=== PATIENT | male | born 1940 | race Two or more races ===

== ENCOUNTER 2019-12-25 09:42 | Inpatient (IN) | payer OTHER, MEDICAID ==
[~2019-12-25] VITALS: Ht 162.6 cm; Wt 49.6 kg
[~2019-12-25 09:42] MED LIST: MULT-48 OR; NIF10C GT
[2019-12-25 10:17] LABS: Basophils # (auto) 0 10 ^3/uL (0-0.2); Basophils % (auto) 0.4 % (0.0-2.0); Eosinophils # (auto) 0.2 10 ^3/uL (0-0.8); Eosinophils % (auto) 2.6 % (0.0-7.0); Hematocrit 42.8 % (41.0-53.0); Hemoglobin 13.9 g/dL (13.5-17.5); Lymphocytes # (auto) 2.5 10 ^3/uL (0.4-5.4); Lymphocytes % (auto) 34.8 % (10.0-50.0); Mean Corpuscular Hemoglobin 32.5 pg (28.0-32.0); Mean Corpuscular Hgb Conc. 32.6 g/dL (32.0-36.0); Mean Corpuscular Volume 99.8 fL (80.0-100.0); Monocytes # (auto) 0.9 10 ^3/uL (0-1.3); Monocytes % (auto) 11.8 % (0.0-12.0); Neutrophils # (auto) 3.7 10 ^3/uL (1.6-8.6); Neutrophils % (auto) 50.4 % (37.0-80.0); Platelet Count (auto) 234 10^3/uL (140-450); Red Blood Cells 4.29 10^6/uL (4.5-5.90); Red Cell Distribution Width 13.9 % (11.8-14.3); White Blood Cell 7.3 10^3/uL (4.4-10.8)
[2019-12-25 10:36] LABS: INR 1.01 (0.9-1.15); Partial Thromboplastin Time 27.9 sec (23.64-32.05)
[2019-12-25 10:38] LABS: Albumin 3.1 g/dL (3.4-5.0); BUN/Creatinine Ratio 17.1; Calcium 8.7 mg/dL (8.5-10.1); Potassium 4.2 mmol/L (3.5-5.1)
[2019-12-25 10:43] LABS: Bilirubin, Total 0.6 mg/dL (0.2-1.0); Total Protein 8.2 g/dL (6.4-8.2)
[2019-12-25] MEDS ORDERED: ASPirin 81 mg TAB PO ONE (11:00)
[2019-12-25] MEDS ORDERED: HEPARIN SODIUM (PORCINE) 5000 UNITS/ML 1ML VIAL IV ONE ×2 (11:00→11:30)
[2019-12-25] MEDS ORDERED: ASPirin 325 MG TAB PO ONE (11:30)
[2019-12-25] MEDS ORDERED: LOSA-39 PO (14:12)
[2019-12-25] MEDS ORDERED: CHOL10009 PO (14:12)
[2019-12-25] MEDS ORDERED: MORPHINE SULF INJ 2 MG/ML SYRINGE 1ML IV PRN ×2 (14:15)
[2019-12-25] MEDS ORDERED: NITROGLYCERIN 0.4 MG SL TAB SL PRN (14:15)
[2019-12-25] MEDS ORDERED: hydrALAZINE HCL 20 MG/ML VL IV PRN (14:15)
[2019-12-25] MEDS ORDERED: ONDANSETRON HCL 4 MG/2 ML VIAL IV PRN (14:15)
[2019-12-25] MEDS ORDERED: ACETAMINOPHEN 500 MG TAB PO PRN (14:15)
[2019-12-25] MEDS ORDERED: HYDROcodone-ACET 5/325MG TAB PO PRN (14:15)
[2019-12-25] MEDS ORDERED: LIDOCAINE 2%HCL (LOCAL ANESTH.) INJ 20ML MDV ONE (14:17)
[2019-12-25] MEDS ORDERED: IODIXANOL 320MG/ML 100ML BTL IV ONE ×2 (14:17→15:27)
[2019-12-25] MEDS ORDERED: ANGIOMAX 250 MG VIAL IV ONE (15:00)
[2019-12-25] MEDS ORDERED: fentaNYL CITRATE 100 MCG/2 ML VL ONE (15:00)
[2019-12-25] MEDS ORDERED: MIDAZOLAM HCL 1MG/1ML-2 ML VIAL ONE (15:00)
[2019-12-25] MEDS ORDERED: SODIUM CHL 0.9% 50 ML ONE (15:01)
[2019-12-25 15:07] LABS: Cholesterol 171 mg/dL (< 200); HDL Cholesterol 44 mg/dL (40-59); LDL Cholesterol 127 mg/dL (< 100); Triglycerides 116 mg/dL (< 150)
[2019-12-25] MEDS ORDERED: HEPARIN SODIUM (PORCINE) 5000 UNITS/ML 1ML VIAL ONE (15:17)
[2019-12-25] MEDS ORDERED: VERAPAMIL 2.5MG/ML INJ 2ML VIAL IV ONE (15:17)
[2019-12-25] MEDS ORDERED: CLOPIDOGREL 300 MG TAB ONE (15:49)
[2019-12-25 20:00] VITALS: BP 144/72
[2019-12-25] MEDS: ATORVASTATIN 20 MG TAB PO SCH (21:05)
[2019-12-25] MEDS: FAMOTIDINE 20 MG TAB PO SCH (21:06)
[2019-12-25] MEDS ORDERED: LUTE6TAB PO (23:59)
[2019-12-26] VITALS: BP 139/56
[2019-12-26 04:00] VITALS: BP 123/52
[2019-12-26 05:45] LABS: Basophils # (auto) 0 10 ^3/uL (0-0.2); Basophils % (auto) 0.4 % (0.0-2.0); Eosinophils # (auto) 0.3 10 ^3/uL (0-0.8); Eosinophils % (auto) 3.7 % (0.0-7.0); Hematocrit 36.4 % (41.0-53.0); Hemoglobin 12.5 g/dL (13.5-17.5); Lymphocytes # (auto) 1.9 10 ^3/uL (0.4-5.4); Lymphocytes % (auto) 26.7 % (10.0-50.0); Mean Corpuscular Hemoglobin 33.6 pg (28.0-32.0); Mean Corpuscular Hgb Conc. 34.5 g/dL (32.0-36.0); Mean Corpuscular Volume 97.4 fL (80.0-100.0); Monocytes # (auto) 0.9 10 ^3/uL (0-1.3); Monocytes % (auto) 13.4 % (0.0-12.0); Neutrophils # (auto) 3.9 10 ^3/uL (1.6-8.6); Neutrophils % (auto) 55.8 % (37.0-80.0); Nucleated Red Blood Cells % 0.1 %; Platelet Count (auto) 202 10^3/uL (140-450); Red Blood Cells 3.74 10^6/uL (4.5-5.90); Red Cell Distribution Width 13.3 % (11.8-14.3)
[2019-12-26 05:52] LABS: INR 1.04 (0.9-1.15); Partial Thromboplastin Time 30.3 sec (23.64-32.05)
[2019-12-26 05:58] LABS: Cholesterol 154 mg/dL (< 200)
[2019-12-26 06:00] LABS: HDL Cholesterol 37 mg/dL (40-59); LDL Cholesterol 107 mg/dL (< 100); Triglycerides 100 mg/dL (< 150)
[2019-12-26 06:03] LABS: Potassium 3.7 mmol/L (3.5-5.1)
[2019-12-26 06:08] LABS: BUN/Creatinine Ratio 18.9
[2019-12-26 08:00] VITALS: BP 132/48
[2019-12-26] MEDS: ASPirin-EC 81 mg tab PO SCH (09:34)
[2019-12-26] MEDS ORDERED: LISINOPRIL 10 MG TAB PO SCH (10:00)
[2019-12-26] MEDS: CLOPIDOGREL BISULFATE 75 MG TAB PO SCH (10:00)
[2019-12-26] MEDS ORDERED: LOSARTAN POTASSIUM 50 MG TAB PO SCH ×2 (10:00)
[2019-12-26 11:45] VITALS: BP 126/50
[2019-12-26] MEDS ORDERED: FUROSEMIDE 20 MG/2 ML VIAL IV ONE (15:45)
[2019-12-26 16:00] VITALS: BP 142/53
[2019-12-26 20:00] VITALS: BP 140/55
[2019-12-26] MEDS: ATORVASTATIN 20 MG TAB PO SCH (22:18)
[2019-12-26] MEDS: FAMOTIDINE 20 MG TAB PO SCH (22:18)
[2019-12-27] VITALS (9 sets, daily range): BP systolic 103–144; BP diastolic 29–67
[2019-12-27 06:57] LABS: Basophils # (auto) 0 10 ^3/uL (0-0.2); Basophils % (auto) 0.2 % (0.0-2.0); Eosinophils # (auto) 0.3 10 ^3/uL (0-0.8); Eosinophils % (auto) 3.2 % (0.0-7.0); Hematocrit 38.9 % (41.0-53.0); Hemoglobin 13.6 g/dL (13.5-17.5); Lymphocytes # (auto) 2.6 10 ^3/uL (0.4-5.4); Lymphocytes % (auto) 31.3 % (10.0-50.0); Mean Corpuscular Hemoglobin 34.3 pg (28.0-32.0); Monocytes # (auto) 1.2 10 ^3/uL (0-1.3); Neutrophils # (auto) 4.2 10 ^3/uL (1.6-8.6); Neutrophils % (auto) 50.3 % (37.0-80.0); Nucleated Red Blood Cells % 0.1 %; Platelet Count (auto) 194 10^3/uL (140-450); Red Blood Cells 3.97 10^6/uL (4.5-5.90); Red Cell Distribution Width 13.4 % (11.8-14.3); White Blood Cell 8.3 10^3/uL (4.4-10.8)
[2019-12-27 07:16] LABS: Albumin 2.6 g/dL (3.4-5.0); Calcium 8.5 mg/dL (8.5-10.1); Magnesium 2.2 mg/dL (1.6-2.6); Potassium 3.5 mmol/L (3.5-5.1)
[2019-12-27 07:20] LABS: BUN/Creatinine Ratio 17.7; Bilirubin, Total 0.6 mg/dL (0.2-1.0); Total Protein 7.3 g/dL (6.4-8.2)
[2019-12-27 07:49] LABS: INR 1.01 (0.9-1.15); Partial Thromboplastin Time 29.1 sec (23.64-32.05)
[2019-12-27] MEDS: ASPirin-EC 81 mg tab PO SCH (09:20)
[2019-12-27] MEDS: CLOPIDOGREL BISULFATE 75 MG TAB PO SCH (09:21)
[2019-12-27] MEDS ORDERED: LIDOCAINE 2%HCL (LOCAL ANESTH.) INJ 20ML MDV ONE (14:33)
[2019-12-27] MEDS ORDERED: fentaNYL CITRATE 100 MCG/2 ML VL ONE (14:52)
[2019-12-27] MEDS ORDERED: ceFAZolin 1GM/50ML 50 ML IV ONE (14:52)
[2019-12-27] MEDS ORDERED: MIDAZOLAM HCL 1MG/1ML-2 ML VIAL ONE (14:52)
[2019-12-27] MEDS ORDERED: VANCOMYCIN HCL 1000 MG VL ONE (14:52)
[2019-12-27] MEDS ORDERED: VANCOMYCIN 1GM/250ML 250 ML IV ONE (14:53)
[2019-12-27] MEDS ORDERED: diphenhdrAMINE HCL 50 MG/1 ML VL ONE (15:16)
[2019-12-27] MEDS: FUROSEMIDE 20 MG/2 ML VIAL IV SCH (16:36)
[2019-12-27] MEDS: ATORVASTATIN 20 MG TAB PO SCH (21:02)
[2019-12-27] MEDS: FAMOTIDINE 20 MG TAB PO SCH (21:02)
[2019-12-28 05:31] VITALS: BP 137/68
[2019-12-28 09:00] VITALS: BP 126/72
[2019-12-28] MEDS: ASPirin-EC 81 mg tab PO SCH (10:07)
[2019-12-28] MEDS: FUROSEMIDE 20 MG/2 ML VIAL IV SCH (10:07)
[2019-12-28] MEDS: CLOPIDOGREL BISULFATE 75 MG TAB PO SCH (10:07)
[2019-12-28] MEDS ORDERED: ATOR20TA50 PO (10:23)
[2019-12-28] MEDS ORDERED: METO25TA5 PO (10:23)
[2019-12-28] MEDS ORDERED: ASP81EC PO (10:23)
[2019-12-28] MEDS ORDERED: CLOP75TA28 PO (10:23)
[2019-12-28 12:33] VITALS: BP 126/72
[2019-12-28 13:00] VITALS: BP 131/66
== END 2019-12-28 13:50 | disposition home or self-care (01) | DRG 242 ==
LOC: ER 09:42 → ICU CENTRL 09:43 → ER 11:52 → DOU IN ICU 19:52 → TELE-CENTR 12-27 21:20
PROVIDERS: ADMIT Nurse Practitioner Acute Care; ATTEND Internal Medicine
PROC: 027135Z Dilation of Coronary Artery, Two Arteries with Two Drug-eluting Intraluminal Devices, Percutaneous Approach (ICD-10-PCS; 2019-12-25)
PROC: 4A023N7 Measurement of Cardiac Sampling and Pressure, Left Heart, Percutaneous Approach (ICD-10-PCS; 2019-12-25)
PROC: B2111ZZ Fluoroscopy of Multiple Coronary Arteries using Low Osmolar Contrast (ICD-10-PCS; 2019-12-25)
PROC: B2151ZZ Fluoroscopy of Left Heart using Low Osmolar Contrast (ICD-10-PCS; 2019-12-25)
PROC: 0JH606Z Insertion of Pacemaker, Dual Chamber into Chest Subcutaneous Tissue and Fascia, Open Approach (ICD-10-PCS; principal; 2019-12-27)
PROC: 02H63JZ Insertion of Pacemaker Lead into Right Atrium, Percutaneous Approach (ICD-10-PCS; 2019-12-27)
PROC: 02HK3JZ Insertion of Pacemaker Lead into Right Ventricle, Percutaneous Approach (ICD-10-PCS; 2019-12-27)
DX: I21.4 Non-ST elevation (NSTEMI) myocardial infarction (principal); I50.31 Acute diastolic (congestive) heart failure; I44.2 Atrioventricular block, complete; R00.1 Bradycardia, unspecified; I25.10 Atherosclerotic heart disease of native coronary artery without angina pectoris; E78.5 Hyperlipidemia, unspecified; F17.210 Nicotine dependence, cigarettes, uncomplicated; I11.0 Hypertensive heart disease with heart failure; J44.9 Chronic obstructive pulmonary disease, unspecified
CPT/HCPCS: 33208; 36415; 71045; 80048; 80053; 80061; 83735; 83880; 84443; 84484; 85025; 85610; 85730; 86141; 86850; 86900; 86901; 87081; 92928; 93005; 93306; 93458; 96361; 96374; 96375; 99152; 99153; C1785; C1874; C1887; G0378; J0690; J2250; Q9967

== ENCOUNTER 2022-04-04 07:00 | Emergency (ER) | payer OTHER, MEDICAID ==
[~2022-04-04] VITALS: Ht 167.6 cm; Wt 57.2 kg
[~2022-04-04 07:00] MED LIST changes: +ASPI-394 PO; +ATOR20TA50 PO; +CHOL10009 PO; +CLOP75TA28 PO; +LOSA-39 PO; +METO25TA5 PO; -MULT-48 OR; -NIF10C GT
[2022-04-04 08:06] LABS: Basophils # (auto) 0 10 ^3/uL (0-0.2); Basophils % (auto) 0.3 % (0.0-2.0); Eosinophils # (auto) 0.1 10 ^3/uL (0-0.8); Eosinophils % (auto) 2.5 % (0.0-7.0); Hematocrit 33.9 % (41.0-53.0); Hemoglobin 11.2 g/dL (13.5-17.5); Lymphocytes # (auto) 2.2 10 ^3/uL (0.4-5.4); Lymphocytes % (auto) 37.5 % (10.0-50.0); Mean Corpuscular Hemoglobin 32.2 pg (28.0-32.0); Mean Corpuscular Hgb Conc. 33.1 g/dL (32.0-36.0); Mean Corpuscular Volume 97.3 fL (80.0-100.0); Monocytes # (auto) 0.7 10 ^3/uL (0-1.3); Monocytes % (auto) 12.2 % (0.0-12.0); Neutrophils # (auto) 2.8 10 ^3/uL (1.6-8.6); Neutrophils % (auto) 47.5 % (37.0-80.0); Nucleated Red Blood Cells % 0.1 %; Red Blood Cells 3.49 10^6/uL (4.5-5.90); Red Cell Distribution Width 14.3 % (11.8-14.3); White Blood Cell 5.9 10^3/uL (4.4-10.8)
[2022-04-04 08:19] LABS: Albumin 2.6 g/dL (3.4-5.0); BUN/Creatinine Ratio 19.1; Calcium 7.8 mg/dL (8.5-10.1); Magnesium 2.1 mg/dL (1.6-2.6); Potassium 3.6 mmol/L (3.5-5.1)
[2022-04-04 08:22] LABS: Bilirubin, Total 0.4 mg/dL (0.2-1.0); Total Protein 7.6 g/dL (6.4-8.2)
[2022-04-04] MEDS ORDERED: SODIUM CHLORIDE 0.9% 1,000 ML IV ONE (08:30)
[2022-04-04 09:08] LABS: INR 1.02 (0.9-1.15); Partial Thromboplastin Time 26.5 sec (23.6-33.0)
[2022-04-04 09:12] LABS: Urine Bacteria NONE SEEN /hpf (None Seen); Urine Blood Negative /uL (Negative); Urine Specific Gravity 1.012 (1.001-1.035); Urine WBC <1 /hpf (0 - 3)
[2022-04-04] MEDS ORDERED: cloNIDine HCL 0.1 MG TAB PO ONE (11:15)
[2022-04-04] MEDS ORDERED: IOHEXOL 350 MG/ML 100ML IJ ONE (11:32)
[2022-04-04 13:01] VITALS: BP 140/58
[2022-04-04] MEDS ORDERED: CEFD300C2 PO (13:33)
== END 2022-04-04 13:52 | disposition home or self-care (01) ==
LOC: ER 07:00
DX: R00.2 Palpitations (principal); R06.02 Shortness of breath; R59.0 Localized enlarged lymph nodes; I12.9 Hypertensive chronic kidney disease with stage 1 through stage 4 chronic kidney disease, or unspecified chronic kidney disease; N18.30 Chronic kidney disease, stage 3 unspecified; J44.9 Chronic obstructive pulmonary disease, unspecified; Z95.0 Presence of cardiac pacemaker; Z87.891 Personal history of nicotine dependence; Z79.82 Long term (current) use of aspirin; Z79.01 Long term (current) use of anticoagulants; Z79.899 Other long term (current) drug therapy
CPT/HCPCS: 36415; 71046; 71275; 80053; 81001; 82962; 83735; 83880; 84443; 84484; 85025; 85379; 85610; 85730; 93005; 96360; 96361; 99285; J7030; Q9967

== ENCOUNTER 2024-02-14 14:47 | Emergency (ER) | payer OTHER, MEDICAID ==
[~2024-02-14 14:47] MED LIST changes: +CEFD300C2 PO; -LOSA-39 PO; +LOSA-535 PO
[2024-02-14 18:47] VITALS: BP 130/44; PULSE 60; RESP 18; TEMP 98.5; O2SAT 97
[2024-02-14] MEDS ORDERED: NAPHSOL OP (19:09)
[2024-02-14] MEDS: DexAMETHasone SOD PHOS 10MG/1ML VIAL INJ IM ONE (19:09)
== END 2024-02-14 19:37 | disposition home or self-care (01) ==
LOC: ER 14:47
DX: H10.13 Acute atopic conjunctivitis, bilateral (principal); J44.9 Chronic obstructive pulmonary disease, unspecified; I10 Essential (primary) hypertension; Z87.891 Personal history of nicotine dependence; Z95.0 Presence of cardiac pacemaker; Z79.899 Other long term (current) drug therapy
CPT/HCPCS: 96372; 99283; J1100

== ENCOUNTER 2024-04-10 12:43 | Emergency (ER) | payer OTHER, MEDICAID ==
[~2024-04-10] VITALS: Ht 162.6 cm; Wt 56.7 kg
[~2024-04-10 12:43] MED LIST changes: +NAPHSOL OP
[2024-04-10 14:24] VITALS: BP 121/61; PULSE 82; RESP 18; TEMP 97.6; O2SAT 98
[2024-04-10] MEDS ORDERED: SODI1KIT2 (14:42)
[2024-04-10] MEDS ORDERED: SALI0.6562 (14:42)
== END 2024-04-10 14:44 | disposition home or self-care (01) ==
LOC: ER 12:43
DX: R04.0 Epistaxis (principal); R09.81 Nasal congestion; I10 Essential (primary) hypertension; J44.9 Chronic obstructive pulmonary disease, unspecified; Z98.890 Other specified postprocedural states; Z79.899 Other long term (current) drug therapy

== ENCOUNTER 2024-05-28 09:27 | Inpatient (IN) | payer OTHER, MEDICAID ==
[~2024-05-28] VITALS: Ht 162.6 cm; Wt 58.9 kg
[~2024-05-28 09:27] MED LIST changes: +SALI0.6562; +SODI1KIT2
[2024-05-28 10:08] LABS: Basophils # (auto) 0 10 ^3/uL (0-0.2); Basophils % (auto) 0.4 % (0.0-2.0); Eosinophils # (auto) 0.4 10 ^3/uL (0-0.8); Eosinophils % (auto) 4.4 % (0.0-7.0); Hematocrit 26.6 % (41.0-53.0); Hemoglobin 8.4 g/dL (13.5-17.5); Lymphocytes # (auto) 3.3 10 ^3/uL (0.4-5.4); Lymphocytes % (auto) 37.3 % (10.0-50.0); Mean Corpuscular Hemoglobin 25.2 pg (28.0-32.0); Mean Corpuscular Hgb Conc. 31.4 g/dL (32.0-36.0); Mean Corpuscular Volume 80.3 fL (80.0-100.0); Monocytes # (auto) 1.1 10 ^3/uL (0-1.3); Monocytes % (auto) 12.6 % (0.0-12.0); Neutrophils % (auto) 45.3 % (37.0-80.0); Red Blood Cells 3.31 10^6/uL (4.5-5.90); Red Cell Distribution Width 16.6 % (11.8-14.3); White Blood Cell 8.8 10^3/uL (4.4-10.8)
[2024-05-28 10:24] LABS: Chloride 108 mmol/L (98-107); Potassium 4.6 mmol/L (3.5-5.1); Sodium 137 mmol/L (136-145)
[2024-05-28 10:25] LABS: Anion Gap 6 (5-15); Carbon Dioxide 23 mmol/L (20-30)
[2024-05-28 10:26] LABS: Calcium 8.9 mg/dL (8.7-10.4)
[2024-05-28 10:31] LABS: BUN/Creatinine Ratio 17.4 (10.0-20.0); Blood Urea Nitrogen 27 mg/dL (9-23); Glucose 101 mg/dL (74-106)
[2024-05-28 10:49] VITALS: PULSE 64; RESP 16; O2SAT 98
[2024-05-28] MEDS ORDERED: ACETAMINOPHEN 325 MG TAB PO PRN (13:00)
[2024-05-28] MEDS: SODIUM CHLORIDE 0.9% 1,000 ML IV SCH (13:00)
[2024-05-28] MEDS ORDERED: [UNRECOGNIZED DRUG - OTHER] SCH (13:15)
[2024-05-28 13:24] LABS: Triglycerides 101 mg/dL (< 150)
[2024-05-28 13:25] LABS: LDL Cholesterol 99 mg/dL (< 100)
[2024-05-28 13:26] LABS: Cholesterol 148 mg/dL (< 200); HDL Cholesterol 32 mg/dL (40-59)
[2024-05-28 13:31] LABS: INR 1.06 (0.9-1.15); Prothrombin Time 11.2 sec (9.3-11.8)
[2024-05-28 13:39] LABS: Anisocytosis Slight; Hypochromia Slight; Platelet Estimate Adequate
[2024-05-28 13:40] LABS: Nucleated Red Blood Cells % 0.2 %; Tear Drop Cells FEW
[2024-05-28 14:31] LABS: % Iron Saturation 7.2 % (20-55)
[2024-05-28] MEDS ORDERED: CHOL20007 OR (16:11)
[2024-05-28] MEDS ORDERED: APIX2.5T PO (16:11)
[2024-05-28 16:50] VITALS: PULSE 65; RESP 18
[2024-05-28 17:14] VITALS: BP 149/45; PULSE 60; RESP 16; TEMP 98.7; O2SAT 98
[2024-05-28 20:00] VITALS: PULSE 60; RESP 17; O2SAT 95
[2024-05-28 21:00] VITALS: BP 136/46; PULSE 63; RESP 17; TEMP 98.2; O2SAT 96
[2024-05-28] MEDS: ATORVASTATIN 20 MG TAB PO SCH (21:25)
[2024-05-28] MEDS ORDERED: METOPROLOL TARTRATE 25 MG TAB PO SCH (22:00)
[2024-05-29] VITALS (7 sets, daily range): BP systolic 118–153; BP diastolic 50–67; PULSE 60–70; RESP 17–18; TEMP 98–98.8; O2SAT 95–98
[2024-05-29 05:42] LABS: Basophils # (auto) 0 10 ^3/uL (0-0.2); Basophils % (auto) 0.4 % (0.0-2.0); Eosinophils # (auto) 0.4 10 ^3/uL (0-0.8); Eosinophils % (auto) 4.6 % (0.0-7.0); Hematocrit 24.6 % (41.0-53.0); Hemoglobin 7.7 g/dL (13.5-17.5); Lymphocytes # (auto) 2.5 10 ^3/uL (0.4-5.4); Lymphocytes % (auto) 32.2 % (10.0-50.0); Mean Corpuscular Hemoglobin 25.2 pg (28.0-32.0); Mean Corpuscular Hgb Conc. 31.4 g/dL (32.0-36.0); Mean Corpuscular Volume 80.4 fL (80.0-100.0); Monocytes # (auto) 1.1 10 ^3/uL (0-1.3); Monocytes % (auto) 14.1 % (0.0-12.0); Neutrophils # (auto) 3.8 10 ^3/uL (1.6-8.6); Neutrophils % (auto) 48.7 % (37.0-80.0); Nucleated Red Blood Cells % 0.1 %; Red Blood Cells 3.06 10^6/uL (4.5-5.90); Red Cell Distribution Width 16.7 % (11.8-14.3); White Blood Cell 7.8 10^3/uL (4.4-10.8)
[2024-05-29 05:53] LABS: Alkaline Phosphatase 70 U/L (46-116); Anion Gap 7 (5-15); Aspartate Aminotransferase 14 U/L (13-40); BUN/Creatinine Ratio 18.2 (10.0-20.0); Bilirubin, Total 0.5 mg/dL (0.2-1.0); Blood Urea Nitrogen 27 mg/dL (9-23); Calcium 8.4 mg/dL (8.7-10.4); Carbon Dioxide 21 mmol/L (20-30); Chloride 112 mmol/L (98-107); Glucose 94 mg/dL (74-106); Sodium 140 mmol/L (136-145); Total Protein 6.4 g/dL (5.7-8.2)
[2024-05-29 06:10] LABS: Alanine Aminotransferase < 9 U/L (7-40)
[2024-05-29 06:50] LABS: Urine Bacteria None Seen /hpf (None Seen)
[2024-05-29 07:09] LABS: Urine Blood Negative /uL (Negative); Urine Clarity Clear (Clear); Urine Color Light-Yellow (Yellow); Urine Protein, UAD Negative (Negative); Urine Specific Gravity 1.016 (1.001-1.035); Urine Urobilinogen Normal (Negative); Urine WBC 1 /hpf (0 - 3); Urine pH 5.5 (5.0-9.0)
[2024-05-29 09:02] LABS: Protein, Urine 16.1 mg/dL (0.0-11.9)
[2024-05-29 09:05] LABS: Creatinine, Urine 91.48 mg/dL (30.0-125.0)
[2024-05-29] MEDS: METOPROLOL SUCCINATE XL 50 MG TAB PO SCH (10:00)
[2024-05-29] MEDS: OMNIPAQUE 12mg/ml 500ml ORAL SOLUTION PO ONE (10:07)
[2024-05-29] MEDS: PANTOPRAZOLE 40 MG/10 ML VIAL INJ IV SCH (11:35)
[2024-05-29] MEDS: LOSARTAN POTASSIUM 50 MG TAB PO SCH (11:39)
[2024-05-29] MEDS: CHOLECALCIFEROL (VITD3) 1,000UNIT=25mCg TAB PO SCH (11:41)
[2024-05-29 13:18] LABS: Folate (Folic Acid) 11.62 ng/mL (>5.38)
[2024-05-29] MEDS: FERROUS SULFATE 325mg EC TAB PO SCH (17:45)
[2024-05-30] VITALS (7 sets, daily range): BP systolic 116–142; BP diastolic 43–58; PULSE 51–79; RESP 16–19; TEMP 97.8–98.7; O2SAT 94–99
[2024-05-30 05:59] LABS: Basophils # (auto) 0 10 ^3/uL (0-0.2); Basophils % (auto) 0.6 % (0.0-2.0); Eosinophils # (auto) 0.4 10 ^3/uL (0-0.8); Hemoglobin 7.9 g/dL (13.5-17.5); Lymphocytes # (auto) 2.2 10 ^3/uL (0.4-5.4)
[2024-05-30 06:03] LABS: Eosinophils % (auto) 5.6 % (0.0-7.0); Hematocrit 24.8 % (41.0-53.0); Lymphocytes % (auto) 30.8 % (10.0-50.0); Mean Corpuscular Hemoglobin 25.4 pg (28.0-32.0); Mean Corpuscular Hgb Conc. 31.6 g/dL (32.0-36.0); Mean Corpuscular Volume 80.3 fL (80.0-100.0); Monocytes % (auto) 13.5 % (0.0-12.0); Neutrophils # (auto) 3.6 10 ^3/uL (1.6-8.6); Neutrophils % (auto) 49.5 % (37.0-80.0); Red Blood Cells 3.09 10^6/uL (4.5-5.90); Red Cell Distribution Width 17.2 % (11.8-14.3); White Blood Cell 7.3 10^3/uL (4.4-10.8)
[2024-05-30 06:49] LABS: Albumin 2.8 g/dL (3.2-4.8); Alkaline Phosphatase 66 U/L (46-116); Anion Gap 7 (5-15); BUN/Creatinine Ratio 16.6 (10.0-20.0); Blood Urea Nitrogen 25 mg/dL (9-23); Calcium 8.2 mg/dL (8.7-10.4); Carbon Dioxide 20 mmol/L (20-30); Chloride 110 mmol/L (98-107); Glucose 86 mg/dL (74-106); Potassium 3.9 mmol/L (3.5-5.1); Sodium 137 mmol/L (136-145)
[2024-05-30 06:50] LABS: Aspartate Aminotransferase 15 U/L (13-40); Bilirubin, Total 0.5 mg/dL (0.2-1.0); Total Protein 6.4 g/dL (5.7-8.2)
[2024-05-30 06:59] LABS: Alanine Aminotransferase < 9 U/L (7-40)
[2024-05-31] VITALS (9 sets, daily range): BP systolic 113–143; BP diastolic 44–63; PULSE 62–70; RESP 16–18; TEMP 97.6–98.6; O2SAT 95–99
[2024-05-31 06:14] LABS: Basophils # (auto) 0 10 ^3/uL (0-0.2); Basophils % (auto) 0.5 % (0.0-2.0); Eosinophils # (auto) 0.4 10 ^3/uL (0-0.8); Mean Corpuscular Hemoglobin 25.8 pg (28.0-32.0); Neutrophils # (auto) 4.1 10 ^3/uL (1.6-8.6); Nucleated Red Blood Cells % 0.1 %; White Blood Cell 8.3 10^3/uL (4.4-10.8)
[2024-05-31 06:16] LABS: Eosinophils % (auto) 5.2 % (0.0-7.0); Hematocrit 25.1 % (41.0-53.0); Hemoglobin 8.1 g/dL (13.5-17.5); Lymphocytes # (auto) 2.7 10 ^3/uL (0.4-5.4); Lymphocytes % (auto) 32.3 % (10.0-50.0); Mean Corpuscular Hgb Conc. 32.4 g/dL (32.0-36.0); Mean Corpuscular Volume 79.6 fL (80.0-100.0); Monocytes % (auto) 12.5 % (0.0-12.0); Neutrophils % (auto) 49.5 % (37.0-80.0); Red Blood Cells 3.15 10^6/uL (4.5-5.90); Red Cell Distribution Width 16.9 % (11.8-14.3)
[2024-05-31 06:26] LABS: Alanine Aminotransferase 13 U/L (7-40); Albumin 2.9 g/dL (3.2-4.8); Alkaline Phosphatase 74 U/L (46-116); Anion Gap 6 (5-15); Aspartate Aminotransferase 26 U/L (13-40); BUN/Creatinine Ratio 15.7 (10.0-20.0); Bilirubin, Total 0.3 mg/dL (0.2-1.0); Blood Urea Nitrogen 25 mg/dL (9-23); Calcium 8.6 mg/dL (8.7-10.4); Carbon Dioxide 21 mmol/L (20-30); Chloride 110 mmol/L (98-107); Glucose 89 mg/dL (74-106); Potassium 4.1 mmol/L (3.5-5.1); Sodium 137 mmol/L (136-145); Total Protein 6.7 g/dL (5.7-8.2)
[2024-06-01] VITALS (8 sets, daily range): BP systolic 123–150; BP diastolic 47–71; PULSE 58–81; RESP 16–17; TEMP 97.2–98.9; O2SAT 94–99
[2024-06-01 07:21] LABS: Basophils # (auto) 0.1 10 ^3/uL (0-0.2); Basophils % (auto) 0.6 % (0.0-2.0); Eosinophils # (auto) 0.5 10 ^3/uL (0-0.8); Eosinophils % (auto) 5.6 % (0.0-7.0); Hematocrit 26.5 % (41.0-53.0); Hemoglobin 8.6 g/dL (13.5-17.5); Lymphocytes # (auto) 2.6 10 ^3/uL (0.4-5.4); Lymphocytes % (auto) 29.6 % (10.0-50.0); Mean Corpuscular Hgb Conc. 32.3 g/dL (32.0-36.0); Mean Corpuscular Volume 80.6 fL (80.0-100.0); Monocytes % (auto) 11.4 % (0.0-12.0); Neutrophils # (auto) 4.7 10 ^3/uL (1.6-8.6); Neutrophils % (auto) 52.8 % (37.0-80.0); Nucleated Red Blood Cells % 0.1 %; Red Blood Cells 3.29 10^6/uL (4.5-5.90); Red Cell Distribution Width 16.8 % (11.8-14.3); White Blood Cell 8.9 10^3/uL (4.4-10.8)
[2024-06-01 07:25] LABS: Alanine Aminotransferase 18 U/L (7-40); Alkaline Phosphatase 84 U/L (46-116); Anion Gap 4 (5-15); Aspartate Aminotransferase 24 U/L (13-40); BUN/Creatinine Ratio 15.4 (10.0-20.0); Blood Urea Nitrogen 23 mg/dL (9-23); Calcium 8.7 mg/dL (8.7-10.4); Carbon Dioxide 23 mmol/L (20-30); Chloride 112 mmol/L (98-107); Glucose 88 mg/dL (74-106); Potassium 4.3 mmol/L (3.5-5.1); Sodium 139 mmol/L (136-145)
[2024-06-01 07:26] LABS: Bilirubin, Total 0.3 mg/dL (0.2-1.0); Total Protein 6.7 g/dL (5.7-8.2)
[2024-06-01] MEDS: GOLYTELY 4L KIT PO ONE (11:41)
[2024-06-02] VITALS (9 sets, daily range): BP systolic 130–175; BP diastolic 43–69; PULSE 58–79; RESP 16–18; TEMP 97.5–98.6; O2SAT 95–100
[2024-06-02 04:52] LABS: Basophils # (auto) 0.1 10 ^3/uL (0-0.2); Basophils % (auto) 0.7 % (0.0-2.0); Eosinophils # (auto) 0.5 10 ^3/uL (0-0.8); Hemoglobin 8.7 g/dL (13.5-17.5); Mean Corpuscular Hemoglobin 25.7 pg (28.0-32.0); Mean Corpuscular Hgb Conc. 31.8 g/dL (32.0-36.0); Monocytes # (auto) 0.9 10 ^3/uL (0-1.3)
[2024-06-02 04:55] LABS: Eosinophils % (auto) 5.5 % (0.0-7.0); Hematocrit 27.2 % (41.0-53.0); Lymphocytes # (auto) 3.1 10 ^3/uL (0.4-5.4); Lymphocytes % (auto) 34.6 % (10.0-50.0); Mean Corpuscular Volume 80.7 fL (80.0-100.0); Monocytes % (auto) 10.2 % (0.0-12.0); Neutrophils # (auto) 4.3 10 ^3/uL (1.6-8.6); Nucleated Red Blood Cells % 0.1 %; Red Blood Cells 3.37 10^6/uL (4.5-5.90); White Blood Cell 8.9 10^3/uL (4.4-10.8)
[2024-06-02 05:13] LABS: Alanine Aminotransferase 16 U/L (7-40); Albumin 3.1 g/dL (3.2-4.8); Alkaline Phosphatase 80 U/L (46-116); Anion Gap 6 (5-15); Aspartate Aminotransferase 22 U/L (13-40); BUN/Creatinine Ratio 15.2 (10.0-20.0); Blood Urea Nitrogen 22 mg/dL (9-23); Calcium 8.8 mg/dL (8.7-10.4); Carbon Dioxide 22 mmol/L (20-30); Chloride 111 mmol/L (98-107); Glucose 71 mg/dL (74-106); Potassium 4.3 mmol/L (3.5-5.1); Sodium 139 mmol/L (136-145)
[2024-06-02 05:14] LABS: Bilirubin, Total 0.5 mg/dL (0.2-1.0); Total Protein 6.8 g/dL (5.7-8.2)
[2024-06-02] MEDS: GOLYTELY 4L KIT PO ONE (06:00)
[2024-06-02] MEDS: MAGNESIUM CITRATE SOLUTION 300 ML BTL PO ONE (08:09)
[2024-06-02] MEDS ORDERED: hydrALAZINE HCL 20 MG/ML VL IV PRN (12:00)
[2024-06-02] MEDS: SODIUM CHLORIDE 0.9% 1,000 ML IV SCH (13:11)
[2024-06-02] MEDS ORDERED: MIDAZOLAM HCL 2MG/2ML 2ml VIAL (1mg/ml) ONE (15:41)
[2024-06-02] MEDS ORDERED: PROPOFOL 10 MG/ML 20 ML IV ONE (15:55)
[2024-06-02] MEDS: ONDANSETRON HCL 4 MG/2 ML VIAL IV ONE (16:15)
[2024-06-03 05:11] VITALS: BP 139/57; PULSE 68; RESP 18; TEMP 98; O2SAT 97
[2024-06-03 05:58] LABS: Eosinophils # (auto) 0.3 10 ^3/uL (0-0.8); Hemoglobin 7.9 g/dL (13.5-17.5); White Blood Cell 8.4 10^3/uL (4.4-10.8)
[2024-06-03 05:59] LABS: Basophils # (auto) 0.1 10 ^3/uL (0-0.2); Basophils % (auto) 0.7 % (0.0-2.0); Eosinophils % (auto) 3.7 % (0.0-7.0); Hematocrit 24.9 % (41.0-53.0); Lymphocytes # (auto) 1.7 10 ^3/uL (0.4-5.4); Lymphocytes % (auto) 19.7 % (10.0-50.0); Mean Corpuscular Hemoglobin 26.3 pg (28.0-32.0); Mean Corpuscular Hgb Conc. 31.7 g/dL (32.0-36.0); Mean Corpuscular Volume 82.9 fL (80.0-100.0); Monocytes # (auto) 0.7 10 ^3/uL (0-1.3); Monocytes % (auto) 8.6 % (0.0-12.0); Neutrophils # (auto) 5.7 10 ^3/uL (1.6-8.6); Neutrophils % (auto) 67.3 % (37.0-80.0); Red Cell Distribution Width 17.6 % (11.8-14.3)
[2024-06-03 06:28] LABS: Alanine Aminotransferase 11 U/L (7-40); Albumin 2.8 g/dL (3.2-4.8); Alkaline Phosphatase 72 U/L (46-116); Anion Gap 9 (5-15); Aspartate Aminotransferase 23 U/L (13-40); BUN/Creatinine Ratio 12.7 (10.0-20.0); Bilirubin, Total 0.5 mg/dL (0.2-1.0); Blood Urea Nitrogen 19 mg/dL (9-23); Calcium 8.2 mg/dL (8.7-10.4); Carbon Dioxide 17 mmol/L (20-30); Chloride 113 mmol/L (98-107); Glucose 60 mg/dL (74-106); Potassium 3.9 mmol/L (3.5-5.1); Sodium 139 mmol/L (136-145); Total Protein 6.3 g/dL (5.7-8.2)
[2024-06-03 08:00] VITALS: PULSE 74; O2SAT 96
[2024-06-03 09:00] VITALS: BP 136/54; PULSE 67; RESP 16; TEMP 97.6; O2SAT 98
[2024-06-03 13:00] VITALS: BP 159/47; PULSE 67; RESP 15; TEMP 97.5; O2SAT 98
[2024-06-03] MEDS ORDERED: FER325T PO (16:24)
[2024-06-03 16:56] VITALS: BP 134/72; PULSE 68; RESP 18; TEMP 97.4; O2SAT 96
[2024-06-03 17:00] VITALS: BP 180/69; PULSE 81; RESP 16; TEMP 97.6; O2SAT 96
== END 2024-06-03 17:25 | disposition home or self-care (01) | DRG 375 ==
LOC: ER 09:27 → OVERFLOW 13:03 → CENTRAL 16:50 → TELE-CENTR 05-29 11:57
PROVIDERS: ADMIT Internal Medicine; ATTEND Emergency Medicine
PROC: 0DBM8ZZ Excision of Descending Colon, Via Natural or Artificial Opening Endoscopic (ICD-10-PCS; 2024-06-02)
PROC: 0DBN8ZZ Excision of Sigmoid Colon, Via Natural or Artificial Opening Endoscopic (ICD-10-PCS; 2024-06-02)
PROC: 0DBP8ZX Excision of Rectum, Via Natural or Artificial Opening Endoscopic, Diagnostic (ICD-10-PCS; 2024-06-02)
PROC: 0DB98ZX Excision of Duodenum, Via Natural or Artificial Opening Endoscopic, Diagnostic (ICD-10-PCS; principal; 2024-06-02 15:37)
PROC: 0DB78ZX Excision of Stomach, Pylorus, Via Natural or Artificial Opening Endoscopic, Diagnostic (ICD-10-PCS; 2024-06-02 15:37)
DX: D49.0 Neoplasm of unspecified behavior of digestive system (principal); N17.9 Acute kidney failure, unspecified; D50.9 Iron deficiency anemia, unspecified; K44.9 Diaphragmatic hernia without obstruction or gangrene; K25.9 Gastric ulcer, unspecified as acute or chronic, without hemorrhage or perforation; I25.10 Atherosclerotic heart disease of native coronary artery without angina pectoris; I48.0 Paroxysmal atrial fibrillation; K63.5 Polyp of colon; K64.8 Other hemorrhoids; J44.9 Chronic obstructive pulmonary disease, unspecified; I12.9 Hypertensive chronic kidney disease with stage 1 through stage 4 chronic kidney disease, or unspecified chronic kidney disease; N18.31 Chronic kidney disease, stage 3a; Z95.0 Presence of cardiac pacemaker; Z79.01 Long term (current) use of anticoagulants; Z79.82 Long term (current) use of aspirin; Z79.899 Other long term (current) drug therapy; Z87.891 Personal history of nicotine dependence; Z82.3 Family history of stroke; Z82.49 Family history of ischemic heart disease and other diseases of the circulatory system; Z95.5 Presence of coronary angioplasty implant and graft
CPT/HCPCS: 36415; 71045; 74176; 76775; 80048; 80053; 80061; 81001; 82270; 82570; 82607; 82746; 83540; 83550; 83930; 84156; 84300; 84443; 84484; 85025; 85610; 86850; 86900; 86901; 93005; 93306; 96360; G0378; J2250; J2470; J2704

== ENCOUNTER 2024-06-09 20:44 | Emergency (ER) | payer OTHER, MEDICAID ==
[~2024-06-09] VITALS: Ht 162.6 cm; Wt 54.5 kg
[~2024-06-09 20:44] MED LIST changes: -ASPI-394 PO; -CEFD300C2 PO; +CHOL20007 OR; -CLOP75TA28 PO; +FER325T PO; -SODI1KIT2
[2024-06-09 22:36] LABS: Eosinophils # (auto) 0.1 10 ^3/uL (0-0.8); Hemoglobin 9.5 g/dL (13.5-17.5); Monocytes # (auto) 1.2 10 ^3/uL (0-1.3)
[2024-06-09 22:39] LABS: Basophils # (auto) 0.1 10 ^3/uL (0-0.2); Basophils % (auto) 0.6 % (0.0-2.0); Eosinophils % (auto) 1.4 % (0.0-7.0); Lymphocytes # (auto) 1.5 10 ^3/uL (0.4-5.4); Lymphocytes % (auto) 19.1 % (10.0-50.0); Mean Corpuscular Hemoglobin 26.4 pg (28.0-32.0); Mean Corpuscular Hgb Conc. 31.6 g/dL (32.0-36.0); Mean Corpuscular Volume 83.7 fL (80.0-100.0); Monocytes % (auto) 15.5 % (0.0-12.0); Neutrophils % (auto) 63.4 % (37.0-80.0); Nucleated Red Blood Cells % 0.1 %; Platelet Count (auto) 263 10^3/uL (140-450); Red Blood Cells 3.59 10^6/uL (4.5-5.90); White Blood Cell 7.9 10^3/uL (4.4-10.8)
[2024-06-09 22:57] LABS: Albumin 3.5 g/dL (3.2-4.8); Alkaline Phosphatase 80 U/L (46-116); Anion Gap 6 (5-15); Aspartate Aminotransferase 19 U/L (13-40); BUN/Creatinine Ratio 10.1 (10.0-20.0); Bilirubin, Total 0.8 mg/dL (0.2-1.0); Blood Urea Nitrogen 14 mg/dL (9-23); Calcium 8.6 mg/dL (8.7-10.4); Carbon Dioxide 22 mmol/L (20-30); Chloride 108 mmol/L (98-107); Glucose 107 mg/dL (74-106); Potassium 4.2 mmol/L (3.5-5.1); Sodium 136 mmol/L (136-145); Total Protein 7.9 g/dL (5.7-8.2)
[2024-06-09 23:17] LABS: Alanine Aminotransferase 10 U/L (7-40)
[2024-06-09 23:35] VITALS: BP 177/63; PULSE 77; RESP 18; TEMP 99.5; O2SAT 95
[2024-06-09 23:53] LABS: Rapid Influenza A Negative (Negative); Rapid Influenza B Negative (Negative)
[2024-06-09 23:55] LABS: COVID19 ANTIGEN SOFIA FIA POSITIVE (NEGATIVE)
[2024-06-10] MEDS ORDERED: NIRM1TAB8 PO (00:29)
== END 2024-06-10 01:01 | disposition home or self-care (01) ==
LOC: ER 20:44
DX: U07.1 COVID-19 (principal); I10 Essential (primary) hypertension; J44.9 Chronic obstructive pulmonary disease, unspecified; Z98.890 Other specified postprocedural states; Z87.891 Personal history of nicotine dependence
CPT/HCPCS: 36415; 71045; 80053; 85025; 87426; 87804

== ENCOUNTER 2025-03-08 09:55 | Inpatient (IN) | payer OTHER, MEDICAID ==
[~2025-03-08] VITALS: Ht 198.1 cm; Wt 57.7 kg
[~2025-03-08 09:55] MED LIST changes: +NIRM1TAB8 PO
[2025-03-08 10:24] VITALS: PULSE 84; RESP 16; O2SAT 96
--- NOTE | 2025-03-08 10:31 | ED.PDOC ---
History of Present Illness HPI Comments 84-year-old male presents with a chief complaints of nausea, vomiting, and diarrhea. Patient's daughter mentions that patient ate soup prior to onset of symptoms. Patient denies any abdomen pain at this time. Patient is not currently vomiting. Patient states that the symptoms are made worse after eat ing. Chief Complaint: Nausea/Vomiting Time Seen by MD: 10:08 Primary Care Provider: JEISON LATIF Reviewed Notes: Medications, Allergies Allergies: Coded Allergies: NO KNOWN ALLERGIES (Unverified , 12/13/13) Home Meds Active Scripts Nirmatrelvir/Ritonavir (PAXLOVID 20 x 150 MG & 10 x 100MG) 1 Tab Tab, 1 TAB PO BID for 5 Days, #10 TAB Prov:OLIVIA JACKSON PAC 06/10/24 Ferrous Sulfate (FERROUS SULFATE) 325 Mg Tb, 325 MG PO EOD for 30 Days, #30 TAB Prov:RAY GLASS MD 06/03/24 Saline (Saline Nasal [place]) 0.65 % Spr, 0.65 % NA UD for 30 Days, #1 SPRAY 0 Refills Prov:MARGY QUEVEDO FOOD SAFETY SPECIALIST 04/10/24 Naphazoline W/ Pheniramine (Naphcon-A 0.025-0.3 %) 1 Matilde Matilde, 1-2 DROP OP QIDPRN, #15 ML Prov:OLIVIA JACKSON 02/14/24 Metoprolol Tartrate (Metoprolol Tartrate) 25 Mg Tab, 1 TAB PO BID, #120 TAB 1 Re fill Prov:LUANA JACKSON MD 12/28/19 Atorvastatin Calcium (ATORVASTATIN CALCIUM) 20 Mg Tab, 40 MG PO HS for 90 Days, #90 TAB Prov:LUANA JACKSON MD 12/28/19 Reported Medications Cholecalciferol (VITAMIN D3) 2,000 Unit Tab, 2000 UNIT OR, TAB 05/28/24 Losartan Potassium (Losartan Potassium) 100 Mg Tab, 100 MG PO DAILY for 30 Days, MG 05/28/24 Cholecalciferol (Vitamin D3) 1,000 Unit Cap, 1000 UNIT PO DAILY, CAP 12/25/19 Losartan Potassium (Losartan Potassium) 100 Mg Tab, 100 MG PO DAILY, TAB 12/25/19 Information Source: Patient Mode of Arrival: Ambulatory Severity: Moderate Timing: Days Duration: Since onset Prehospital treatment: None Past Medical History PAST MEDICAL HISTORY: COPD, HTN Surgical History: Pacemaker Family History Family History: Reviewed,noncontributory to illness Social History Smoker: Quit Greater Than 1 Year, Cigarettes Alcohol: Denies ETOH Use Drugs: Denies Drug Use Lives In: Home Constitutional: denies: chills, diaphoresis, fatigue, fever, malaise, sweats, weakness, others EENTM: denies: blurred vision, double vision, ear bleeding, ear discharge, ear drainage, ear pain, ear ringing, eye pain, eye redness, hearing loss, mouth pain, mouth swelling, nasal discharge, nose bleeding, nose congestion, nose pain, photophobia, tearing, throat pain, throat swelling, voice changes, others Respiratory: denies: cough, hemoptysis, orthopnea, SOB at rest, shortness of breath, SOB with excertion, stridor, wheezing, others Cardiovascular: denies: chest pain, dizzy spells, diaphoresis, Dyspnea on exertion, edema, irregular heart beat, left arm pain, lightheadedness, palpitations, PND, syncope, others Gastrointestinal: reports: diarrhea, nausea, vomiting; denies: abdomen distend ed, abdominal pain, blood streaked bowels, constipated, dysphagia, difficulty swallowing, hematemesis, melena, poor appetite, poor fluid intake, rectal bleeding, rectal pain, others Genitourinary: denies: burning, dysuria, flank pain, frequency, hematuria, incontinence, penile discharge, penile sore, pain, testicle pain, testicle swelling, urgency, others Neurological: denies: dizziness, fainting, headache, left sided numbness, left sided weakness, numbness, paresthesia, pre-existing deficit, right sided numbness, right sided weakness, seizure, speech problems, tingling, tremors, weakness, others Musculoskeletal: denies: back pain, gout, joint pain, joint swelling, muscle pain, muscle stiffness, neck pain, others Integumetry: denies: bruises, change in color, change in hair/nails, dryness, laceration, lesions, lumps, rash, wounds, others Allergic/Immunocompromised: denies: Difficulty Healing, Frequent Infections, Hives, Itching, others Hematologic/Lymphatic: denies: anemia, blood clots, easy bleeding, easy bruising, swollen glands, others Endocrine: denies: excessive hunger, excessive sweating, excessive thirst, excessive urination, flushing, intolerance to cold, intolerance to heat, unexplained weight gain, unexplained weight loss, others Psychiatric: denies: anxiety, bipolar disorder, depression, hopeless, panic disorder, schizophrenia, sleepless, suicidal, others All Other Systems: Reviewed and Negative Physical Exam General Appearance: No Apparent Distress, Normal HEENT: Normal ENT Inspection, Pharynx Normal, TMs Normal Neck: Full Range of Motion, Non-Tender, Normal, Normal Inspection Respiratory: Chest Non-Tender, Lungs Clear, No Accessory Muscle Use, No Respiratory Distress, Normal Breath Sounds Cardiovascular: No Edema, No JVD, No Murmur, No Gallop, Normal Peripheral Pulses, Regular Rate/Rhythm Breast Exam: Deferred Gastrointestinal: No Organomegaly, Non Tender, No Pulsatile Mass, Normal Bowel Sounds, Soft Genitalia: Deferred Pelvic: Deferred Rectal: Deferred Extremities: No calf tenderness, Normal capillary refill, Normal inspection, Normal range of motion, Non-tender, No pedal edema Musculoskeletal : Apperance: Normal Neurologic: Alert, certified personal chef II-XII nml as Tested, No Motor Deficits, Normal Affect, Normal Mood, No Sensory Deficits Cerebellar Function: Normal Reflexes: Normal Skin: Dry, Normal Color, Warm Lymphatic: No Adenopathy Was a procedure done? Was a procedure done?: No Differential Dx Considerations may include: Gastroenteritis, gastritis, viral syndrome, nausea and vomiting. X-Ray, Labs, Meds, VS Vital Signs Date Time Temp Pulse Resp B/P (MAP) Pulse Ox O2 Delivery O2 Flow Rate FiO2 03/08/25 10:24 84 16 96 Room Air* 0 21 03/08/25 10:22 97.6 79 18 135/63 (87) 96 97.6 03/08/25 10:02 98.8 89 18 135/68 (90) 95 98.8 Lab Test 03/08/25 10:28 03/08/25 10:09 Range/Units White Blood Count 6.8 4.4-10.8 10^3/uL Red Blood Count 3.88 L 4.5-5.90 10^6/uL Hemoglobin 12.2 L 13.5-17.5 g/dL Hematocrit 36.7 L 41.0-53.0 % Mean Corpuscular Volume 94.6 80.0-100.0 fL Mean Corpuscular Hemoglobin 31.5 28.0-32.0 pg Mean Corpuscular Hemoglobin Concent 33.3 32.0-36.0 g/dL Red Cell Distribution Width 14.2 11.8-14.3 % Platelet Count 275 140-450 10^3/uL Mean Platelet Volume 7.5 6.9-10.8 fL Neutrophils (%) (Auto) 42.8 37.0-80.0 % Lymphocytes (%) (Auto) 38.0 10.0-50.0 % Monocytes (%) (Auto) 15.4 H 0.0-12.0 % Eosinophils (%) (Auto) 3.8 0.0-7.0 % Basophils (%) (Auto) 0.0 0.0-2.0 % Neutrophils # (Auto) 2.9 1.6-8.6 10 ^3/uL Lymphocytes # (Auto) 2.6 0.4-5.4 10 ^3/uL Monocytes # (Auto) 1.0 0-1.3 10 ^3/uL Eosinophils # (Auto) 0.3 0-0.8 10 ^3/uL Basophils # (Auto) 0 0-0.2 10 ^3/uL Nucleated Red Blood Cells 0.0 % Sodium Level 138 136-145 mmol/L Potassium Level 3.4 L 3.5-5.1 mmol/L Chloride Level 111 H 98-107 mmol/L Carbon Dioxide Level 21 20-31 mmol/L Anion Gap 6 5-15 Blood Urea Nitrogen 13 9-23 mg/dL Creatinine 1.42 H 0.700-1.30 mg/dL Glomerular Filtration Rate Calc 48 >90 mL/min BUN/Creatinine Ratio 9.2 L 10.0-20.0 Serum Glucose 89 74-106 mg/dL Calcium Level 8.4 L 8.7-10.4 mg/dL Total Bilirubin 0.6 0.2-1.0 mg/dL Aspartate Amino Transferase (AST) 13 13-40 U/L Alanine Aminotransferase (ALT) < 9 7-40 U/L Alkaline Phosphatase 93 46-116 U/L Total Protein 7.8 5.7-8.2 g/dL Albumin 3.6 3.2-4.8 g/dL Lipase 38 12-53 U/L Urine Color Light-yellow Yellow Urine Clarity Clear Clear Urine pH 5.5 5.0-9.0 Urine Specific [place] 1.015 1.001-1.035 Urine Protein 1+ H Negative Urine Ketones Negative Negative Urine Blood 1+ H Negative /uL Urine Nitrite Negative Negative Urine Bilirubin Negative Negative Urine Urobilinogen Normal Negative mg/dL Urine Leukocyte Esterase Negative Negative /uL Urine RBC 1 0 - 3 /hpf Urine Microscopic WBC 1 0-3 /HPF Urine Squamous Epithelial Cells None seen <5 /hpf Urine Bacteria None seen None Seen /hpf Urine Mucus Few None Seen Urine Glucose Normal Normal mg/dL Current Medications Medications (Trade) Dose Ordered Sig/Maurisio Route Start Time Stop Time Status Last Admin Sodium Chloride 1,000 ml @ 1,000 mls/hr Q1H ONCE IV 03/08/25 10:30 03/08/25 11:29 DC 03/08/25 10:35 Time of 1ST Reevaluation: 10:38 Reevaluation 1ST: Unchanged Patient Education/Counseling: Diagnosis, Treatment Family Education/Counseling: No Family Present Departure 1 Departure Time of Disposition: 14:15 (Patient presents with intractable nausea and vomiting and diarrhea. We will admit patient for further workup and expert consultation) Impression: Primary Impression: Intractable vomiting Additional Impression: Diarrhea Qualified Codes: R19.7 - Diarrhea, unspecified Disposition: 09 ADMITTED INPATIENT Admit to: Med Surg Condition: Serious Critical Care Note Critical Care Time?: No Stability Stability form required: No Heart Score Heart Score: Heart Score Response (Comments) Value History N/A 0 EKG N/A 0 Age N/A 0 Risk Factors N/A 0 Troponin N/A 0 Total 0 I personally scribed for LESLY ANTONY MD ([email or web address]) on 03/08/25 at 10:31. Electronically submitted by Padilla Pierre ([email or web address]). LESLY ANTONY MD March 08, 2025 10:31
[2025-03-08] MEDS: ONDANSETRON HCL 4 MG/2 ML VIAL IV ONE (10:32)
[2025-03-08] MEDS: SODIUM CHLORIDE 0.9% 1,000 ML IV ONE ×2 (10:35→14:46)
[2025-03-08 10:42] LABS: Basophils # (auto) 0 10 ^3/uL (0-0.2); Eosinophils # (auto) 0.3 10 ^3/uL (0-0.8); Eosinophils % (auto) 3.8 % (0.0-7.0); Hematocrit 36.7 % (41.0-53.0); Hemoglobin 12.2 g/dL (13.5-17.5); Lymphocytes # (auto) 2.6 10 ^3/uL (0.4-5.4); Mean Corpuscular Hemoglobin 31.5 pg (28.0-32.0); Mean Corpuscular Hgb Conc. 33.3 g/dL (32.0-36.0); Mean Corpuscular Volume 94.6 fL (80.0-100.0); Monocytes % (auto) 15.4 % (0.0-12.0); Neutrophils # (auto) 2.9 10 ^3/uL (1.6-8.6); Neutrophils % (auto) 42.8 % (37.0-80.0); Platelet Count (auto) 275 10^3/uL (140-450); Red Blood Cells 3.88 10^6/uL (4.5-5.90); Red Cell Distribution Width 14.2 % (11.8-14.3); White Blood Cell 6.8 10^3/uL (4.4-10.8)
[2025-03-08 11:00] LABS: Albumin 3.6 g/dL (3.2-4.8); Alkaline Phosphatase 93 U/L (46-116); Anion Gap 6 (5-15); BUN/Creatinine Ratio 9.2 (10.0-20.0); Blood Urea Nitrogen 13 mg/dL (9-23); Carbon Dioxide 21 mmol/L (20-31); Glucose 89 mg/dL (74-106); Lipase 38 U/L (12-53); Sodium 138 mmol/L (136-145); Total Protein 7.8 g/dL (5.7-8.2)
[2025-03-08 11:01] LABS: Bilirubin, Total 0.6 mg/dL (0.2-1.0)
[2025-03-08 11:03] LABS: Alanine Aminotransferase < 9 U/L (7-40); Aspartate Aminotransferase 13 U/L (13-40); Calcium 8.4 mg/dL (8.7-10.4); Chloride 111 mmol/L (98-107); Potassium 3.4 mmol/L (3.5-5.1)
[2025-03-08 12:09] LABS: Urine Bacteria None Seen /hpf (None Seen)
[2025-03-08 12:19] LABS: Urine Blood 1+ /uL (Negative); Urine Clarity Clear (Clear); Urine Color Light-Yellow (Yellow); Urine Mucus FEW (None Seen); Urine Protein, UAD 1+ (Negative); Urine Specific Gravity 1.015 (1.001-1.035); Urine Squamous Epithelial Cell None Seen /hpf (<5); Urine Urobilinogen Normal (Negative); Urine WBC 1 /HPF (0-3); Urine pH 5.5 (5.0-9.0)
[2025-03-08] MEDS: IOHEXOL 350 MG/ML 100ML IJ ONE (12:50)
--- NOTE | 2025-03-08 14:02 | DVH ---
CT CT AB PEL WITH IV CON ONLY INDICATION: abdominal pain EXAM DATE: 03/08/2025 12:47 PM COMPARISON: CT CT AB PEL WITH ORAL CON ONLY on DOS: 05/29/24 RADIATION DOSE: CTDIvol: 5.11 mGy, DLP: 251.76 mGy*cm PROCEDURE: Helical CT images were obtained of the abdomen and pelvis with IV contrast Sagittal and co valerie reconstructions are provided. ORAL CONTRAST: None. ADDITIONAL IMAGES / REFORMATS: None All CT s cans at this medical facility are performed using dose modulation techniques as appropriate to a perf ormed exam including the following: Automated exposure control was utilized; adjustment of the MA and /or KV according to patient size; and use of iterative reconstruction technique. FINDINGS: LUNG BASE: Normal. LIVER: Subcentimeter hepatic cystic lesions are too small to characterize. GALLBLADDER AND BILIARY TREE: No calcified gallstones. Normal caliber wall. No intra- or extrahepatic biliary ductal dilation. PANCREAS: Normal. SPLEEN: Normal. BOWEL: Normal. Normal appendix. ADRENALS: Normal. KIDNEYS AND URETER: Subcentimeter kidney cysts are seen. BLADDER: Normal. REPRODUCTIVE ORGANS: Normal. LYMPH NODES:No lymphadenopathy. PERITONEUM: No ascites or free air. No other fluid collection. VESSELS: Scattered atherosclerotic calcifications are noted. RETROPERITONEUM: Normal. ABDOMINAL WALL: Normal. BONES: Scattered osseous degenerative changes are noted. IMPRESSION: No acute intraabdominal abnormality.
[2025-03-08] MEDS: FAMOTIDINE (10MG/ML) 2ML VL IV ONE (14:46)
[2025-03-08 16:10] VITALS: PULSE 62; RESP 17; O2SAT 97
[2025-03-08] MEDS ORDERED: DOCUSATE SOD 100 MG CAP PO PRN (16:45)
[2025-03-08] MEDS ORDERED: ACETAMINOPHEN 325 MG TAB PO PRN (16:45)
[2025-03-08] MEDS ORDERED: ONDANSETRON HCL 4 MG/2 ML VIAL IV PRN (16:45)
--- NOTE | 2025-03-08 16:56 | DVHHP2 ---
Admitting Diagnosis: Nausea and vomiting History of Present Illness 84-year-old male presents with a chief complaints of nausea, vomiting, and diarrhea. Patient's daughter mentions that patient ate soup prior to onset of symptoms. Patient denies any abdomen pain at this time. Patient is not currently vomiting. Patient states that the symptoms are made worse after eating. PAST MEDICAL HISTORY: COPD, HTN Surgical History: Pacemaker Family History Family History: Reviewed,noncontributory to illness Social History Smoker: Quit Greater Than 1 Year, Cigarettes Alcohol: Denies ETOH Use Drugs: Denies Drug Use Lives In: Home Patient Family History: Cerebrovascular accident (CVA) G8 MOTHER G8 SISTER FH: cancer G8 SISTER Hypertension G8 MOTHER Allergies: Coded Allergies: NO KNOWN ALLERGIES (Unverified , 12/13/13) Home Meds Active Scripts Nirmatrelvir/Ritonavir (PAXLOVID 20 x 150 MG & 10 x 100MG) 1 Tab Tab, 1 TAB PO BID for 5 Days, #10 TAB Prov:OLIVIA JACKSON 06/10/24 Ferrous Sulfate (FERROUS SULFATE) 325 Mg Tb, 325 MG PO EOD for 30 Days, #30 TAB Prov:RAY GLASS MD 06/03/24 Saline (Saline Nasal [place]) 0.65 % Spr, 0.65 % NA UD for 30 Days, #1 SPRAY 0 Refills Prov:MARGY QUEVEDO NP 04/10/24 Naphazoline W/ Pheniramine (Naphcon-A 0.025-0.3 %) 1 Matilde Matilde, 1-2 DROP OP QIDPR N, #15 ML Prov:OLIVIA JACKSON 02/14/24 Metoprolol Tartrate (Metoprolol Tartrate) 25 Mg Tab, 1 TAB PO BID, #120 TAB 1 Refill Prov:LUANA JACKSON MD 12/28/19 Atorvastatin Calcium (ATORVASTATIN CALCIUM) 20 Mg Tab, 40 MG PO HS for 90 Days, #90 TAB Prov:LUANA JACKSON MD 12/28/19 Reported Medications Cholecalciferol (VITAMIN D3) 2,000 Unit Tab, 2000 UNIT OR, TAB 05/28/24 Losartan Potassium (Losartan Potassium) 100 Mg Tab, 100 MG PO DAILY for 30 Days, MG 05/28/24 Cholecalciferol (Vitamin D3) 1,000 Unit Cap, 1000 UNIT PO DAILY, CAP 12/25/19 Losartan Potassium (Losartan Potassium) 100 Mg Tab, 100 MG PO DAILY, TAB 12/25/19 Current Medications Current Medications Medications (Trade) Dose Ordered Sig/Maurisio Route PRN Reason Start Time Stop Time Status Last Admin Sodium Chloride (Saline Lock N[place]) 10 ml Q8HR IV 03/08/25 22:00 UNV Docusate Sodium (Colace Capsule) 100 mg BIDPRN PRN PO FOR CONSTIPATION 03/08/25 16:45 UNV Acetaminophen (Tylenol Tablet) 650 mg Q6HP PRN PO PAIN SCALE 1-3 OR TEMP>100.4 03/08/25 16:45 UNV Ondansetron HCl (Zofran) 4 mg Q4HP PRN IV NAUSEA / VOMITING 03/08/25 16:45 UNV Enoxaparin Sodium (Lovenox) 40 mg DAILY SC 03/09/25 10:00 UNV Pantoprazole Sodium (Protonix) 40 mg DAILY IV 03/08/25 16:45 UNV Atorvastatin Calcium (Lipitor) 40 mg HS PO 03/08/25 22:00 UNV Ferrous Sulfate 325 mg EOD PO 03/10/25 10:00 UNV Metoprolol Tartrate (Lopressor Tablet) 25 mg BID PO 03/08/25 22:00 UNV Patient Own Medication 100 mg DAILY PO 03/09/25 10:00 UNV Vital Signs Vital Signs Date Time Temp Pulse Resp B/P (MAP) Pulse Ox O2 Delivery O2 Flow Rate FiO2 03/08/25 14:51 97.4 70 18 160/60 (93) 97 97.4 03/08/25 10:24 Room Air* 0 21 Physical Exam Generally-84 years old male, frail, lying in bed. No apparent distress HEENT-atraumatic, normocephalic Heart-regular rate and rhythm Lungs clear to auscultate bilaterally Abdomen soft nontender nondistended Musculoskeletal-no edema cyanosis Neuro-AO x3, no focal deficits Results Labs Test 03/08/25 10:28 03/08/25 10:09 Range/Units White Blood Count 6.8 4.4-10.8 10^3/uL Red Blood Count 3.88 L 4.5-5.90 10^6/uL Hemoglobin 12.2 L 13.5-17.5 g/dL Hematocrit 36.7 L 41.0-53.0 % Mean Corpuscular Volume 94.6 80.0-100.0 fL Mean Corpuscular Hemoglobin 31.5 28.0-32.0 pg Mean Corpuscular Hemoglobin Concent 33.3 32.0-36.0 g/dL Red Cell Distribution Width 14.2 11.8-14.3 % Platelet Count 275 140-450 10^3/uL Mean Platelet Volume 7.5 6.9-10.8 fL Neutrophils (%) (Auto) 42.8 37.0-80.0 % Lymphocytes (%) (Auto) 38.0 10.0-50.0 % Monocytes (%) (Auto) 15.4 H 0.0-12.0 % Eosinophils (%) (Auto) 3.8 0.0-7.0 % Basophils (%) (Auto) 0.0 0.0-2.0 % Neutrophils # (Auto) 2.9 1.6-8.6 10 ^3/uL Lymphocytes # (Auto) 2.6 0.4-5.4 10 ^3/uL Monocytes # (Auto) 1.0 0-1.3 10 ^3/uL Eosinophils # (Auto) 0.3 0-0.8 10 ^3/uL Basophils # (Auto) 0 0-0.2 10 ^3/uL Nucleated Red Blood Cells 0.0 % Sodium Level 138 136-145 mmol/L Potassium Level 3.4 L 3.5-5.1 mmol/L Chloride Level 111 H 98-107 mmol/L Carbon Dioxide Level 21 20-31 mmol/L Anion Gap 6 5-15 Blood Urea Nitrogen 13 9-23 mg/dL Creatinine 1.42 H 0.700-1.30 mg/dL Glomerular Filtration Rate Calc 48 >90 mL/min BUN/Creatinine Ratio 9.2 L 10.0-20.0 Serum Glucose 89 74-106 mg/dL Calcium Level 8.4 L 8.7-10.4 mg/dL Total Bilirubin 0.6 0.2-1.0 mg/dL Aspartate Amino Transferase (AST) 13 13-40 U/L Alanine Aminotransferase (ALT) < 9 7-40 U/L Alkaline Phosphatase 93 46-116 U/L Total Protein 7.8 5.7-8.2 g/dL Albumin 3.6 3.2-4.8 g/dL Lipase 38 12-53 U/L Urine Color Light-yellow Yellow Urine Clarity Clear Clear Urine pH 5.5 5.0-9.0 Urine Specific [place] 1.015 1.001-1.035 Urine Protein 1+ H Negative Urine Ketones Negative Negative Urine Blood 1+ H Negative /uL Urine Nitrite Negative Negative Urine Bilirubin Negative Negative Urine Urobilinogen Normal Negative mg/dL Urine Leukocyte Esterase Negative Negative /uL Urine RBC 1 0 - 3 /hpf Urine Microscopic WBC 1 0-3 /HPF Urine Squamous Epithelial Cells None seen <5 /hpf Urine Bacteria None seen None Seen /hpf Urine Mucus Few None Seen Urine Glucose Normal Normal mg/dL Primary Diagnosis Acute gastroenteritis Plan For past three days, the patient would have emesis and diarrhea twice a day Patient dehydrated IV fluids for hydration Resume home meds Liquid diet advance as tolerated PPI for GI prophylaxis Full code Lovenox for DVT prophylaxis Plan discussed with: Patient Date of Service: March 08, 2025 Billing Provider: OMI SWIFT MD Common Visit Codes: [id number] INP/OBS CARE (MOD) OMI SWIFT MD March 08, 2025 16:56
[2025-03-08] MEDS: PANTOPRAZOLE 40 MG/10 ML VIAL INJ IV SCH (17:33)
[2025-03-08] MEDS: LACTATED RINGER'S 1,000 ML IV ONE (17:34)
[2025-03-08] MEDS: POTASSIUM EFFERVESENT TAB 25 MEQ PO ONE (17:34)
[2025-03-08 17:58] VITALS: BP 154/53; PULSE 76; RESP 18; TEMP 97.4; O2SAT 98
[2025-03-08 20:00] VITALS: RESP 18; O2SAT 97
[2025-03-08 21:00] VITALS: BP 158/70; PULSE 71; RESP 20; TEMP 98; O2SAT 97
[2025-03-08] MEDS: ATORVASTATIN 20 MG TAB PO SCH (21:10)
[2025-03-08] MEDS: METOPROLOL TARTRATE 25 MG TAB PO SCH (21:12)
[2025-03-08] MEDS: SODIUM CHLOR 0.9% PF (SALINE LOCK) 10ML VIAL/SYR IV SCH (21:12)
[2025-03-09 01:00] VITALS: BP 88/52; PULSE 66; RESP 18; TEMP 97.6; O2SAT 95
[2025-03-09 05:00] VITALS: BP 174/64; PULSE 83; RESP 19; TEMP 97.4; O2SAT 96
[2025-03-09 06:19] LABS: Basophils # (auto) 0 10 ^3/uL (0-0.2); Basophils % (auto) 0.1 % (0.0-2.0); Eosinophils # (auto) 0.3 10 ^3/uL (0-0.8); Eosinophils % (auto) 5.8 % (0.0-7.0); Hematocrit 32.8 % (41.0-53.0); Hemoglobin 11.1 g/dL (13.5-17.5); Lymphocytes # (auto) 1.7 10 ^3/uL (0.4-5.4); Lymphocytes % (auto) 29.7 % (10.0-50.0); Mean Corpuscular Hemoglobin 31.6 pg (28.0-32.0); Monocytes # (auto) 0.8 10 ^3/uL (0-1.3); Monocytes % (auto) 15.1 % (0.0-12.0); Neutrophils # (auto) 2.8 10 ^3/uL (1.6-8.6); Neutrophils % (auto) 49.3 % (37.0-80.0); Nucleated Red Blood Cells % 0.1 %; Platelet Count (auto) 248 10^3/uL (140-450); Red Blood Cells 3.53 10^6/uL (4.5-5.90); Red Cell Distribution Width 14.1 % (11.8-14.3); White Blood Cell 5.6 10^3/uL (4.4-10.8)
[2025-03-09 06:22] LABS: Alkaline Phosphatase 75 U/L (46-116); Anion Gap 8 (5-15); BUN/Creatinine Ratio 9.6 (10.0-20.0); Bilirubin, Total 0.4 mg/dL (0.2-1.0); Blood Urea Nitrogen 11 mg/dL (9-23); Carbon Dioxide 21 mmol/L (20-31); Glucose 80 mg/dL (74-106); Potassium 3.7 mmol/L (3.5-5.1); Sodium 139 mmol/L (136-145); Total Protein 6.5 g/dL (5.7-8.2)
[2025-03-09 06:24] LABS: Alanine Aminotransferase < 9 U/L (7-40); Albumin 2.9 g/dL (3.2-4.8); Aspartate Aminotransferase 11 U/L (13-40); Chloride 110 mmol/L (98-107)
[2025-03-09] MEDS: LOSARTAN POTASSIUM 50 MG TAB PO SCH (08:12)
[2025-03-09] MEDS: ENOXAPARIN SOD 40 MG/0.4 ML SYRINGE SC SCH (08:13)
[2025-03-09 09:00] VITALS: BP 166/71; PULSE 73; RESP 17; TEMP 97.4; O2SAT 94
[2025-03-09 13:00] VITALS: BP 114/57; PULSE 60; RESP 16; TEMP 97.8; O2SAT 95
--- NOTE | 2025-03-09 13:01 | DVHPN2 ---
Subjective Minimally tolerating p.o., abdominal pain improving. Nausea and vomiting improving. Diarrhea improving. Reviewed: H&P Changes from previous H/P or p: No Changes General: Per HPI Objective Vitals Vital Signs Date Time Temp Pulse Resp B/P (MAP) Pulse Ox O2 Delivery O2 Flow Rate FiO2 03/09/25 09:00 97.4 73 17 166/71 (102) 94 97.4 03/09/25 08:15 Room Air* 0 21 Intake/Output Intake and Output 03/09/25 07:00 Intake Total 2375 ml Balance 2375 ml Intake Oral 300 ml IV Total 2075 ml # Voids 4 Exam GEN: Healthy appearing, well-developed, NAD. HEENT: NC/AT; MMM. CV: RRR, no m/r/g. LUNGS: CTAB, no w/r/c. ABD: Epigastrium tender to palpation,, hypoactive bowel sounds. EXT: skin Warm, well perfused. no rashes. No clubbing, cyanosis, or edema. NEURO: Ambulating with no limitations. No focal deficits. Medications Current Medications Medications Dose Ordered Sig/Maurisio Route Start Time Stop Time Status Last Admin Dose Admin Sodium Chloride 10 ml Q8HR IV 03/08/25 22:00 03/08/25 21:12 10 ML Docusate Sodium 100 mg BIDPRN PRN PO 03/08/25 16:45 Acetaminophen 650 mg Q6HP PRN PO 03/08/25 16:45 Ondansetron HCl 4 mg Q4HP PRN IV 03/08/25 16:45 Enoxaparin Sodium 40 mg DAILY SC 03/09/25 10:00 03/09/25 08:13 40 MG Pantoprazole Sodium 40 mg DAILY IV 03/08/25 16:45 03/09/25 08:11 40 MG Atorvastatin Calcium 40 mg HS PO 03/08/25 22:00 Ferrous Sulfate 325 mg EOD PO 03/10/25 10:00 Metoprolol Tartrate 25 mg BID PO 03/08/25 22:00 03/09/25 08:12 25 MG Losartan Potassium 100 mg DAILY PO 03/09/25 10:00 03/09/25 08:12 100 MG Ceftriaxone Sodium 50 ml @ 100 mls/hr DAILY@09 IV 03/10/25 09:00 Metronidazole 100 ml @ 100 mls/hr Q8HR IV 03/09/25 14:00 Laboratory Results Laboratory Tests 03/09/25 05:28 Chemistry Test 03/09/25 05:28 Albumin 2.9 g/dL (3.2-4.8) L Calcium Level 8.0 mg/dL (8.7-10.4) L Total Protein 6.5 g/dL (5.7-8.2) LFT Test 03/09/25 05:28 Alanine Aminotransferase (ALT) < 9 U/L (7-40) Alkaline Phosphatase 75 U/L (46-116) Aspartate Amino Transferase (AST) 11 U/L (13-40) L Total Bilirubin 0.4 mg/dL (0.2-1.0) Urinalysis Test 03/08/25 10:09 Urine Color Light-yellow (Yellow) Urine Clarity Clear (Clear) Urine pH 5.5 (5.0-9.0) Urine Specific [place] 1.015 (1.001-1.035) Urine Protein 1+ (Negative) H Urine Ketones Negative (Negative) Urine Blood 1+ /uL (Negative) H Urine Nitrite Negative (Negative) Urine Bilirubin Negative (Negative) Urine Urobilinogen Normal mg/dL (Negative) Urine Leukocyte Esterase Negative /uL (Negative) Urine RBC 1 /hpf (0 - 3) Urine Microscopic WBC 1 /HPF (0-3) Urine Squamous Epithelial Cells None seen /hpf (<5) Urine Bacteria None seen /hpf (None Seen) Urine Mucus Few (None Seen) Urine Glucose Normal mg/dL (Normal) Labs and/or images reviewed: Labs reviewed by me, Image(s) reviewed by me Assessment/Plan Assessment/Plan 03/09- patient is improving slowly, abdomen mildly tender. No history of BPH, okay to give more fluids. Start IV antibiotics none were given. Continue antiemetics. Trial clear liquid diet. Need to stay 1 more midnight. Not ready for discharge Acute gastroenteritis, infectious etiology likely Intravascular volume depletion Tachypnea, resolved Anemia, chronic, normocytic Monocytosis Hypokalemia, resolved CARLOS due to VMN Hypoalbuminemia, dilutional likely Hypocalcemia Plan: - IV antibiotics IV fluids P.r.n. analgesia Prn antiemetics Clear liquid diet trial Diet clear liquid diet DVT prophylaxis-Protonix DVT prophylaxis-Lovenox Med surge Full code Plan discussed with: Patient, Daughter My Orders Orders - VICKI MELÉNDEZ MD Procedure Category Date Status Time Ceftriaxone 1gm/50ml PHA 03/10/25 In Process D5w (Rocephin) 09:00 Metronidazole PHA 03/09/25 In Process 500mg/100ml (Flagyl 14:00 Date of Service: March 09, 2025 Billing Provider: VICKI MELÉNDEZ MD Common Visit Codes: [id number] INP/OBS CARE(HIGH) VICKI MELÉNDEZ MD March 09, 2025 13:01
[2025-03-09] MEDS: cefTRIAXone 1GM/50ML D5W 50 ML IV ONE (13:30)
[2025-03-09] MEDS: metroNIDAZOLE 500MG/100ML 100 ML IV SCH (13:36)
[2025-03-09] MEDS: LACTATED RINGER'S 1,000 ML IV ONE (15:42)
[2025-03-09 17:00] VITALS: BP 146/56; PULSE 64; RESP 18; TEMP 98.3; O2SAT 95
[2025-03-09 21:00] VITALS: BP 115/61; PULSE 61; RESP 17; TEMP 97.8; O2SAT 97
[2025-03-10] VITALS (8 sets, daily range): BP systolic 145–161; BP diastolic 51–61; PULSE 57–83; RESP 16–20; TEMP 97.3–98.5; O2SAT 93–98
[2025-03-10 06:49] LABS: Basophils # (auto) 0 10 ^3/uL (0-0.2); Basophils % (auto) 0.2 % (0.0-2.0); Eosinophils # (auto) 0.4 10 ^3/uL (0-0.8); Eosinophils % (auto) 6.1 % (0.0-7.0); Hematocrit 33.8 % (41.0-53.0); Hemoglobin 11.5 g/dL (13.5-17.5); Lymphocytes # (auto) 2.2 10 ^3/uL (0.4-5.4); Lymphocytes % (auto) 34.7 % (10.0-50.0); Mean Corpuscular Hemoglobin 31.4 pg (28.0-32.0); Mean Corpuscular Hgb Conc. 34.1 g/dL (32.0-36.0); Mean Corpuscular Volume 91.9 fL (80.0-100.0); Monocytes # (auto) 0.7 10 ^3/uL (0-1.3); Monocytes % (auto) 10.8 % (0.0-12.0); Neutrophils % (auto) 48.2 % (37.0-80.0); Platelet Count (auto) 274 10^3/uL (140-450); Red Blood Cells 3.68 10^6/uL (4.5-5.90); Red Cell Distribution Width 14.1 % (11.8-14.3); White Blood Cell 6.2 10^3/uL (4.4-10.8)
[2025-03-10 07:02] LABS: Alkaline Phosphatase 75 U/L (46-116); Anion Gap 6 (5-15); BUN/Creatinine Ratio 6.7 (10.0-20.0); Calcium 8.8 mg/dL (8.7-10.4); Carbon Dioxide 24 mmol/L (20-31); Glucose 86 mg/dL (74-106); Potassium 3.6 mmol/L (3.5-5.1); Sodium 140 mmol/L (136-145); Total Protein 6.4 g/dL (5.7-8.2)
[2025-03-10 07:03] LABS: Bilirubin, Total 0.4 mg/dL (0.2-1.0)
[2025-03-10 07:10] LABS: Alanine Aminotransferase < 9 U/L (7-40); Albumin 2.9 g/dL (3.2-4.8); Aspartate Aminotransferase 12 U/L (13-40); Blood Urea Nitrogen 8 mg/dL (9-23); Chloride 110 mmol/L (98-107)
[2025-03-10] MEDS: cefTRIAXone 1GM/50ML D5W 50 ML IV SCH (09:55)
[2025-03-10] MEDS: FERROUS SULFATE 325mg EC TAB PO SCH (09:55)
--- NOTE | 2025-03-10 18:33 | DVHPN2 ---
Subjective Feels better. No vomit with a liquid diet Reviewed: Care Plan, H&P, Labs, Medications, Previous Orders, Radiology Changes from previous H/P or p: No Changes General: Per HPI Objective Vitals Vital Signs Date Time Temp Pulse Resp B/P (MAP) Pulse Ox O2 Delivery O2 Flow Rate FiO2 03/10/25 17:00 97.8 62 16 155/60 (91) 94 97.8 03/10/25 08:00 Room Air* 0 21 Intake/Output Intake and Output 03/10/25 07:00 Intake Total 1915 ml Balance 1915 ml Intake Oral 1340 ml IV Total 575 ml # Voids 8 # Bowel Movements 1 General Appearance: Alert, Oriented X3, Cooperative, No acute distress HEENT: Atraumatic Lungs: Clear to auscultation Cardiovascular: Regular rate Abdomen: Normal bowel sounds, Soft, No tenderness Medications Current Medications Medications Dose Ordered Sig/Maurisio Route Start Time Stop Time Status Last Admin Dose Admin Sodium Chloride 10 ml Q8HR IV 03/08/25 22:00 03/10/25 14:00 10 ML Docusate Sodium 100 mg BIDPRN PRN PO 03/08/25 16:45 Acetaminophen 650 mg Q6HP PRN PO 03/08/25 16:45 Ondansetron HCl 4 mg Q4HP PRN IV 03/08/25 16:45 Enoxaparin Sodium 40 mg DAILY SC 03/09/25 10:00 03/10/25 09:57 40 MG Pantoprazole Sodium 40 mg DAILY IV 03/08/25 16:45 03/10/25 09:57 40 MG Atorvastatin Calcium 40 mg HS PO 03/08/25 22:00 03/09/25 20:56 40 MG Ferrous Sulfate 325 mg EOD PO 03/10/25 10:00 03/10/25 09:55 325 MG Metoprolol Tartrate 25 mg BID PO 03/08/25 22:00 03/10/25 09:56 25 MG Losartan Potassium 100 mg DAILY PO 03/09/25 10:00 03/10/25 09:57 100 MG Ceftriaxone Sodium 50 ml @ 100 mls/hr DAILY@09 IV 03/10/25 09:00 03/10/25 09:55 100 MLS/HR Metronidazole 100 ml @ 100 mls/hr Q8HR IV 03/09/25 14:00 03/10/25 05:07 100 MLS/HR Laboratory Results Laboratory Tests 03/10/25 06:01 Chemistry Test 03/10/25 06:01 Albumin 2.9 g/dL (3.2-4.8) L Calcium Level 8.8 mg/dL (8.7-10.4) Total Protein 6.4 g/dL (5.7-8.2) LFT Test 03/10/25 06:01 Alanine Aminotransferase (ALT) < 9 U/L (7-40) Alkaline Phosphatase 75 U/L (46-116) Aspartate Amino Transferase (AST) 12 U/L (13-40) L Total Bilirubin 0.4 mg/dL (0.2-1.0) Urinalysis Test 03/08/25 10:09 Urine Color Light-yellow (Yellow) Urine Clarity Clear (Clear) Urine pH 5.5 (5.0-9.0) Urine Specific [place] 1.015 (1.001-1.035) Urine Protein 1+ (Negative) H Urine Ketones Negative (Negative) Urine Blood 1+ /uL (Negative) H Urine Nitrite Negative (Negative) Urine Bilirubin Negative (Negative) Urine Urobilinogen Normal mg/dL (Negative) Urine Leukocyte Esterase Negative /uL (Negative) Urine RBC 1 /hpf (0 - 3) Urine Microscopic WBC 1 /HPF (0-3) Urine Squamous Epithelial Cells None seen /hpf (<5) Urine Bacteria None seen /hpf (None Seen) Urine Mucus Few (None Seen) Urine Glucose Normal mg/dL (Normal) Assessment/Plan Assessment/Plan Nausea and vomit with p.o. intake of unclear etiology Microhematuria Gastroenteritis Acute kidney injury and dehydration Baylee chronic kidney disease stage IIIA Anemia Protein deficient malnutrition Plan: Abdominal ultrasound. Advance diet. GI consultation if diet and tolerated. Possible home tomorrow if p.o. intake okay and then continue workup as outpatient Plan discussed with: Patient, Daughter My Orders Orders - SULEMA GASPAR MD Procedure Category Date Status Time Regular Diet DIET 03/10/25 Transmitted Dinner * Gi [facility] [place] [facility] CONS 03/10/25 Transmitted 18:20 Abdomen Complete US 03/10/25 Verified Sonogram 18:29 Urinalysis LAB 03/10/25 Verified 18:29 Complete Blood Count LAB 03/11/25 Verified 06:00 Comprehensive LAB 03/11/25 Verified Metabolic Panel 06:00 Date of Service: March 10, 2025 Billing Provider: LUCITA BUNDY MD Common Visit Codes: [id number] INP/OBS CARE(HIGH) SULEMA GASPAR MD March 10, 2025 18:33
--- NOTE | 2025-03-10 20:19 | DVH ---
INDICATION: Hematuria and vomiting TECHNIQUE: Multiple real-time sonographic images of the abdomen were obtained. COMPARISON: None FINDINGS: The liver is homogenous in echogenicity. The liver measures 10.9 cm. No intrahepatic bilia ry ductal dilatation is noted. A 9 x 6 x 8 mm anechoic lesion in the right lobe of the liver consiste nt with a simple cyst. The gallbladder wall measures 0.22 cm and is unremarkable. Sludge gallbladder no gallstones The co mmon duct measures 0.52 cm and is unremarkable. No pericholecystic fluid is noted. Negative sonograp hic Medel's sign The right kidney measures 8 cm. No hydronephrosis. . On the right there is a 1 cm anechoic lesion co nsistent with a small cortical cyst. There are nonobstructing calculi in the right kidney. The left kidney measures 8.5 cm. No hydronephrosis. A 5 mm anechoic cortical mass on the left consis tent with a small cyst. The spleen measures 6.1 cm, within normal limits. The echogenicity is within normal limits. The pancreas is visualized due to obscuration from bowel gas. Aorta measures 2.3 cm. The visualized portions of the IVC and aorta are grossly unremarkable. IMPRESSION: 1. Small 9 mm anechoic lesion in the liver. 2. 10.9 cm liver. 3. No calcified gallstones possible sludge in the gallbladder. Negative sonographic medel's sign. 4. Right kidney measures 8 cm left kidney measures 8.5 cm 5. Nonobstructing calculi and cysts in both kidneys. HS:Y
[2025-03-11 05:00] VITALS: BP 156/61; PULSE 63; RESP 18; TEMP 97.8; O2SAT 95
[2025-03-11 07:09] LABS: Basophils # (auto) 0 10 ^3/uL (0-0.2); Basophils % (auto) 0.2 % (0.0-2.0); Eosinophils # (auto) 0.4 10 ^3/uL (0-0.8); Eosinophils % (auto) 6.2 % (0.0-7.0); Hematocrit 35.1 % (41.0-53.0); Hemoglobin 11.7 g/dL (13.5-17.5); Lymphocytes # (auto) 2.4 10 ^3/uL (0.4-5.4); Mean Corpuscular Hemoglobin 31.5 pg (28.0-32.0); Mean Corpuscular Volume 94.8 fL (80.0-100.0); Monocytes # (auto) 0.7 10 ^3/uL (0-1.3); Neutrophils # (auto) 3.2 10 ^3/uL (1.6-8.6); Neutrophils % (auto) 47.6 % (37.0-80.0); Nucleated Red Blood Cells % 0.2 %; White Blood Cell 6.8 10^3/uL (4.4-10.8)
[2025-03-11 07:10] LABS: Mean Corpuscular Hgb Conc. 33.3 g/dL (32.0-36.0); Platelet Count (auto) 288 10^3/uL (140-450); Red Cell Distribution Width 14.5 % (11.8-14.3)
[2025-03-11 07:23] LABS: Alkaline Phosphatase 78 U/L (46-116); Anion Gap 8 (5-15); Aspartate Aminotransferase 17 U/L (13-40); BUN/Creatinine Ratio 5.3 (10.0-20.0); Carbon Dioxide 23 mmol/L (20-31); Glucose 91 mg/dL (74-106); Potassium 3.7 mmol/L (3.5-5.1); Sodium 138 mmol/L (136-145); Total Protein 6.4 g/dL (5.7-8.2)
[2025-03-11 07:24] LABS: Alanine Aminotransferase < 9 U/L (7-40); Albumin 2.8 g/dL (3.2-4.8); Bilirubin, Total 0.3 mg/dL (0.2-1.0); Blood Urea Nitrogen 7 mg/dL (9-23); Chloride 107 mmol/L (98-107)
[2025-03-11 08:00] VITALS: PULSE 86; RESP 18; O2SAT 98
[2025-03-11 09:00] VITALS: BP 140/62; PULSE 63; RESP 18; TEMP 97.6; O2SAT 98
[2025-03-11 10:34] LABS: Urine Bacteria FEW /hpf (None Seen); Urine Blood Negative /uL (Negative); Urine Clarity Clear (Clear); Urine Color Light-Yellow (Yellow); Urine Protein, UAD TRACE (Negative); Urine Specific Gravity 1.008 (1.001-1.035); Urine Squamous Epithelial Cell None Seen /hpf (<5); Urine Urobilinogen Normal (Negative); Urine WBC < 1 /HPF (0-3); Urine pH 5.5 (5.0-9.0)
[2025-03-11 13:00] VITALS: BP 150/58; PULSE 61; RESP 18; TEMP 97.5; O2SAT 96
--- NOTE | 2025-03-11 14:31 | DVHDS2 ---
Discharge Summary Date of Admission March 08, 2025 at 16:43 Date of Discharge: March 11, 2025 Admitting Diagnosis Nausea and vomit and diarrhea Labs/Diagnostic Data: Laboratory Results Test 03/11/25 10:20 03/11/25 06:12 03/08/25 10:28 03/08/25 10:09 Urine Color Light-yellow (Yellow) Urine Clarity Clear (Clear) Urine pH 5.5 (5.0-9.0) Urine Specific [place] 1.008 (1.001-1.035) Urine Protein Trace (Negative) Urine Ketones Negative (Negative) Urine Blood Negative /uL (Negative) Urine Nitrite Negative (Negative) Urine Bilirubin Negative (Negative) Urine Urobilinogen Normal mg/dL (Negative) Urine Leukocyte Esterase Negative /uL (Negative) Urine RBC <1 /hpf (0 - 3) Urine Microscopic WBC < 1 /HPF (0-3) Urine Squamous Epithelial Cells None seen /hpf (<5) Urine Bacteria Few /hpf (None Seen) Urine Glucose Normal mg/dL (Normal) White Blood Count 6.8 10^3/uL (4.4-10.8) Red Blood Count 3.70 10^6/uL (4.5-5.90) Hemoglobin 11.7 g/dL (13.5-17.5) Hematocrit 35.1 % (41.0-53.0) Mean Corpuscular Volume 94.8 fL (80.0-100.0) Mean Corpuscular Hemoglobin 31.5 pg (28.0-32.0) Mean Corpuscular Hemoglobin Concent 33.3 g/dL (32.0-36.0) Red Cell Distribution Width 14.5 % (11.8-14.3) Platelet Count 288 10^3/uL (140-450) Mean Platelet Volume 7.7 fL (6.9-10.8) Neutrophils (%) (Auto) 47.6 % (37.0-80.0) Lymphocytes (%) (Auto) 35.0 % (10.0-50.0) Monocytes (%) (Auto) 11.0 % (0.0-12.0) Eosinophils (%) (Auto) 6.2 % (0.0-7.0) Basophils (%) (Auto) 0.2 % (0.0-2.0) Neutrophils # (Auto) 3.2 10 ^3/uL (1.6-8.6) Lymphocytes # (Auto) 2.4 10 ^3/uL (0.4-5.4) Monocytes # (Auto) 0.7 10 ^3/uL (0-1.3) Eosinophils # (Auto) 0.4 10 ^3/uL (0-0.8) Basophils # (Auto) 0 10 ^3/uL (0-0.2) Nucleated Red Blood Cells 0.2 % Sodium Level 138 mmol/L (136-145) Potassium Level 3.7 mmol/L (3.5-5.1) Chloride Level 107 mmol/L (98-107) Carbon Dioxide Level 23 mmol/L (20-31) Anion Gap 8 (5-15) Blood Urea Nitrogen 7 mg/dL (9-23) Creatinine 1.32 mg/dL (0.700-1.30) Glomerular Filtration Rate Calc 53 mL/min (>90) BUN/Creatinine Ratio 5.3 (10.0-20.0) Serum Glucose 91 mg/dL (74-106) Calcium Level 9.0 mg/dL (8.7-10.4) Total Bilirubin 0.3 mg/dL (0.2-1.0) Aspartate Amino Transferase (AST) 17 U/L (13-40) Alanine Aminotransferase (ALT) < 9 U/L (7-40) Alkaline Phosphatase 78 U/L (46-116) Total Protein 6.4 g/dL (5.7-8.2) Albumin 2.8 g/dL (3.2-4.8) Lipase 38 U/L (12-53) Urine Mucus Few (None Seen) Other Laboratory Tests 03/11/25 06:12 Brief Hx & Hospital Course: 84-year-old gentleman admitted to the hospital because of nausea and vomit and diarrhea. Patient was given IV fluids and antibiotic. His condition improved. He was still having some nausea until yesterday evening. His diet was advanced and he tolerated well and he is being discharged home today in stable condition to follow up with PCP in with GI as outpatient along with Nephrology. Abdominal CT showed no acute intra-abdominal abnormality. Showed some scattered atherosclerotic calcification. Some possible renal cysts. And some possible hepatic cyst. Ultrasound showed nephrolithiasis in both kidneys without obstruction. There were also cysts in both kidneys. And there was a hepatic cyst as well. Consults/Reason for consult GI consultation/no inpatient interventions and follow up as outpatient per the GI artist consultant Condition at Discharge: Good Final Diagnosis/Problems List Gastroenteritis Nephrolithiasis Bilateral renal cysts Hepatic cysts Anemia Chronic kidney disease stage 3 a Discharge Disposition: Home Discharge Instruct/Medications Diet: Regular Activity: No Restrictions, As Tolerated Follow Up/Referral: PCP within one week GI within two weeks Urology within two weeks Medications: No new medications. Resume previous home medication 35 Discharge Statement: "Patient was advised to return to the ER or call 911 if any headaches, dizziness, shortness of breath, chest pain, abdominal pain, bleeding, fevers, or worsening of medical condition. Patient was counseled about treatment plan, medications, possible side effects, patientverbalized understanding. All questions were answered to the best of my ability. This discharge took greater then 30 minutes in planning, reviewing documentation, counseling the patient, and discussing with other team members." ASSESSMENT ASSESSMENT Assessment Date of Service: March 11, 2025 Billing Provider: SULEMA GASPAR MD Common Visit Codes: 89775-GYC/OBS DISCH DAY >30min SULEMA GASPAR MD March 11, 2025 14:31
[2025-03-11 16:32] VITALS: BP 138/58; PULSE 60; RESP 18; TEMP 36.4; O2SAT 98
--- NOTE | 2025-03-11 23:25 | DVHINCON2 ---
Date of service: March 11, [address] Navarrete Reason for Consultation N/V History of Present Illness 84-year-old male presents with a chief complaints of nausea, vomiting, and diarrhea. Patient's daughter mentions that patient ate soup prior to onset of symptoms. Patient denies any abdomen pain at this time. Patient is not currently vomiting. Patient states that the symptoms are made worse after eating . Past Medical History PAST MEDICAL HISTORY: COPD, HTN Previous history of stomach cancer Past Surgical History Surgical History: Pacemaker Family History: Cerebrovascular accident (CVA) G8 MOTHER G8 SISTER FH: cancer G8 SISTER Hypertension G8 MOTHER Allergies: Coded Allergies: NO KNOWN ALLERGIES (Unverified , 12/13/13) Home Meds Active Scripts Nirmatrelvir/Ritonavir (PAXLOVID 20 x 150 MG & 10 x 100MG) 1 Tab Tab, 1 TAB PO BID for 5 Days, #10 TAB Prov:OLIVIA JACKSON PAC 06/10/24 Ferrous Sulfate (FERROUS SULFATE) 325 Mg Tb, 325 MG PO EOD for 30 Days, #30 TAB Prov:RAY GLASS MD 06/03/24 Saline (Saline Nasal [place]) 0.65 % Spr, 0.65 % NA UD for 30 Days, #1 SPRAY 0 Refills Prov:MARGY QUEVEDO NP 04/10/24 Naphazoline W/ Pheniramine (Naphcon-A 0.025-0.3 %) 1 Matilde Matilde, 1-2 DROP OP QIDPRN, #15 ML Prov:OLIVIA JACKSON PAC 02/14/24 Metoprolol Tartrate (Metoprolol Tartrate) 25 Mg Tab, 1 TAB PO BID, #120 TAB 1 Refill Prov:LUANA JACKSON MD 12/28/19 Atorvastatin Calcium (ATORVASTATIN CALCIUM) 20 Mg Tab, 40 MG PO HS for 90 Days, #90 TAB Prov:LUANA JACKSON MD 12/28/19 Reported Medications Cholecalciferol (VITAMIN D3) 2,000 Unit Tab, 2000 UNIT OR, TAB 05/28/24 Losartan Potassium (Losartan Potassium) 100 Mg Tab, 100 MG PO DAILY for 30 Days, MG 05/28/24 Cholecalciferol (Vitamin D3) 1,000 Unit Cap, 1000 UNIT PO DAILY, CAP 12/25/19 Losartan Potassium (Losartan Potassium) 100 Mg Tab, 100 MG PO DAILY, TAB 12/25/19 Review of Systems Operative Report DATE OF OPERATION: 06/02/24 PROCEDURE: Colonoscopy with snare polypectomy. PREOPERATIVE INDICATION: The patient is a 83 -year-old male undergoing colonoscopy for anemia and heme-positive stools POSTOPERATIVE DIAGNOSES: 1. Patient had a 1.5 cm polyp in the proximal descending colon in the hip splenic flexure that was removed by snare polypectomy and rectocele 2 mm polyp was removed via cold biopsy forceps 2. Patient had a 5 mm benign-appearing sigmoid polyp that was seen and removed by snare polypectomy but the specimen could not be obtained 3. 2+ slightly congested internal hemorrhoids Operative Report DATE OF OPERATION: 06/02/24 PROCEDURE: Upper Endoscopy with biopsy. PREOPERATIVE INDICATION: The patient is a 83 -year-old male undergoing endoscopy for anemia and heme-positive stools POSTOPERATIVE DIAGNOSES: 1. Patient had a pre-pyloric antral circumferential ulcerated masslike area from which biopsies were obtained Vital Signs Vital Signs Date Time Temp Pulse Resp B/P (MAP) Pulse Ox O2 Delivery O2 Flow Rate FiO2 03/11/25 16:32 36.4 60 18 98 03/11/25 13:00 150/58 (88) 03/11/25 08:00 Room Air* 0 21 Physical Exam General Appearance: Alert, Oriented X3, Cooperative, No acute distress HEENT: Atraumatic Lungs: Clear to auscultation Cardiovascular: Regular rate Abdomen: Normal bowel sounds, Soft, No tenderness Labs/Diagnostic Data Labs Test 03/11/25 10:20 03/11/25 06:12 03/08/25 10:28 03/08/25 10:09 Range/Units Urine Color Light-yellow Yellow Urine Clarity Clear Clear Urine pH 5.5 5.0-9.0 Urine Specific [place] 1.008 1.001-1.035 Urine Protein Trace H Negative Urine Ketones Negative Negative Urine Blood Negative Negative /uL Urine Nitrite Negative Negative Urine Bilirubin Negative Negative Urine Urobilinogen Normal Negative mg/dL Urine Leukocyte Esterase Negative Negative /uL Urine RBC <1 0 - 3 /hpf Urine Microscopic WBC < 1 0-3 /HPF Urine Squamous Epithelial Cells None seen <5 /hpf Urine Bacteria Few H None Seen /hpf Urine Glucose Normal Normal mg/dL White Blood Count 6.8 4.4-10.8 10^3/uL Red Blood Count 3.70 L 4.5-5.90 10^6/uL Hemoglobin 11.7 L 13.5-17.5 g/dL Hematocrit 35.1 L 41.0-53.0 % Mean Corpuscular Volume 94.8 80.0-100.0 fL Mean Corpuscular Hemoglobin 31.5 28.0-32.0 pg Mean Corpuscular Hemoglobin Concent 33.3 32.0-36.0 g/dL Red Cell Distribution Width 14.5 H 11.8-14.3 % Platelet Count 288 140-450 10^3/uL Mean Platelet Volume 7.7 6.9-10.8 fL Neutrophils (%) (Auto) 47.6 37.0-80.0 % Lymphocytes (%) (Auto) 35.0 10.0-50.0 % Monocytes (%) (Auto) 11.0 0.0-12.0 % Eosinophils (%) (Auto) 6.2 0.0-7.0 % Basophils (%) (Auto) 0.2 0.0-2.0 % Neutrophils # (Auto) 3.2 1.6-8.6 10 ^3/uL Lymphocytes # (Auto) 2.4 0.4-5.4 10 ^3/uL Monocytes # (Auto) 0.7 0-1.3 10 ^3/uL Eosinophils # (Auto) 0.4 0-0.8 10 ^3/uL Basophils # (Auto) 0 0-0.2 10 ^3/uL Nucleated Red Blood Cells 0.2 % Sodium Level 138 136-145 mmol/L Potassium Level 3.7 3.5-5.1 mmol/L Chloride Level 107 98-107 mmol/L Carbon Dioxide Level 23 20-31 mmol/L Anion Gap 8 5-15 Blood Urea Nitrogen 7 L 9-23 mg/dL Creatinine 1.32 H 0.700-1.30 mg/dL Glomerular Filtration Rate Calc 53 >90 mL/min BUN/Creatinine Ratio 5.3 L 10.0-20.0 Serum Glucose 91 74-106 mg/dL Calcium Level 9.0 8.7-10.4 mg/dL Total Bilirubin 0.3 0.2-1.0 mg/dL Aspartate Amino Transferase (AST) 17 13-40 U/L Alanine Aminotransferase (ALT) < 9 7-40 U/L Alkaline Phosphatase 78 46-116 U/L Total Protein 6.4 5.7-8.2 g/dL Albumin 2.8 L 3.2-4.8 g/dL Lipase 38 12-53 U/L Urine Mucus Few None Seen CT SCAN ABD PELVIS IMPRESSION: No acute intraabdominal abnormality. Problems(with codes): (1) Intractable vomiting (2) Diarrhea (3) Asymptomatic hypertension (4) Severe anemia (5) Nasal congestion (6) Gastric mass Plan/Recommendation Plan Patient is feeling better and there was no nausea vomiting His diet is being advanced Discharge planning is in progress Patient was advised to follow up in my office in 1-2 weeks I need to review his previous endoscopy report including the suspected ulcer possible mass and check pathology Patient at that time of supposed to follow up in my office but it is not clear if there was any consultation made with me or with a another fusion juncture grinder I will follow this patient with you, once again thank you for allowing me to participate in the care of this patient Plan discussed with: Patient, Daughter MECHE CHOWDARY MD March 11, 2025 23:25
== END 2025-03-11 17:25 | disposition home or self-care (01) | DRG 391 ==
LOC: ER 09:55 → OVERFLOW 16:43 → WEST WING 17:58
PROVIDERS: ADMIT Student in an Organized Health Care Education/Training Program; ATTEND Student in an Organized Health Care Education/Training Program
DX: A09 Infectious gastroenteritis and colitis, unspecified (principal); N17.0 Acute kidney failure with tubular necrosis; Z68.1 Body mass index [BMI] 19.9 or less, adult; E44.1 Mild protein-calorie malnutrition; J44.9 Chronic obstructive pulmonary disease, unspecified; D64.9 Anemia, unspecified; D72.821 Monocytosis (symptomatic); E87.6 Hypokalemia; E83.51 Hypocalcemia; E86.0 Dehydration; E88.09 Other disorders of plasma-protein metabolism, not elsewhere classified; I12.9 Hypertensive chronic kidney disease with stage 1 through stage 4 chronic kidney disease, or unspecified chronic kidney disease; N18.31 Chronic kidney disease, stage 3a; N28.1 Cyst of kidney, acquired; N20.0 Calculus of kidney; K76.89 Other specified diseases of liver; Z79.2 Long term (current) use of antibiotics; Z79.899 Other long term (current) drug therapy; Z87.891 Personal history of nicotine dependence; Z82.3 Family history of stroke; Z82.49 Family history of ischemic heart disease and other diseases of the circulatory system; Z85.028 Personal history of other malignant neoplasm of stomach
CPT/HCPCS: 36415; 74177; 76700; 80053; 81001; 83690; 85025; 96361; 96374; 96375; G0378; J2470; J3490

== ENCOUNTER 2025-09-23 10:28 | Inpatient (IN) | payer MEDICARE, MEDICAID ==
[~2025-09-23] VITALS: Ht 162.6 cm; Wt 52.8 kg
--- NOTE | 2025-09-23 10:55 | ED.PDOC ---
GI ASSESSMENT HPI Comments 84 y/o M, accompanied by family, with PMHx of HTN and COPD presents to the ED for CC of nausea/vomiting. Family reports, patient has been experiencing symptoms of intermittent nausea/vomiting [id number]. Per family, patient relays symptoms to have worsened as of last night (09/22/25) having approximately x6-7 emesis episodes. Patient denies abdominal pain, diarrhea, fatigue, weakness or fever. No other symptoms or modifying factors are present at this time. Chief Complaint: Nausea/Vomiting Time Seen by MD: 10:55 Primary Care Provider: JEISON LATIF Reviewed Notes: Nurses Notes, Medications, Allergies Allergies: Coded Allergies: NO KNOWN ALLERGIES (Unverified , 12/13/13) Home Meds Active Scripts Nirmatrelvir/Ritonavir (PAXLOVID 20 x 150 MG & 10 x 100MG) 1 Tab Tab, 1 TAB PO BID for 5 Days, #10 TAB Prov:OLIVIA JACKSON PAC 06/10/24 Ferrous Sulfate (FERROUS SULFATE) 325 Mg Tb, 325 MG PO EOD for 30 Days, #30 TAB Prov:RAY GLASS MD 06/03/24 Saline (Saline Nasal [place]) 0.65 % Spr, 0.65 % NA UD for 30 Days, #1 SPRAY 0 Refills Prov:MARGY QUEVEDO NP 04/10/24 Naphazoline W/ Pheniramine (Naphcon-A 0.025-0.3 %) 1 Matilde Matilde, 1-2 DROP OP QID PRN, #15 ML Prov:OLIVIA JACKSON 02/14/24 Metoprolol Tartrate (Metoprolol Tartrate) 25 Mg Tab, 1 TAB PO BID, #120 TAB 1 Refill Prov:LUANA JACKSON MD 12/28/19 Atorvastatin Calcium (ATORVASTATIN CALCIUM) 20 Mg Tab, 40 MG PO HS for 90 Days, #90 TAB Prov:LUANA JACKSON MD 12/28/19 Reported Medications Cholecalciferol (VITAMIN D3) 2,000 Unit Tab, 2000 UNIT OR, TAB 05/28/24 Losartan Potassium (Losartan Potassium) 100 Mg Tab, 100 MG PO DAILY for 30 Days, MG 05/28/24 Cholecalciferol (Vitamin D3) 1,000 Unit Cap, 1000 UNIT PO DAILY, CAP 12/25/19 Losartan Potassium (Losartan Potassium) 100 Mg Tab, 100 MG PO DAILY, TAB 12/25/19 Information Source: Patient Mode of Arrival: Ambulatory Timing: Weeks Duration: Intermittent Prehospital treatment: None Quality: None Vomitus: Watery Stool: Normal Severity: Moderate Recent: None Recent Hx of: None Pain Location: None Associated sign and symptoms: Nausea, Vomiting Past Medical History PAST MEDICAL HISTORY: COPD, HTN Surgical History: Pacemaker Family History Family History: Reviewed,noncontributory to illness Social History Smoker: Quit Greater Than 1 Year, Cigarettes Alcohol: Denies ETOH Use Drugs: Denies Drug Use Lives In: Home Constitutional: denies: chills, diaphoresis, fatigue, fever, malaise, sweats, weakness, others EENTM: denies: blurred vision, double vision, ear bleeding, ear discharge, ear drainage, ear pain, ear ringing, eye pain, eye redness, hearing loss, mouth pain, mouth swelling, nasal discharge, nose bleeding, nose congestion, nose pain, photophobia, tearing, throat pain, throat swelling, voice changes, others Respiratory: denies: cough, hemoptysis, orthopnea, SOB at rest, shortness of breath, SOB with excertion, stridor, wheezing, others Cardiovascular: denies: chest pain, dizzy spells, diaphoresis, Dyspnea on exertion, edema, irregular heart beat, left arm pain, lightheadedness, palpitati ons, PND, syncope, others Gastrointestinal: denies: abdomen distended, abdominal pain, blood streaked bowels, constipated, diarrhea, dysphagia, difficulty swallowing, hematemesis, melena, nausea, poor appetite, poor fluid intake, rectal bleeding, rectal pain, vomiting, others Genitourinary: denies: burning, dysuria, flank pain, frequency, hematuria, incontinence, penile discharge, penile sore, pain, testicle pain, testicle swelling, urgency, others Neurological: denies: dizziness, fainting, headache, left sided numbness, left sided weakness, numbness, paresthesia, pre-existing deficit, right sided numbness, right sided weakness, seizure, speech problems, tingling, tremors, weakness, others Musculoskeletal: denies: back pain, gout, joint pain, joint swelling, muscle pain, muscle stiffness, neck pain, others Integumetry: denies: bruises, change in color, change in hair/nails, dryness, laceration, lesions, lumps, rash, wounds, others Allergic/Immunocompromised: denies: Difficulty Healing, Frequent Infections, Hives, Itching, others Hematologic/Lymphatic: denies: anemia, blood clots, easy bleeding, easy bruising, swollen glands, others Endocrine: denies: excessive hunger, excessive sweating, excessive thirst, excessive urination, flushing, intolerance to cold, intolerance to heat, unexplained weight gain, unexplained weight loss, others Psychiatric: denies: anxiety, bipolar disorder, depression, hopeless, panic disorder, schizophrenia, sleepless, suicidal, others All Other Systems: Reviewed and Negative Physical Exam General Appearance: No Apparent Distress, Normal, Other (chronically ill appearing) HEENT: Normal ENT Inspection, Pharynx Normal Neck: Full Range of Motion, Non-Tender, Normal, Normal Inspection Respiratory: Chest Non-Tender, Lungs Clear, No Accessory Muscle Use, No Respiratory Distress, Normal Breath Sounds Cardiovascular: No Edema, No Murmur, No Gallop, Normal Peripheral Pulses, Regular Rate/Rhythm Breast Exam: Deferred Gastrointestinal: No Organomegaly, Non Tender, No Pulsatile Mass, Normal Bowel Sounds, Soft Genitalia: Deferred Pelvic: Deferred Rectal: Deferred Extremities: No calf tenderness, Normal capillary refill, Normal inspection, Normal range of motion, Non-tender, No pedal edema Musculoskeletal : Apperance: Normal Neurologic: Alert, staff nuclear medicine technologist II-XII nml as Tested, No Motor Deficits, Normal Affect, Normal Mood, No Sensory Deficits Cerebellar Function: Normal Reflexes: Normal Skin: Dry, Normal Color, Warm Lymphatic: No Adenopathy Was a procedure done? Was a procedure done?: No GI differential Dx Differential Diagnosis: Gastritis/PUD, Gastroenteritis, Electrolyte Imbalance, Food Poisoning, Bacterial, Viral X-Ray, Labs, Meds, VS Vital Signs Date Time Temp Pulse Resp B/P (MAP) Pulse Ox O2 Delivery O2 Flow Rate FiO2 09/23/25 10:29 97.2 80 15 134/57 98 97.2 Lab Test 09/23/25 11:37 09/23/25 11:18 Range/Units White Blood Count 9.3 4.4-10.8 10^3/uL Red Blood Count 3.17 L 4.5-5.90 10^6/uL Hemoglobin 8.4 L 13.5-17.5 g/dL Hematocrit 26.9 L 41.0-53.0 % Mean Corpuscular Volume 84.9 80.0-100.0 fL Mean Corpuscular Hemoglobin 26.7 L 28.0-32.0 pg Mean Corpuscular Hemoglobin Concent 31.4 L 32.0-36.0 g/dL Red Cell Distribution Width 16.4 H 11.8-14.3 % Platelet Count 448 140-450 10^3/uL Mean Platelet Volume 7.1 6.9-10.8 fL Neutrophils (%) (Auto) 55.3 37.0-80.0 % Lymphocytes (%) (Auto) 28.5 10.0-50.0 % Monocytes (%) (Auto) 11.9 0.0-12.0 % Eosinophils (%) (Auto) 3.6 0.0-7.0 % Basophils (%) (Auto) 0.7 0.0-2.0 % Neutrophils # (Auto) 5.1 1.6-8.6 10 ^3/uL Lymphocytes # (Auto) 2.7 0.4-5.4 10 ^3/uL Monocytes # (Auto) 1.1 0-1.3 10 ^3/uL Eosinophils # (Auto) 0.3 0-0.8 10 ^3/uL Basophils # (Auto) 0.1 0-0.2 10 ^3/uL Nucleated Red Blood Cells 0.0 % Sodium Level 140 136-145 mmol/L Potassium Level 4.2 3.5-5.1 mmol/L Chloride Level 108 H 98-107 mmol/L Carbon Dioxide Level 22 20-31 mmol/L Anion Gap 10 5-15 Blood Urea Nitrogen 14 9-23 mg/dL Creatinine 1.23 0.700-1.30 mg/dL Glomerular Filtration Rate Calc 57 >90 mL/min BUN/Creatinine Ratio 11.4 10.0-20.0 Serum Glucose 116 H 74-106 mg/dL Calcium Level 8.4 L 8.7-10.4 mg/dL Total Bilirubin 0.3 0.2-1.0 mg/dL Aspartate Amino Transferase (AST) 18 13-40 U/L Alanine Aminotransferase (ALT) 12 7-40 U/L Alkaline Phosphatase 121 H 46-116 U/L Troponin I High Sensitivity 618 *H </=54 ng/L Total Protein 8.1 5.7-8.2 g/dL Albumin 3.4 3.2-4.8 g/dL Lipase 40 12-53 U/L Urine Color Light-yellow Yellow Urine Clarity Clear Clear Urine pH 6.5 5.0-9.0 Urine Specific [place] 1.022 1.001-1.035 Urine Protein Negative Negative Urine Ketones Negative Negative Urine Blood Negative Negative /uL Urine Nitrite Negative Negative Urine Bilirubin Negative Negative Urine Urobilinogen Normal Negative mg/dL Urine Leukocyte Esterase Negative Negative /uL Urine RBC 2 0 - 3 /hpf Urine Microscopic WBC 1 0-3 /HPF Urine Squamous Epithelial Cells Few <5 /hpf Urine Bacteria None seen None Seen /hpf Urine Glucose Normal Normal mg/dL [place] [id number] Ph: [phone] DIAGNOSTIC IMAGING Diagnostic Imaging Report : [id number] Signed PATIENT: PAIGE ALAS ACCT: [id number] UNIT: [id number] : 1940 LOC: ER ROOM / BED: / AGE / SEX: 84 / M ADM STATUS: REG ER SERVICE [id number] ORDERING PHYSICIAN: LESLY ANTONY MD PROCEDURE(s): CXRP - CHEST PORTABLE REASON: epigastric pain ORDER NUMBER(s): [id number], ACCESSION NUMBER(s): [id number] CHEST RADIOGRAPH Indication: epigastric pain Technique: Single frontal view of the chest was obtained COMPARISON: XY CHEST PORTABLE on DOS: 06/09/24, XY CHEST PORTABLE on DOS: 05/29/24, CT ANGIO CHEST CONTRAST on DOS: 04/04/22, CHEST TWO VIEWS ROUTINE on DOS: 04/04/22, CXR2 on DOS: 04/04/22 FINDINGS: Lines and Tubes: Left chest wall pacemaker. Lungs: Lungs are hyperinflated possibly representing underlying COPD. No focal airspace consolidation. Pleura: No effusion. No pneumothorax. Cardiomediastinal contours: Unremarkable Bones: Unremarkable IMPRESSION: No acute cardiopulmonary disease. ATED BY: TALON FAUST MD DICTATED DATE/TIME: 09/23/25 1153 SIGNED BY: TALON FAUST MD SIGNED DATE/TIME: 09/23/25 1153 CC: Time of 1ST Reevaluation: 11:25 Reevaluation 1ST: Unchanged Patient Education/Counseling: Diagnosis, Treatment Family Education/Counseling: Diagnosis, Treatment SEPSIS Sepsis Screen Date sepsis recognized/suspect: Sep 23, 2025 Time Sepsis recognized/suspect: 1031 Recent Procedure: No On Antibiotic Therapy: No Respiratory Rate >20: No Heart Rate >90: No Temp<36 C (96.8 F) or >38.3 C: No SBP <90 or MAP <65 mmHG: No New Acute Mental Status Change: No Is the patient on CPAP, BIPAP,: No Physician Orders Chest Portable (09/23/25 11:18) Troponin-I Hs (09/23/25 12:18) Troponin-I Hs (09/23/25 14:18) Vital Signs Date Time Temp Pulse Resp B/P (MAP) Pulse Ox O2 Delivery O2 Flow Rate FiO2 09/23/25 10:29 97.2 80 15 134/57 98 97.2 Laboratory Tests Test 09/23/25 11:37 White Blood Count 9.3 10^3/uL (4.4-10.8) Departure 1 Departure Time of Disposition: 12:23 (Patient presented with the abdominal pain and nausea and vomiting however patient found to have an elevated troponin. Patient reports he does have some intermittent chest pressure. We will admit patient for further workup and expert consultation) Impression: Primary Impression: NSTEMI (non-ST elevated myocardial infarction) Additional Impressions: Elevated troponin Epigastric pain Nausea and vomiting Disposition: ADMITTED INPATIENT Admit to: Tele Condition: Guarded Critical Care Note Critical Care Time?: Yes Critical care comment: NSTEMI Authorized and Performed by: Lesly Antony MD Total critical care time: Approximately 39 minutes Due to a high probability of clinically significant, life threatening deterioration, the patient required my highest level of preparedness to intervene emergently and I personally spent this critical care time directly and personally managing the patient. This critical care time included obtaining a history; examining the patient; pulse oximetry; ordering and review of studies; arranging urgent treatment with development of a management plan; evaluation of patient's response to treatment; frequent reassessment; and, discussions with other providers. This critical care time was performed to assess and manage the high probability of imminent, life-threatening deterioration that could result in multi-organ failure. It was exclusive of separately billable procedures and treating other patients and teaching time. Please see my other sections and the rest of the note for further information on patient assessment and treatment. Stability Stability form required: No Heart Score Heart Score: Heart Score Response (Comments) Value History N/A 0 EKG N/A 0 Age N/A 0 Risk Factors N/A 0 Troponin N/A 0 Total 0 I personally scribed for LESLY ANTONY MD ([email or web address]) on 09/23/25 at 10:55. Electronically submitted by Darlene Winter ([employer]). I personally scribed for LESLY ANTONY MD ([email or web address]) on 09/23/25 at 11:44. Electronically submitted by Darlene Winter ([employer]). I personally scribed for LESLY ANTONY MD ([email or web address]) on 09/23/25 at 12:07. Electronically submitted by Darlene Winter ([employer]). LESLY ANTONY MD Sep 23, 2025 10:55
--- NOTE | 2025-09-23 11:55 | DVH ---
CHEST RADIOGRAPH Indication: epigastric pain Technique: Single frontal view of the chest was obtained COMPARISON: XY CHEST PORTABLE on DOS: 06/09/24, XY CHEST PORTABLE on DOS: 05/29/24, CT ANGIO CHEST CONTRAST on DOS: 04/04/22, CHEST TWO VIEWS ROUTINE on DOS: 04/04/22, CXR2 on DOS: 04/04/22 FINDINGS: Lines and Tubes: Left chest wall pacemaker. Lungs: Lungs are hyperinflated possibly representing underlying COPD. No focal airspace consolidation. Pleura: No effusion. No pneumothorax. Cardiomediastinal contours: Unremarkable Bones: Unremarkable IMPRESSION: No acute cardiopulmonary disease.
[2025-09-23 11:56] LABS: Hemoglobin 8.4 g/dL (13.5-17.5); Nucleated Red Blood Cells % 0.0 %
[2025-09-23 11:58] LABS: Hematocrit 26.9 % (41.0-53.0); Mean Corpuscular Hemoglobin 26.7 pg (28.0-32.0); Mean Corpuscular Volume 84.9 fL (80.0-100.0)
[2025-09-23 12:00] LABS: Urine Protein, UAD Negative (Negative)
[2025-09-23 12:13] LABS: Alanine Aminotransferase 12 U/L (7-40); Albumin 3.4 g/dL (3.2-4.8); Anion Gap 10 (5-15); BUN/Creatinine Ratio 11.4 (10.0-20.0); Blood Urea Nitrogen 14 mg/dL (9-23); Carbon Dioxide 22 mmol/L (20-31); Lipase 40 U/L (12-53); Potassium 4.2 mmol/L (3.5-5.1); Sodium 140 mmol/L (136-145); Total Protein 8.1 g/dL (5.7-8.2)
[2025-09-23 12:14] LABS: Alkaline Phosphatase 121 U/L (46-116); Bilirubin, Total 0.3 mg/dL (0.2-1.0); Calcium 8.4 mg/dL (8.7-10.4); Chloride 108 mmol/L (98-107); Glucose 116 mg/dL (74-106)
[2025-09-23] MEDS ORDERED: ONDANSETRON HCL 4 MG/2 ML VIAL IV PRN (13:15)
[2025-09-23] MEDS ORDERED: MORPHINE SULFATE INJ 2 MG/ml SYRG IV PRN (13:15)
[2025-09-23] MEDS ORDERED: ACETAMINOPHEN 325 MG TAB PO PRN (13:15)
[2025-09-23 13:25] VITALS: PULSE 64; RESP 12; O2SAT 98
[2025-09-23] MEDS: SODIUM CHLORIDE 0.9% 1,000 ML IV SCH (13:25)
--- NOTE | 2025-09-23 13:33 | DVHHP2 ---
History of Present Illness History of Present Illness This is a Latvian-speaking patient and the daughter serves as vendor management specialist. He came because he has been having persistent nausea with repeated vomiting today, associated with decreased appetite and mild epigastric discomfort. He denies chest pain, shortness of breath, palpitations, syncope, diarrhea, or blood in the stool. No hematemesis or melena. He reports feeling weak but remained oriented and interactive during evaluation. Vitals were stable on arrival. Labs showed anemia with Hgb 8.4, mild elevation in alkaline phosphatase, normal electrolytes, and glucose 116. His CT abdomen showed no obstruction, no acute pathology, and findings compatible with gastritis or constipation. Chest X-ray showed hyperinflated lungs consistent with COPD but no acute disease. Troponins were elevated but downtrending ([phone] - [phone]) without any chest discomfort. EKG showed no ischemic changes. He continues to feel nauseated at bedside but is hemodynamically stable. Past Medical History: COPD, hypertension. Past Surgical History: Pacemaker. Family History: Non-contributory. Social History: Quit smoking over one year ago, denies alcohol and drug use, lives at home. ROS: Negative for fever, chills, weight loss, headache, visual changes, cough, dyspnea, palpitations, edema, dysuria, bleeding, rash, or focal deficits. Positive only for nausea and vomiting. Review of Systems Allergies: Coded Allergies: NO KNOWN ALLERGIES (Unverified , 12/13/13) Medications Current Medications Medications Dose Ordered Sig/Maurisio Route Start Time Stop Time Status Last Admin Dose Admin Sodium Chloride 1,000 ml @ 60 mls/hr [id number] IV 09/23/25 13:15 Acetaminophen 650 mg Q6HP PRN PO 09/23/25 13:15 Morphine Sulfate 2 mg Q4HPRN PRN IV 09/23/25 13:15 Enoxaparin Sodium 40 mg DAILY SC 09/24/25 10:00 Ondansetron HCl 4 mg Q8HPRN PRN IV 09/23/25 13:15 Losartan Potassium 50 mg DAILY PO 09/24/25 10:00 Exam Vital Signs Vital Signs Date Time Temp Pulse Resp B/P (MAP) Pulse Ox O2 Delivery O2 Flow Rate FiO2 09/23/25 10:29 97.2 80 15 134/57 98 97.2 Exam Patient alert, tired appearing but in no acute distress. HEENT normal. Heart regular rate and rhythm, no murmurs. Lungs clear, no wheezes. Abdomen soft with mild epigastric tenderness, bowel sounds present, no rebound or guarding. Extremities warm with no edema. Neuro exam nonfocal and oriented. Labs/Xrays Labs Test 09/23/25 13:01 09/23/25 11:37 09/23/25 11:18 Range/Units White Blood Count 9.3 4.4-10.8 10^3/uL Red Blood Count 3.17 L 4.5-5.90 10^6/uL Hemoglobin 8.4 L 13.5-17.5 g/dL Hematocrit 26.9 L 41.0-53.0 % Mean Corpuscular Volume 84.9 80.0-100.0 fL Mean Corpuscular Hemoglobin 26.7 L 28.0-32.0 pg Mean Corpuscular Hemoglobin Concent 31.4 L 32.0-36.0 g/dL Red Cell Distribution Width 16.4 H 11.8-14.3 % Platelet Count 448 140-450 10^3/uL Mean Platelet Volume 7.1 6.9-10.8 fL Neutrophils (%) (Auto) 55.3 37.0-80.0 % Lymphocytes (%) (Auto) 28.5 10.0-50.0 % Monocytes (%) (Auto) 11.9 0.0-12.0 % Eosinophils (%) (Auto) 3.6 0.0-7.0 % Basophils (%) (Auto) 0.7 0.0-2.0 % Neutrophils # (Auto) 5.1 1.6-8.6 10 ^3/uL Lymphocytes # (Auto) 2.7 0.4-5.4 10 ^3/uL Monocytes # (Auto) 1.1 0-1.3 10 ^3/uL Eosinophils # (Auto) 0.3 0-0.8 10 ^3/uL Basophils # (Auto) 0.1 0-0.2 10 ^3/uL Nucleated Red Blood Cells 0.0 % Sodium Level 140 136-145 mmol/L Potassium Level 4.2 3.5-5.1 mmol/L Chloride Level 108 H 98-107 mmol/L Carbon Dioxide Level 22 20-31 mmol/L Anion Gap 10 5-15 Blood Urea Nitrogen 14 9-23 mg/dL Creatinine 1.23 0.700-1.30 mg/dL Glomerular Filtration Rate Calc 57 >90 mL/min BUN/Creatinine Ratio 11.4 10.0-20.0 Serum Glucose 116 H 74-106 mg/dL Calcium Level 8.4 L 8.7-10.4 mg/dL Total Bilirubin 0.3 0.2-1.0 mg/dL Aspartate Amino Transferase (AST) 18 13-40 U/L Alanine Aminotransferase (ALT) 12 7-40 U/L Alkaline Phosphatase 121 H 46-116 U/L Total Protein 8.1 5.7-8.2 g/dL Albumin 3.4 3.2-4.8 g/dL Lipase 40 12-53 U/L Urine Color Light-yellow Yellow Urine Clarity Clear Clear Urine pH 6.5 5.0-9.0 Urine Specific [place] 1.022 1.001-1.035 Urine Protein Negative Negative Urine Ketones Negative Negative Urine Blood Negative Negative /uL Urine Nitrite Negative Negative Urine Bilirubin Negative Negative Urine Urobilinogen Normal Negative mg/dL Urine Leukocyte Esterase Negative Negative /uL Urine RBC 2 0 - 3 /hpf Urine Microscopic WBC 1 0-3 /HPF Urine Squamous Epithelial Cells Few <5 /hpf Urine Bacteria None seen None Seen /hpf Urine Glucose Normal Normal mg/dL SEPSIS Sepsis Screen Date sepsis recognized/suspect: Sep 23, 2025 Time Sepsis recognized/suspect: 1031 Recent Procedure: No On Antibiotic Therapy: No Respiratory Rate >20: No Heart Rate >90: No Temp<36 C (96.8 F) or >38.3 C: No SBP <90 or MAP <65 mmHG: No New Acute Mental Status Change: No Is the patient on CPAP, BIPAP,: No Physician Orders Chest Portable (09/23/25 11:18) Troponin-I Hs (09/23/25 12:18) Troponin-I Hs (09/23/25 14:18) Electrocardigram (09/23/25 12:23) Electrocardigram (09/23/25 13:23) Electrocardigram (09/23/25 15:23) Admit (09/23/25 13:02) Code Status (09/23/25 13:02) Vital Signs .PER UNIT PROTOCOL (09/23/25 13:02) Review Orders With Adm. (09/23/25 13:02) Sodium Chloride 0.9% (09/23/25 13:15) Acetaminophen Tablet (Tylenol Tablet) (09/23/25 13:15) Notify Md Of Changes From Base (09/23/25 13:02) Advance Directive (09/23/25 13:02) Echo 2d Mode Cardiac Dop (09/23/25 13:02) Patient Condition (09/23/25 13:02) Allergies (09/23/25 13:02) Ambulate Every 4hours Q4H (09/23/25 13:02) Hemoglobin A1c (09/23/25 13:02) Morphine Sulfate Injection (09/23/25 13:15) Enoxaparin Sodium (Lovenox) (09/24/25 10:00) Oxygen By Nasal Cannula (09/23/25 13:02) Stat Ekg For Chest Pain (09/23/25 13:02) Notify Md Of Changes From Base (09/23/25 13:) Java Solutions Architect For 24 Hours (09/23/25 13:02) Emergency Dysrhythmia Protocol (09/23/25 13:) Rhythm Strips Once Every Shift (09/23/25 13:02) Ondansetron Hcl (Zofran) (09/23/25 13:15) Thyroid Stimulating Hormone (09/23/25 13:15) Losartan Tablet (Cozaar Tablet) (09/24/25 10:00) Ct Ab Pel Wo Con-No Oral Or Iv (09/23/25 13:15) Vital Signs Date Time Temp Pulse Resp B/P (MAP) Pulse Ox O2 Delivery O2 Flow Rate FiO2 09/23/25 10:29 97.2 80 15 134/57 98 97.2 Laboratory Tests Test 09/23/25 11:37 White Blood Count 9.3 10^3/uL (4.4-10.8) Assessment/Plan Assessment/Plan #Gastritis Symptoms with epigastric discomfort, vomiting, and CT findings are consistent with gastritis. Continue protonix BID. Supportive care with antiemetics; zofran as needed. Maintain maintenance IV fluids today and monitor clinical response. Advance diet as tolerated. #Intractable vomiting Likely secondary to underlying gastritis. Continue antiemetics and IV hydration. Repeat CMP in the morning to monitor electrolytes. Assess improvement with treatment. #NSTEMI type 2 Troponin elevation with a clear downtrend ([phone] - [phone]), no chest pain, and non-ischemic ECG suggests demand ischemia likely due to dehydration and metabolic stress from vomiting. Continue treating underlying triggers. Echo pending for structural evaluation. No indication for anticoagulation or dual antiplatelet therapy. #Hypertension Blood pressure stable. Start losartan tomorrow once oral intake improves. #Anemia Microcytic anemia with Hgb 8.4. Iron panel, SOB, vitamin B12, and TSH ordered. No evidence of bleeding. Monitor hemoglobin. #COPD Stable, no wheezing, no oxygen requirement. Case discussed with Dr Salinas Full code Plan discussed with: Patient, Other (rn) My Orders Orders - MIQUEL QUINTANA Procedure Category Date Status Time Admit ADMIT 09/23/25 Transmitted 13:02 Code Status CODE 09/23/25 Transmitted 13:02 Vital Signs [facility] 09/23/25 In Process 13:02 Review Orders With [facility] 09/23/25 In Process Adm. 13:02 Sodium Chloride 0.9% PHA 09/23/25 In Process 13:15 Acetaminophen Tablet PHA 09/23/25 In Process (Tylenol Tablet) 13:15 Notify Of Changes [facility] 09/23/25 In Process From Base 13:02 Advance Directive [facility] 09/23/25 In Process 13:02 Echo 2d Mode Cardiac US 09/23/25 Logged DOP 13:02 Patient Condition ORDERS 09/23/25 Transmitted 13:02 Allergies [facility] 09/23/25 In Process 13:02 Ambulate Every 4hours [facility] 09/23/25 In Process 13:02 Hemoglobin A1c LAB 09/23/25 In Process 13:02 Morphine Sulfate PHA 09/23/25 In Process Injection 13:15 Enoxaparin Sodium PHA 09/24/25 In Process (Lovenox) 10:00 Oxygen By Nasal RT 09/23/25 Transmitted Cannula 13:02 Stat Ekg For Chest [facility] 09/23/25 In Process Pain 13:02 Notify Of Changes [facility] 09/23/25 In Process From Base 13:02 Java Solutions Architect For [facility] 09/23/25 In Process 24 Hours 13:02 Emergency Dysrhythmia [facility] 09/23/25 In Process Protocol 13:02 Rhythm Strips Once [facility] 09/23/25 In Process Every Shift 13:02 Ondansetron Hcl PHA 09/23/25 In Process (Zofran) 13:15 Thyroid Stimulating LAB 09/23/25 In Process Hormone 13:15 Losartan Tablet PHA 09/24/25 In Process (Cozaar Tablet) 10:00 Ct Ab Pel Wo Con-No CT 09/23/25 Logged Oral Or Iv 13:15 Date of Service: Sep 23, 2025 Billing Provider: LA SALINAS MD Common Visit Codes: 73168-[id number] INP/OBS CARE (HIGH) Secondary Visit Codes: [id number] CARE PLAN 30 MINUTES MIQUEL QUINTANA RESIDENT Sep 23, 2025 13:32
--- NOTE | 2025-09-23 14:10 | DVH ---
EXAM: CT CT AB PEL WO CON-NO ORAL OR IV INDICATION: VOMIT FOR 2 WEEKS, R/O ANY GASTRIC OBSTRUCTION TECHNIQUE: Volumetric multidetector CT images of the abdomen and pelvis were obtained without contrast. All CT scans at this facility use dose modulation, iterative reconstruction, and/or weight based dosing when appropriate to reduce radiation dose to as low as reasonably achievable. COMPARISON: CT CT AB PEL WITH IV CON ONLY on DOS: 03/08/25 FINDINGS: [LOWER CHEST]: The partially visualized lung bases are clear without a pleural effusion. Mild cardiomegaly. The cardiac size is normal without pericardial effusion. [LIVER]: Suspected small hypoattenuating lesion which is likely benign in the right inferior hepatic lobe measuring 7 mm. Normal hepatic size. [GALLBLADDER AND BILIARY TREE]: No cholelithiasis. [SPLEEN]: Unremarkable. [PANCREAS]: Unremarkable. [ADRENAL GLANDS]: Unremarkable [KIDNEYS]: No hydronephrosis. No nephroureterolithiasis. No suspicious focal lesion. [BLADDER]: Mild anterior bladder wall thickening. [REPRODUCTIVE ORGANS]: Aprw-hh-[id number] prostatomegaly. [BOWEL/MESENTERY]: Inconspicuous air-fluid level in the stomach without significant distention however correlate with clinical exam to exclude gastritis. Mild stool burden. No CT evidence of bowel obstruction. Normal appendix. [ASCITES]: Absent [LYMPHADENOPATHY]: No pathologically enlarged lymph nodes by CT size criteria [VASCULATURE]: Vascular calcifications. No aneurysmal dilatation. [ABDOMINAL WALL]: Unremarkable. [MUSCULOSKELETAL]: No acute fracture or aggressive focal osseous lesion. Multifocal degenerative change of the visualized spine. IMPRESSION: 1. Inconspicuous air-fluid level in the stomach without significant distention however correlate with clinical exam to exclude gastritis. 2. No CT evidence of bowel obstruction. 3. Mild stool burden. Correlate for constipation. 4. Hbak-og-nilhemhh prostatomegaly.
[2025-09-23 19:30] VITALS: PULSE 68; RESP 18; O2SAT 95
[2025-09-23] MEDS: PANTOPRAZOLE 40 MG/10 ML VIAL INJ IV SCH (22:08)
[2025-09-23 22:19] LABS: Total Iron Binding Capacity 288.0 ug/dL (250-425)
[2025-09-23 22:20] LABS: Iron 20.0 ug/dL (65-175)
[2025-09-24] VITALS (10 sets, daily range): BP systolic 127–143; BP diastolic 60–85; PULSE 60–74; RESP 16–18; TEMP 97.5–98.3; O2SAT 97–99
[2025-09-24 04:15] LABS: Lipase 29.0 U/L (12-53)
[2025-09-24 04:17] LABS: Magnesium 1.9 mg/dL (1.6-2.6)
[2025-09-24 04:22] LABS: INR 1.04 (0.9-1.15); Partial Thromboplastin Time 31.4 SEC (24.5-34.5); Prothrombin Time 11.0 sec (9.3-11.8)
[2025-09-24 04:32] LABS: Triglycerides 72.0 mg/dL (< 150)
[2025-09-24 04:34] LABS: Cholesterol 99.0 mg/dL (< 200); HDL Cholesterol 26.0 mg/dL (40-59)
[2025-09-24] MEDS ORDERED: PANT40T PO (05:23)
[2025-09-24] MEDS ORDERED: AMLO1TAB22 PO (05:23)
[2025-09-24 07:36] LABS: Hematocrit 21.6 % (41.0-53.0); Mean Corpuscular Hemoglobin 26.8 pg (28.0-32.0); Mean Corpuscular Volume 83.7 fL (80.0-100.0); Nucleated Red Blood Cells % 0.0 %
[2025-09-24 07:37] LABS: Alkaline Phosphatase 97 U/L (46-116); Anion Gap 10 (5-15); BUN/Creatinine Ratio 10.3 (10.0-20.0); Blood Urea Nitrogen 12 mg/dL (9-23); Carbon Dioxide 21 mmol/L (20-31); Glucose 88 mg/dL (74-106); Magnesium 1.9 mg/dL (1.6-2.6); Potassium 4.5 mmol/L (3.5-5.1); Sodium 141 mmol/L (136-145); Total Protein 6.1 g/dL (5.7-8.2)
[2025-09-24 07:38] LABS: Bilirubin, Total 0.4 mg/dL (0.2-1.0)
[2025-09-24 07:50] LABS: Alanine Aminotransferase < 9 U/L (7-40); Albumin 2.5 g/dL (3.2-4.8); Calcium 7.8 mg/dL (8.7-10.4); Chloride 110 mmol/L (98-107)
[2025-09-24 07:50] LABS: Amphetamine Screen, Urine Neg (NEGATIVE); Barbiturate Scree,Urine Neg (NEGATIVE); Benzodiazephine Screen, Urine Neg (NEGATIVE); Cannabinoid Screen, Urine Neg (NEGATIVE); Cocaine Screen, Urine Neg (NEGATIVE); Opiate Scree,Urine Neg (NEGATIVE); Phencyclidine Screen, Urine Neg (NEGATIVE)
[2025-09-24 07:52] LABS: Hemoglobin 6.9 g/dL (13.5-17.5)
--- NOTE | 2025-09-24 08:50 | DVHSR ---
APPROVED REPORT EXAM: Two-dimensional and M-mode echocardiogram with Doppler and color Doppler. Blood Pressure: 134/57 mmHg INDICATION NSTEMI RISK FACTORS Height: 5' 4", Weight: 114 DIMENSIONS LVDd 4.7 (3.8-5.7cm) LA (2D) 4.4 (1.9-4.0cm) Aortic Root 4.0 (2.0-3.7cm) LVDs 3.0 (2.5-4.0cm) LA (MM) (1.9-4.0cm) Aortic Cusp Exc 1.8 (1.5-2.0cm) EF (%) 65.0 (55-70%) Rt. Atrium 4.0 (1.9-4.0cm) Asc. Aorta cm IVSd 1.4 (0.7-1.1cm) RV (D) (1.8-2.4cm) PWd 1.3 (0.7-1.1cm) Mitral Valve Mitral Mitral Stenosis E wave 0.60m/s MV Mean GR. mmHg A wave 0.80m/s MV Peak GR. mmHg E/A ratio 0.8 2D MVA cm2 Aortic Valve Aortic Valve Aortic Stenosis V1 0.80m/s AO Mean GR. 5mmHg V2 1.50m/s AO Peak GR. 10mmHg LVOT Diameter 2.1 (1.8-2.4cm) Doppler RHONDA 1.85cm2 AI P 1/2 Time 410.40ms Tricuspid Valve TR Velocity 2.60m/s RVSP 35mmHg Conclusion lvef 60% SEVERE LVH moderate aortic regurg pacing lead in RV
[2025-09-24 08:53] LABS: Hematocrit 28.6 % (41.0-53.0); Hemoglobin 8.9 g/dL (13.5-17.5)
--- NOTE | 2025-09-24 09:18 | ECG ---
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
[2025-09-24] MEDS ORDERED: LOSARTAN POTASSIUM 50 MG TAB PO SCH (10:00)
[2025-09-24] MEDS ORDERED: ENOXAPARIN SOD 40 MG/0.4 ML SYRINGE SC SCH (10:00)
[2025-09-24] MEDS: MAGNESIUM SULFATE 1GM/100ML 100 ML IV ONE (10:11)
--- NOTE | 2025-09-24 11:02 | DVHPNRES ---
Progress Note Date Seen: Sep 24, 2025 Resident Creating Document: PATTY ROSENBAUM RESIDENT Medical Necessity Reason Pt with a Central, PICC or Fol: No Subjective Review of Systems This is a Thai-speaking patient and the daughter serves as record filing clerk. He came because he has been having persistent nausea with repeated vomiting today, associated with decreased appetite and mild epigastric discomfort. As per daughter nausea and vomiting started 2 weeks before usually 1 or 2 times a day nonbloody, but night before admission patient was vomiting 5 to 6 times a day, nonbloody. He denies chest pain, shortness of breath, palpitations, syncope, diarrhea, or blood in the stool. No hematemesis or melena. He reports feeling weak but remained oriented and interactive during evaluation. Vitals were stable on arrival. Labs showed anemia with Hgb 8.4, mild elevation in alkaline phosphatase, normal electrolytes, and glucose 116. His CT abdomen showed no obstruction, no acute pathology, and findings compatible with gastritis or constipation. Chest X-ray showed hyperinflated lungs consistent with COPD but no acute disease. Troponins were elevated but downtrending (618 - 537 - 492) without any chest discomfort. EKG showed no ischemic changes. He continues to feel nauseated at bedside but is hemodynamically stable. Past Medical History: COPD, hypertension. Past Surgical History: Pacemaker. Family History: Non-contributory. Social History: Quit smoking over one year ago, denies alcohol and drug use, lives at home. ROS Cardiovascular- deny acute chest pain or shortness of breath or cough or palpitation Respiratory denies cough or short of breath or wheezing Gastrointestinal- nausea or vomiting, abdominal discomfort Musculoskeletal-denies acute joint swelling or tenderness or redness Neurological- denies acute dysarthria, dysphagia, change in vision Psychiatry- denies depression or SI or HI Skin- denies acute rash or purpura Patient was seen today at bedside. Labs and chart reviewed Ordered stool occult blood test Lactic acid 1.6 Troponin I trending down 618> 537> 492> 442> 427> 385> 387 Consult GI recommended for possible EGD after cardiac clearance Ordered cardiology consult for cardiac clearance, as per Cardiology patient is at moderate risk for GI intervention Spoke to daughter [phone], discussed patient's current medical condition, plan of care, answered questions Objective vital signs Vital Sign Date Time Temp Pulse Resp B/P (MAP) Pulse Ox O2 Delivery O2 Flow Rate FiO2 09/24/25 09:00 98.3 63 16 142/73 (96) 98 98.3 09/24/25 07:40 Room Air* 0 21 medications Current Medications Medications Dose Ordered Sig/Maurisio Route Start Time Stop Time Status Last Admin Dose Admin Sodium Chloride 1,000 ml @ 60 mls/hr [id number] IV 09/23/25 13:15 09/24/25 06:36 60 MLS/HR Acetaminophen 650 mg Q6HP PRN PO 09/23/25 13:15 Morphine Sulfate 2 mg Q4HPRN PRN IV 09/23/25 13:15 Ondansetron HCl 4 mg Q8HPRN PRN IV 09/23/25 13:15 Losartan Potassium 50 mg DAILY PO 09/24/25 10:00 Hold Pantoprazole Sodium 40 mg BID IV 09/23/25 18:45 09/24/25 10:11 40 MG Ferrous Sulfate 325 mg DAILY PO 09/25/25 10:00 UNV Sucralfate 1 gm QIDACHS PO 09/24/25 10:30 UNV Ergocalciferol 50,000 unit Q7D PO 09/24/25 10:45 UNV Examination General examination- HEENT- PEERLA, no acute nasal discharge Cardiovascular- S1-S2 audible, rate and rhythm regular, no murmur Respiratory- CTAB, no wheeze or rhonchi Gastrointestinal-nontender, bowel sound+. Nondistended Musculoskeletal-no acute joint swelling or tenderness or redness Lower extremity- Neurological- cranial nerves intact, no acute dysarthria or dysphagia Psychiatry- denies depression or SI or HI Skin- no acute rash or purpura laboratory and microbiology Laboratory Tests 09/24/25 08:30 09/24/25 02:36 Test 09/24/25 02:36 Range/Units Serum Glucose 88 74-106 mg/dL Problem List/Assessment/Plan Problem List/Assessment/Plan Assessment and plan # intractable abdominal pain likely due to acute gastroenteritis # suspected gastritis # gastric adenocarcinoma #Gastric antral mass diagnosed in 06/02/2024 with pathology showing adenocarcinoma-status post chemotherapy # possible GI bleeding -consult Gastroenterology, recommended cardiac clearance for possible endoscopy -continue pantoprazole and sucralfate -NPO -continue IV fluid as prescribed #NSTEMI type 2 likely demand lead ischemia # atrial fibrillation, on pacemaker -continue current conservative management -consult Cardiology, recommended moderate risk for GI intervention # moderate anemia likely from GI bleeding -ordered stool for occult blood test -status post GI consult -continue pantoprazole and sucralfate Goals of care, Code status full code; discussed with >15 minutes PUD prophylaxis: Pantoprazole DVT prophylaxis: SCD Plan discussed with Katty Cage , nursing staff, Total time spent on patient evaluation, chart review, assessment and plan, discussion discussion >35 minutes Plan discussed with: Patient, Daughter, Other (RN) My Orders My Orders Orders - PATTY ROSENBAUM Procedure Category Date Status Time Type And Screen BBK 09/24/25 In Process 08:16 Vital Signs GIOVANI 09/24/25 In Process 08:16 Sequential GIOVAIN 09/24/25 In Process Compression Device 08:20 Electrocardigram EKG 09/24/25 Logged 08:22 Troponin-I Hs LAB 09/24/25 Logged 10:00 Troponin-I Hs LAB 09/24/25 Logged 11:58 Clear Liq Diet DIET 09/24/25 Transmitted Breakfast Ferrous Sulfate Tablet PHA 09/25/25 Logged 10:00 Sucralfate Tab PHA 09/24/25 Logged (Carafate Tab) 10:30 Ergocalciferol PHA 09/24/25 Logged (Vitamin D 50,000 10:45 Visit Coding STANDARD RES Billing Provider: MELO VERDIN MD Date of Service if different f: Sep 24, 2025 Common Visit Codes: [id number] INP/OBS CARE(HIGH) PATTY ROSENBAUM RESIDENT Sep 24, 2025 11:02
[2025-09-24] MEDS: ERGOCALCIFEROL 50,000 UNIT(1.25MG) CAP PO SCH (11:21)
[2025-09-24] MEDS: SUCRALFATE 1 GM TAB PO SCH (11:21)
[2025-09-24] MEDS ORDERED: IRON SUCROSE COMPLEX 110 ML IV SCH (12:00)
--- NOTE | 2025-09-24 13:28 | DVHINCON2 ---
GI Consult Consult Note GI consult note Date of Consultation: 09/24/2025 Chief Complaint: Rule out GI bleeding Referring Physician: Dr. Carbone H&P: 84-year-old [place] speaking male, daughter at bedside translating, admitted with persistent nausea and vomiting. No nausea or vomiting at this time. Also was complaining of epigastric pain. Patient denies any abdominal pain at this time. No hematemesis. No melena or red blood in stool. Per daughter no weight loss. Last bowel movement two days ago. Patient is status post EGD and colonoscopy 06/02/2024, where patient was diagnosed with pre-pyloric antral circumferential ulcerated mass and pathology showed adenocarcinoma, intestinal type, moderately differentiated. RENETTA two by immunohistochemistry Patient and family at that time was given results by Dr. Sarmiento and was recommended for further treatment but patient decided for alternative treatment and was feeling better. No chemo or radiation done Patient also has a pacemaker and cardiology consult pending Past Medical History: COPD, hypertension Past Surgical History: Pacemaker Social History: Quit smoking over one year ago, denies alcohol and drug use, lives at home. Family History: Noncontributory Review of Systems: Constitutional: no fever, chill, weight loss HEENT: no eye pain, no hearing loss, no oral lesion, no scleral icterus Heart: no chest pain, no chest pressure Lung: no cough, no dyspnea with exertion Abdomen: see HPI Physical exam: General: NAD, AAOX3 Chest: lung stephens clear to auscultation Heart: RRR, no murmur Abdomen: non-distended, no tenderness to palpation, +BS Labs: Labs Test 09/24/25 12:02 09/24/25 10:00 09/24/25 08:30 09/24/25 02:36 Range/Units Troponin I High Sensitivity 385 *H </=54 ng/L Lactic Acid Level 1.6 0.4-2.0 mmol/L Hemoglobin 8.9 #L 13.5-17.5 g/dL Hematocrit 28.6 #L 41.0-53.0 % White Blood Count 7.1 4.4-10.8 10^3/uL Red Blood Count 2.58 L 4.5-5.90 10^6/uL Mean Corpuscular Volume 83.7 80.0-100.0 fL Mean Corpuscular Hemoglobin 26.8 L 28.0-32.0 pg Mean Corpuscular Hemoglobin Concent 32.0 32.0-36.0 g/dL Red Cell Distribution Width 16.5 H 11.8-14.3 % Platelet Count 359 140-450 10^3/uL Mean Platelet Volume 7.6 6.9-10.8 fL Neutrophils (%) (Auto) 48.9 37.0-80.0 % Lymphocytes (%) (Auto) 30.9 10.0-50.0 % Monocytes (%) (Auto) 13.9 H 0.0-12.0 % Eosinophils (%) (Auto) 5.8 0.0-7.0 % Basophils (%) (Auto) 0.5 0.0-2.0 % Neutrophils # (Auto) 3.5 1.6-8.6 10 ^3/uL Lymphocytes # (Auto) 2.2 0.4-5.4 10 ^3/uL Monocytes # (Auto) 1.0 0-1.3 10 ^3/uL Eosinophils # (Auto) 0.4 0-0.8 10 ^3/uL Basophils # (Auto) 0 0-0.2 10 ^3/uL Nucleated Red Blood Cells 0.0 % Prothrombin Time 11.0 9.3-11.8 sec Prothrombin Time INR 1.04 0.9-1.15 Activated Partial Thromboplast Time 31.4 24.5-34.5 SEC Sodium Level 141 136-145 mmol/L Potassium Level 4.5 3.5-5.1 mmol/L Chloride Level 110 H 98-107 mmol/L Carbon Dioxide Level 21 20-31 mmol/L Anion Gap 10 5-15 Blood Urea Nitrogen 12 9-23 mg/dL Creatinine 1.17 0.700-1.30 mg/dL Glomerular Filtration Rate Calc 61 >90 mL/min BUN/Creatinine Ratio 10.3 10.0-20.0 Serum Glucose 88 74-106 mg/dL Calcium Level 7.8 L 8.7-10.4 mg/dL Phosphorus Level 3.1 2.4-5.1 mg/dL Magnesium Level 1.9 1.6-2.6 mg/dL Total Bilirubin 0.4 0.2-1.0 mg/dL Aspartate Amino Transferase (AST) 12 L 13-40 U/L Alanine Aminotransferase (ALT) < 9 7-40 U/L Alkaline Phosphatase 97 46-116 U/L Total Protein 6.1 5.7-8.2 g/dL Albumin 2.5 L 3.2-4.8 g/dL Triglycerides Level 72 < 150 mg/dL Cholesterol Level 99 < 200 mg/dL LDL Cholesterol 64 < 100 mg/dL HDL Cholesterol 26 L 40-59 mg/dL Lipase 29 12-53 U/L Vitamin B12 Level 327 211-911 pg/mL Vitamin D 25-Hydroxy 72.6 30.0-100 ng/mL Thyroid Stimulating Hormone (TSH) 1.46 0.55-4.78 uIU/mL Test 09/23/25 11:37 09/23/25 11:23 09/23/25 11:18 Range/Units Hemoglobin A1c 5.4 <5.7 % A1C Iron Level 20 L 65-175 ug/dL Total Iron Binding Capacity 288 250-425 ug/dL Percent Iron Saturation 6.9 L 20-55 % Ferritin 14.6 L 22-322 ng/mL Urine Opiates Screen Neg NEGATIVE Urine Fentanyl Screen Neg NEGATIVE Urine Barbiturates Screen Neg NEGATIVE Urine Phencyclidine Screen Neg NEGATIVE Urine Amphetamines Screen Neg NEGATIVE Urine Benzodiazepines Screen Neg NEGATIVE Urine Cocaine Screen Neg NEGATIVE Urine Cannabinoids Screen Neg NEGATIVE Urine Color Light-yellow Yellow Urine Clarity Clear Clear Urine pH 6.5 5.0-9.0 Urine Specific [place] 1.022 1.001-1.035 Urine Protein Negative Negative Urine Ketones Negative Negative Urine Blood Negative Negative /uL Urine Nitrite Negative Negative Urine Bilirubin Negative Negative Urine Urobilinogen Normal Negative mg/dL Urine Leukocyte Esterase Negative Negative /uL Urine RBC 2 0 - 3 /hpf Urine Microscopic WBC 1 0-3 /HPF Urine Squamous Epithelial Cells Few <5 /hpf Urine Bacteria None seen None Seen /hpf Urine Glucose Normal Normal mg/dL Imaging: CT abdomen pelvis IMPRESSION: 1. Inconspicuous air-fluid level in the stomach without significant distention however correlate with clinical exam to exclude gastritis. 2. No CT evidence of bowel obstruction. 3. Mild stool burden. Correlate for constipation. 4. Bnlz-yz-tzevpjwf prostatomegaly. Assessment: Abdominal pain Anemia Possible GI bleed Abdominal CT results Gastric antral mass diagnosed in 06/02/2024 with pathology showing adenocarcinoma NSTEMI Pacemaker Plan: Discussed with Dr. Sarmiento - Pt will be scheduled for an EGD with biopsy if cleared by Cardiology, tomorrow 09/25/2025. Pt was informed of the risks (bleeding, infection, perforation, reaction to sedation medications and cardiopulmonary arrest) and benefit and is agreeable to undergo the procedures. Zofran and Protonix NPO after midnight Discussed plan with patient and RN and Dr. Carbone resident Thank you for this consult Date of Service: Sep 24, 2025 Billing Provider: ANA ROSA ARMENDARIZ Common Visit Codes: CONSULT ONLY Consultation Codes: [id number] CONSULT <60MIN ANA ROSA ARMENDARIZ Sep 24, 2025 13:28
--- NOTE | 2025-09-24 14:57 | DVHINCON2 ---
Date Seen: Sep 24, 2025 Referring Physician MD Raf Reason for Consultation NSTEMI History of Present Illness This is an 84-year-old man who presented to the emergency room with a chief complaint of nausea and vomiting for two weeks. Daughter/caregivers at bedside reporting ongoing episodes of nausea and vomiting for two weeks with more frequency during the past two days. Denies chest pain, palpitations, diaphores is, SOB, dizziness, or syncopal events. The patient underwent a 12 lead electrocardiogram revealing an atrial paced rhythm with underlying sinus rhythm and no evidence of acute ST-T wave segment changes. Serial troponins peaked in the 600s ng/L now trending down with primary care team requesting cardiology consultation. The patient follows up in the outpatient setting with Dr. Gutierrez. Currently off antiplatelet therapy or DOAC therapy as advised in the past by GI specialist given severe anemia. Significant medical history includes coronary artery disease status post PTCA and stenting of the LAD and circumflex including two AYANNA in 12/25/2019 (off antiplatelet therapy), complete atrioventricular block status post permanent dual-chamber pacemaker implantation in 2019 (Biotronik), paroxysmal atrial fibrillation (off NOAC therapy/antiarrhythmic), gastric adenocarcinoma with current alternative therapy, hypertension, COPD, and history of tobacco use (quit smoking a year ago). Past Medical History Past medical history reviewed. No other significant than mentioned above. Past Surgical History Coronary artery disease status post PCI x2 AYANNA, 2019 Permanent pacemaker implantation, 2019 Nasal fracture repair Family History: Cerebrovascular accident (CVA) G8 MOTHER G8 SISTER FH: cancer G8 SISTER Hypertension G8 MOTHER Family History Family history reviewed. Social History Denies the use of illicit drugs, alcohol, or tobacco use. Quit smoking over a year ago. Allergies: Coded Allergies: NO KNOWN ALLERGIES (Unverified , 12/13/13) Home Meds Active Scripts Nirmatrelvir/Ritonavir (PAXLOVID 20 x 150 MG & 10 x 100MG) 1 Tab Tab, 1 TAB PO BID for 5 Days, #10 TAB Prov:OLIVIA JACKSON PAC 06/10/24 Ferrous Sulfate (FERROUS SULFATE) 325 Mg Tb, 325 MG PO EOD for 30 Days, #30 TAB Prov:RAY GLASS MD 06/03/24 Saline (Saline Nasal [place]) 0.65 % Spr, 0.65 % NA UD for 30 Days, #1 SPRAY 0 Refills Prov:MARGY QUEVEDO [facility] [employer] [employer] 04/10/24 Naphazoline W/ Pheniramine (Naphcon-A 0.025-0.3 %) 1 Matilde Matilde, 1-2 DROP OP QIDPRN, #15 ML Prov:MANUELOLIVIA PAC 02/14/24 Metoprolol Tartrate (Metoprolol Tartrate) 25 Mg Tab, 1 TAB PO BID, #120 TAB 1 Refill Prov:LUANA JACKSON MD 12/28/19 Atorvastatin Calcium (ATORVASTATIN CALCIUM) 20 Mg Tab, 40 MG PO HS for 90 Days, #90 TAB Prov:LUANA JACKSON MD 12/28/19 Reported Medications Amlodipine Besylate (Amlodipine Besylate) 5 Mg Tab, 1 TAB PO DAILY 09/24/25 Pantoprazole Sodium Sesquihydr (Pantoprazole Sodium) 40 Mg Tab, 1 TAB PO DAILY 09/24/25 Cholecalciferol (VITAMIN D3) 2,000 Unit Tab, 2000 UNIT OR, TAB 05/28/24 Losartan Potassium (Losartan Potassium) 100 Mg Tab, 100 MG PO DAILY for 30 Days, MG 05/28/24 Cholecalciferol (Vitamin D3) 1,000 Unit Cap, 1000 UNIT PO DAILY, CAP 12/25/19 Losartan Potassium (Losartan Potassium) 100 Mg Tab, 100 MG PO DAILY, TAB 12/25/19 Home Meds Home medications reviewed. Current Medications Current Medications Medications (Trade) Dose Ordered Sig/Maurisio Route PRN Reason Start Time Stop Time Status Last Admin Enoxaparin Sodium (Lovenox) 40 mg DAILY SC 09/24/25 10:00 09/24/25 08:21 DC Losartan Potassium (Cozaar Tablet) 50 mg DAILY PO 09/24/25 10:00 Hold Pantoprazole Sodium (Protonix) 40 mg BID IV 09/23/25 18:45 09/24/25 10:11 Iron Sucrose 110 ml @ 110 mls/hr DAILY@1200 IV 09/24/25 12:00 09/24/25 10:30 DC Ferrous Sulfate 325 mg DAILY PO 09/25/25 10:00 Sucralfate (Carafate Tab) 1 gm QIDACHS PO 09/24/25 10:30 09/24/25 11:21 Ergocalciferol (Vitamin D 50,000 Unit) 50,000 unit Q7D PO 09/24/25 10:45 09/24/25 11:21 Review of Systems Constitutional: No symptom reported Ears, Nose, & Throat: No symptom reported Eyes: No symptom reported Neurological: No symptoms reported Pulmonary/Respiratory: No symptom reported Cardiovascular: No symptom reported Gastrointestinal: Nausea vomiting Genitourinary: No symptom reported Musculoskeletal: No symptom reported Skin: No symptom reported Psychiatric: No symptom reported Endocrine: No symptom reported Hemotologic/Lymphatic: No symptom reported Vital Signs Vital Signs Date Time Temp Pulse Resp B/P (MAP) Pulse Ox O2 Delivery O2 Flow Rate FiO2 09/24/25 12:57 98.3 63 16 129/68 (88) 98 98.3 09/24/25 07:40 Room Air* 0 21 Physical Exam General Appearance: Cooperative. Well developed. Well nourished. In no acute distress Head Exam: Normal inspection Neck Exam: Normal inspection. Non-tender. Normal alignment Pulmonary/Respiratory: Chest non-tender. Clear bilateral breath sounds Cardiovascular/Chest: Regular rate and rhythm. S1, S2. Paced rhythm with underlying sinus rhythm. No murmurs. No JVD. Peripheral Pulses: 2+ Radial (R). 2+ Radial (L). 2+ Pedal (R). 2+ Pedal (L) Abdominal Exam: Normal bowel sounds. Soft. Nontender. Ankle Exam: Negative ankle edema Lower extremities: Negative lower extremity edema Neuro/Mental Status: A&O x3. Coherent Thoughts/Psych: Normal thought pattern. Appropriate mood and affect. Good judgement and insight Appearance: In no acute distress Skin Exam: Normal inspection. Pale color. Warm. Dry Labs/Diagnostic Data Labs Test 09/24/25 12:02 09/24/25 10:00 09/24/25 08:30 09/24/25 02:36 Range/Units Troponin I High Sensitivity 385 *H </=54 ng/L Lactic Acid Level 1.6 0.4-2.0 mmol/L Hemoglobin 8.9 #L 13.5-17.5 g/dL Hematocrit 28.6 #L 41.0-53.0 % White Blood Count 7.1 4.4-10.8 10^3/uL Red Blood Count 2.58 L 4.5-5.90 10^6/uL Mean Corpuscular Volume 83.7 80.0-100.0 fL Mean Corpuscular Hemoglobin 26.8 L 28.0-32.0 pg Mean Corpuscular Hemoglobin Concent 32.0 32.0-36.0 g/dL Red Cell Distribution Width 16.5 H 11.8-14.3 % Platelet Count 359 140-450 10^3/uL Mean Platelet Volume 7.6 6.9-10.8 fL Neutrophils (%) (Auto) 48.9 37.0-80.0 % Lymphocytes (%) (Auto) 30.9 10.0-50.0 % Monocytes (%) (Auto) 13.9 H 0.0-12.0 % Eosinophils (%) (Auto) 5.8 0.0-7.0 % Basophils (%) (Auto) 0.5 0.0-2.0 % Neutrophils # (Auto) 3.5 1.6-8.6 10 ^3/uL Lymphocytes # (Auto) 2.2 0.4-5.4 10 ^3/uL Monocytes # (Auto) 1.0 0-1.3 10 ^3/uL Eosinophils # (Auto) 0.4 0-0.8 10 ^3/uL Basophils # (Auto) 0 0-0.2 10 ^3/uL Nucleated Red Blood Cells 0.0 % Prothrombin Time 11.0 9.3-11.8 sec Prothrombin Time INR 1.04 0.9-1.15 Activated Partial Thromboplast Time 31.4 24.5-34.5 SEC Sodium Level 141 136-145 mmol/L Potassium Level 4.5 3.5-5.1 mmol/L Chloride Level 110 H 98-107 mmol/L Carbon Dioxide Level 21 20-31 mmol/L Anion Gap 10 5-15 Blood Urea Nitrogen 12 9-23 mg/dL Creatinine 1.17 0.700-1.30 mg/dL Glomerular Filtration Rate Calc 61 >90 mL/min BUN/Creatinine Ratio 10.3 10.0-20.0 Serum Glucose 88 74-106 mg/dL Calcium Level 7.8 L 8.7-10.4 mg/dL Phosphorus Level 3.1 2.4-5.1 mg/dL Magnesium Level 1.9 1.6-2.6 mg/dL Total Bilirubin 0.4 0.2-1.0 mg/dL Aspartate Amino Transferase (AST) 12 L 13-40 U/L Alanine Aminotransferase (ALT) < 9 7-40 U/L Alkaline Phosphatase 97 46-116 U/L Total Protein 6.1 5.7-8.2 g/dL Albumin 2.5 L 3.2-4.8 g/dL Triglycerides Level 72 < 150 mg/dL Cholesterol Level 99 < 200 mg/dL LDL Cholesterol 64 < 100 mg/dL HDL Cholesterol 26 L 40-59 mg/dL Lipase 29 12-53 U/L Vitamin B12 Level 327 211-911 pg/mL Vitamin D 25-Hydroxy 72.6 30.0-100 ng/mL Thyroid Stimulating Hormone (TSH) 1.46 0.55-4.78 uIU/mL Test 09/23/25 11:37 09/23/25 11:23 09/23/25 11:18 Range/Units Hemoglobin A1c 5.4 <5.7 % A1C Iron Level 20 L 65-175 ug/dL Total Iron Binding Capacity 288 250-425 ug/dL Percent Iron Saturation 6.9 L 20-55 % Ferritin 14.6 L 22-322 ng/mL Urine Opiates Screen Neg NEGATIVE Urine Fentanyl Screen Neg NEGATIVE Urine Barbiturates Screen Neg NEGATIVE Urine Phencyclidine Screen Neg NEGATIVE Urine Amphetamines Screen Neg NEGATIVE Urine Benzodiazepines Screen Neg NEGATIVE Urine Cocaine Screen Neg NEGATIVE Urine Cannabinoids Screen Neg NEGATIVE Urine Color Light-yellow Yellow Urine Clarity Clear Clear Urine pH 6.5 5.0-9.0 Urine Specific [place] 1.022 1.001-1.035 Urine Protein Negative Negative Urine Ketones Negative Negative Urine Blood Negative Negative /uL Urine Nitrite Negative Negative Urine Bilirubin Negative Negative Urine Urobilinogen Normal Negative mg/dL Urine Leukocyte Esterase Negative Negative /uL Urine RBC 2 0 - 3 /hpf Urine Microscopic WBC 1 0-3 /HPF Urine Squamous Epithelial Cells Few <5 /hpf Urine Bacteria None seen None Seen /hpf Urine Glucose Normal Normal mg/dL Assessment Severe anemia rule out GI bleed Gastric adenocarcinoma with current alternative therapy NSTEMI, likely type 2 secondary to above Coronary artery disease status post PCI x2 AYANNA in 2019 (off antiplatelet therapy at home) Paroxysmal atrial fibrillation, now paced with underlying sinus rhythm (off DOAC/antiarrhythmic agents at home) Pre-procedural cardiovascular examination Hypertension Dyslipidemia HX of tobacco use Plan/Recommendation (Dr. Gutierrez): Likely NSTEMI type 2 secondary to severe anemia. The patient is cardiac stable, denies any symptoms, underwent a twelve-lead electrocardiogram without acute ST- T wave segment changes, and a transthoracic echocardiogram revealing LVEF of 60% with severe LVH & moderate aortic regurgitation. The patient has been off antiplatelet therapy placing him at a high-risk for in-stent thrombosis and/or re-stenosis. Also off DOAC therapy placing him at a high-risk for an acute CVA ([id number] Score 5 points). Initiate beta-tana and low-dose Flecainide. Consider initiation of ASA and low-dose Eliquis therapy once cleared by GI. He is at a moderate-risk for moderate-risk GI intervention. Follow up with Dr. Gutierrez as scheduled on 11/02/2025 at 11:30 a.m., [address]. There is no further cardiac work-up indicated at this time. Kindly call if in need of further recommendations. Thank you for allowing us to participate in this patient's care. This medical document was created using an electronic medical record system with voice recognition software and computerized dictation system. Although this document has been carefully reviewed, there might still be some phonetic and typographical errors. Occasional wrong-word or ``sound-alike substitutions may have occurred due to the inherent limitations of voice recognition software. These areas are purely typographical due to imperfections of the software programs and do not reflect any compromise in the patient's medical care. Please read the chart carefully and recognize, using context, where these substitutions have occurred. Plan discussed with: Patient, Daughter, Other [place]HA Physical activity limitations: NA Date of Service: Sep 24, 2025 Billing Provider: GREY RAUSCH Cardiology Common Codes: 84012-TAFAQOM INP/OBS CARE (High) GREY RAUSCH Sep 24, 2025 14:57
[2025-09-24 15:16] LABS: Hemoglobin 8.0 g/dL (13.5-17.5)
[2025-09-24 15:18] LABS: Hematocrit 25.4 % (41.0-53.0)
[2025-09-24] MEDS: FLECAINIDE ACETATE 50 MG TAB PO SCH (22:00)
[2025-09-25] VITALS (8 sets, daily range): BP systolic 125–141; BP diastolic 54–68; PULSE 61–83; RESP 15–18; TEMP 97.6–98.8; O2SAT 95–99
[2025-09-25 05:43] LABS: Hematocrit 24.5 % (41.0-53.0); Hemoglobin 7.8 g/dL (13.5-17.5); Mean Corpuscular Hemoglobin 26.4 pg (28.0-32.0); Mean Corpuscular Volume 83.3 fL (80.0-100.0); Nucleated Red Blood Cells % 0.1 %
[2025-09-25 05:55] LABS: Anion Gap 9 (5-15); Carbon Dioxide 22 mmol/L (20-31); Potassium 3.9 mmol/L (3.5-5.1); Sodium 139 mmol/L (136-145)
[2025-09-25 06:01] LABS: BUN/Creatinine Ratio 8.9 (10.0-20.0); Blood Urea Nitrogen 10 mg/dL (9-23); Calcium 8.1 mg/dL (8.7-10.4); Chloride 108 mmol/L (98-107); Glucose 84 mg/dL (74-106)
[2025-09-25 06:02] LABS: Magnesium 2.0 mg/dL (1.6-2.6)
[2025-09-25] MEDS ORDERED: SODIUM CHLORIDE LOCK 0 ML ONE (08:59)
[2025-09-25] MEDS ORDERED: LIDOCAINE VISCOUS 2% 15ML UD ONE (08:59)
[2025-09-25] MEDS ORDERED: diphenhydrAMINE HCL 50 MG/1 ML VL ONE (09:00)
[2025-09-25] MEDS ORDERED: MIDAZOLAM HCL 5 MG/ML-1ML VIAL ONE (09:00)
[2025-09-25] MEDS ORDERED: fentaNYL CITRATE 100 MCG/2 ML VL ONE (09:01)
[2025-09-25] MEDS: FERROUS SULFATE 325mg EC TAB PO SCH (09:01)
[2025-09-25] MEDS ORDERED: NALOXONE HCL 0.4 MG/ML VIAL ONE (09:02)
[2025-09-25] MEDS ORDERED: FLUMAZENIL 0.1 MG/ML INJ 10ML MDV IV ONE (09:02)
[2025-09-25] MEDS: METOPROLOL SUCCINATE XL 50 MG TAB PO SCH (09:09)
--- NOTE | 2025-09-25 13:26 | DVHPN2 ---
Subjective No new complaints Changes from previous H/P or p: No Changes Objective Vitals Vital Signs Date Time Temp Pulse Resp B/P (MAP) Pulse Ox O2 Delivery O2 Flow Rate FiO2 09/25/25 09:09 67 138/68 09/25/25 09:05 98.1 16 98 98.1 09/25/25 08:10 Room Air* 0 21 Intake/Output Intake and Output 09/25/25 07:00 Intake Total 1120 ml Balance 1120 ml Intake Oral 1020 ml IV Total 100 ml Tube Feeding 0 ml # Voids 8 # Bowel Movements 2 Exam General: NAD, AAOX3 Chest: lung stephens clear to auscultation Heart: RRR, no murmur Abdomen: non-distended, no tenderness to palpation, +BS Medications Current Medications Medications Dose Ordered Sig/Maurisio Route Start Time Stop Time Status Last Admin Dose Admin Sodium Chloride 1,000 ml @ 60 mls/hr [id number] IV 09/23/25 13:15 09/24/25 06:36 60 MLS/HR Acetaminophen 650 mg Q6HP PRN PO 09/23/25 13:15 Morphine Sulfate 2 mg Q4HPRN PRN IV 09/23/25 13:15 Ondansetron HCl 4 mg Q8HPRN PRN IV 09/23/25 13:15 Losartan Potassium 50 mg DAILY PO 09/24/25 10:00 Hold Pantoprazole Sodium 40 mg BID IV 09/23/25 18:45 09/25/25 09:01 40 MG Ferrous Sulfate 325 mg DAILY PO 09/25/25 10:00 09/25/25 09:01 325 MG Sucralfate 1 gm QIDACHS PO 09/24/25 10:30 09/24/25 22:11 1 GM Ergocalciferol 50,000 unit Q7D PO 09/24/25 10:45 09/24/25 11:21 50,000 UNIT Metoprolol Succinate 25 mg DAILY PO 09/25/25 10:00 Flecainide Acetate 50 mg Q12HR PO 09/24/25 22:00 Laboratory Results Laboratory Tests 09/25/25 05:05 Chemistry Test 09/25/25 05:05 Calcium Level 8.1 mg/dL (8.7-10.4) L Magnesium Level 2.0 mg/dL (1.6-2.6) Urinalysis Test 09/23/25 11:18 Urine Color Light-yellow (Yellow) Urine Clarity Clear (Clear) Urine pH 6.5 (5.0-9.0) Urine Specific [place] 1.022 (1.001-1.035) Urine Protein Negative (Negative) Urine Ketones Negative (Negative) Urine Blood Negative /uL (Negative) Urine Nitrite Negative (Negative) Urine Bilirubin Negative (Negative) Urine Urobilinogen Normal mg/dL (Negative) Urine Leukocyte Esterase Negative /uL (Negative) Urine RBC 2 /hpf (0 - 3) Urine Microscopic WBC 1 /HPF (0-3) Urine Squamous Epithelial Cells Few /hpf (<5) Urine Bacteria None seen /hpf (None Seen) Urine Glucose Normal mg/dL (Normal) Assessment/Plan Assessment/Plan Abdominal pain Anemia Possible GI bleed Abdominal CT results Gastric antral mass diagnosed in 06/02/2024 with pathology showing adenocarcinoma NSTEMI Pacemaker Plan: Discussed with Dr. Sarmiento Patient procedure we will have to be rescheduled for tomorrow due to non availability of MAC sedation with anesthesiologist We will restart clear liquids for today and NPO after midnight Scheduled for EGD tomorrow 09/26/2025 Plan discussed with: Patient, Daughter, Other (RN) My Orders Orders - ANA ROSA ARMENDARIZ Procedure Category Date Status Time Clear Liq Diet DIET 09/25/25 Transmitted Lunch Obtain Consent For GIOVANI 09/25/25 In Process Anesthesia 13:09 Obtain Consent For: ORDERS 09/25/25 Verified 13:09 Date of Service: Sep 25, 2025 Billing Provider: ANA ROSA ARMENDARIZ Common Visit Codes: [id number] INP/OBS CARE(HIGH) ANA ROSA ARMENDARIZ Sep 25, 2025 13:26
--- NOTE | 2025-09-25 15:17 | DVHPNRES ---
Progress Note Date Seen: Sep 25, 2025 Resident Creating Document: PATTY ROSENBAUM RESIDENT Medical Necessity Reason Pt with a Central, PICC or Fol: No Subjective Review of Systems This is a Kinyarwanda-speaking patient and the daughter serves as weapons officer naval activity. He came because he has been having persistent nausea with repeated vomiting today, associated with decreased appetite and mild epigastric discomfort. As per daughter nausea and vomiting started 2 weeks before usually 1 or 2 times a day nonbloody, but night before admission patient was vomiting 5 to 6 times a day, nonbloody. He denies chest pain, shortness of breath, palpitations, syncope, diarrhea, or blood in the stool. No hematemesis or melena. He reports feeling weak but remained oriented and interactive during evaluation. Vitals were stable on arrival. Labs showed anemia with Hgb 8.4, mild elevation in alkaline phosphatase, normal electrolytes, and glucose 116. His CT abdomen showed no obstruction, no acute pathology, and findings compatible with gastritis or constipation. Chest X-ray showed hyperinflated lungs consistent with COPD but no acute disease. Troponins were elevated but downtrending ([phone]) without any chest discomfort. EKG showed no ischemic changes. He continues to feel nauseated at bedside but is hemodynamically stable. Past Medical History: COPD, hypertension. Past Surgical History: Pacemaker. Family History: Non-contributory. Social History: Quit smoking over one year ago, denies alcohol and drug use, lives at home. ROS Cardiovascular- deny acute chest pain or shortness of breath or cough or palpitation Respiratory denies cough or short of breath or wheezing Gastrointestinal- nausea or vomiting, abdominal discomfort Musculoskeletal-denies acute joint swelling or tenderness or redness Neurological- denies acute dysarthria, dysphagia, change in vision Psychiatry- denies depression or SI or HI Skin- denies acute rash or purpura Patient was seen today at bedside. Labs and chart reviewed Patient was seen by plant engineering supervisor, Patient procedure we will have to be rescheduled for tomorrow due to non availability of MAC sedation with anesthesiologist We will restart clear liquids for today and NPO after midnight Scheduled for EGD tomorrow 09/26/2025 Spoke to daughter [phone], discussed patient's current medical condition, plan of care, answered questions Objective vital signs Vital Sign Date Time Temp Pulse Resp B/P (MAP) Pulse Ox O2 Delivery O2 Flow Rate FiO2 09/25/25 09:09 67 138/68 09/25/25 09:05 98.1 16 98 98.1 09/25/25 08:10 Room Air* 0 21 Total Intake and Output 09/24/25 09/24/25 09/25/25 15:00 23:00 07:00 Intake Total 100 ml 1020 ml 0 ml Balance 100 ml 1020 ml 0 ml medications Current Medications Medications Dose Ordered Sig/Maurisio Route Start Time Stop Time Status Last Admin Dose Admin Sodium Chloride 1,000 ml @ 60 mls/hr [id number] IV 09/23/25 13:15 09/24/25 06:36 60 MLS/HR Acetaminophen 650 mg Q6HP PRN PO 09/23/25 13:15 Morphine Sulfate 2 mg Q4HPRN PRN IV 09/23/25 13:15 Ondansetron HCl 4 mg Q8HPRN PRN IV 09/23/25 13:15 Losartan Potassium 50 mg DAILY PO 09/24/25 10:00 Hold Pantoprazole Sodium 40 mg BID IV 09/23/25 18:45 09/25/25 09:01 40 MG Ferrous Sulfate 325 mg DAILY PO 09/25/25 10:00 09/25/25 09:01 325 MG Sucralfate 1 gm QIDACHS PO 09/24/25 10:30 09/24/25 22:11 1 GM Ergocalciferol 50,000 unit Q7D PO 09/24/25 10:45 09/24/25 11:21 50,000 UNIT Metoprolol Succinate 25 mg DAILY PO 09/25/25 10:00 Flecainide Acetate 50 mg Q12HR PO 09/24/25 22:00 Examination General examination- awake, alert HEENT- PEERLA, no acute nasal discharge Cardiovascular- S1-S2 audible, rate and rhythm regular, no murmur Respiratory- CTAB, no wheeze or rhonchi Gastrointestinal-abdomen mildly distended, bowel sounds present Musculoskeletal-no acute joint swelling or tenderness or redness Lower extremity- leg edema Neurological- cranial nerves intact, no acute dysarthria or dysphagia Psychiatry- denies depression or SI or HI Skin- no acute rash or purpura laboratory and microbiology Laboratory Tests 09/25/25 05:05 Test 09/25/25 05:05 Range/Units Serum Glucose 84 74-106 mg/dL Problem List/Assessment/Plan Problem List/Assessment/Plan Assessment and plan # intractable abdominal pain likely due to acute gastroenteritis # suspected gastritis # gastric adenocarcinoma #Gastric antral mass diagnosed in 06/02/2024 with pathology showing adenocarcinoma-status post chemotherapy # possible GI bleeding -consult Gastroenterology, recommended cardiac clearance for possible endoscopy -continue pantoprazole and sucralfate -NPO after midnight -possible endoscopic tomorrow -continue IV fluid as prescribed -Ordered SOB #NSTEMI type 2 likely demand-supply ischemia # atrial fibrillation, on pacemaker -continue current conservative management -consult Cardiology, recommended moderate risk for GI intervention # moderate anemia likely from GI bleeding -pending stool for occult blood test -status post GI consult -continue pantoprazole and sucralfate Goals of care, Code status full code; PUD prophylaxis: Pantoprazole DVT prophylaxis: SCD Plan discussed with Katty Cage , nursing staff, Total time spent on patient evaluation, chart review, assessment and plan, discussion discussion >35 minutes Plan discussed with: Patient, Daughter, Other (RN) Visit Coding STANDARD RES Billing Provider: MELO VERDIN MD Date of Service if different f: Sep 25, 2025 Common Visit Codes: [id number] INP/OBS CARE(HIGH) PATTY ROSENBAUM RESIDENT Sep 25, 2025 15:17 EDGARDO BARRIOS RESIDENT Sep 25, 2025 22:40
[2025-09-26] VITALS (9 sets, daily range): BP systolic 134–151; BP diastolic 62–77; PULSE 60–96; RESP 12–20; TEMP 97.7–98.3; O2SAT 95–99
[2025-09-26 05:33] LABS: Hematocrit 22.5 % (41.0-53.0); Hemoglobin 7.1 g/dL (13.5-17.5); Mean Corpuscular Hemoglobin 26.7 pg (28.0-32.0); Mean Corpuscular Volume 85.1 fL (80.0-100.0); Nucleated Red Blood Cells % 0.0 %
[2025-09-26 05:38] LABS: Potassium 4.2 mmol/L (3.5-5.1); Sodium 139 mmol/L (136-145)
[2025-09-26 05:39] LABS: Anion Gap 8 (5-15); Carbon Dioxide 21 mmol/L (20-31)
[2025-09-26 05:44] LABS: BUN/Creatinine Ratio 6.3 (10.0-20.0); Blood Urea Nitrogen 8 mg/dL (9-23); Calcium 7.9 mg/dL (8.7-10.4); Chloride 110 mmol/L (98-107); Glucose 81 mg/dL (74-106)
[2025-09-26 08:36] LABS: Hematocrit 24.9 % (41.0-53.0); Hemoglobin 7.7 g/dL (13.5-17.5)
[2025-09-26] MEDS ORDERED: SUCCINYLCHOLINE CHLORIDE 20 MG/ML 10ML VIAL IV ONE (12:21)
[2025-09-26] MEDS ORDERED: MIDAZOLAM HCL 2MG/2ML 2ml VIAL (1mg/ml) ONE (12:24)
[2025-09-26] MEDS ORDERED: KETAMINE 50mg/ML 1ml syringe ONE (12:24)
[2025-09-26] MEDS ORDERED: fentaNYL CITRATE 100 MCG/2 ML VL ONE (12:24)
[2025-09-26] MEDS ORDERED: PROPOFOL 10 MG/ML 20 ML IV ONE (12:24)
[2025-09-26] MEDS ORDERED: SODIUM CHLORIDE LOCK 10 ML ONE (12:24)
[2025-09-26] MEDS ORDERED: LIDOCAINE 1% INJ PF 5ML AMP ONE (12:24)
[2025-09-26] MEDS: LIDOCAINE VISCOUS 2% 15ML UD ONE (12:55)
--- NOTE | 2025-09-26 13:23 | DVHOP2 ---
Operative Report DATE OF OPERATION: 09/26/25 PROCEDURE: Upper Endoscopy with biopsy PREOPERATIVE INDICATION: The patient is a 84 -year-old male undergoing endoscopy for re-evaluation of gastric adenocarcinoma and recent history of nausea and vomiting POSTOPERATIVE DIAGNOSES: 1. Patient had persistent abnormal ulcerated masslike area involving the antrum and distal body of the stomach causing some partial narrowing into the pyloric duodenal channel 2. 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 Otherwise normal examination up to the 2nd part of the duodenum and I was able to advance the endoscope up to the 2nd part of the duodenum PROCEDURE PERFORMED BY: Meche Sarmiento GI NURSE: Pricila SCOPE: Olympus videoendoscope. ASA CLASS: 3. PREOPERATIVE MEDICATIONS: Dr. Gauri Espinoza PROCEDURE IN DETAIL: After obtaining an informed consent, the patient was placed on left lateral decubitus position. The patient was then sedated with the above medications. A bite block was placed between his teeth. The endoscope was then passed through the oropharynx, into the esophagus, and through the stomach and pylorus up to the second part of the duodenum. The endoscope was then withdrawn. The duodenal bulb postbulbar area and 2nd part of the duodenal were normal with good bile drainage. Patient had a persistent abnormal ulcerated masslike area involving the antrum and distal body of the stomach. 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 Duodenal and gastric biopsies were obtained. The endoscope was then withdrawn into distal esophagus. Esophagus and oropharynx were unremarkable The patient tolerated the procedure well without difficulty. COMPLICATIONS : None SPECIMENS: Duodenal biopsies Gastric antral mass biopsies DISPOSITION: Transfer back to the floor Stable PLAN: 1. Await for biopsy result 2. Will place pt on Protonix 40 mg bid IV 3. Get a Gastrografin upper GI x-ray to rule out any extravasation of contrast from the gastric antrum through the fistulous opening 4. If there was no extravasation of contrast we can start the patient on a clear liquid diet and advance to full liquid diet and start Carafate 1 g 4 times a day 5. DC aspirin NSAIDs smoking alcohol, continue supportive care, patient is not a candidate for chemo or surgical intervention as per daughter MECHE SARMIENTO MD Sep 26, 2025 13:23
[2025-09-26] MEDS ORDERED: CLINIMIX PER PHARMACY 0 ML IV SCH (14:45)
[2025-09-26] MEDS ORDERED: DEXTROSE (50%) 50ML SYRG IV SCH (15:00)
--- NOTE | 2025-09-26 15:39 | DVHPNRES ---
Progress Note Date Seen: Sep 26, 2025 Resident Creating Document: PATTY ROSENBAUM RESIDENT Medical Necessity Reason Pt with a Central, PICC or Fol: No Subjective Review of Systems This is a [place]-speaking patient and the daughter serves as airplane technician. He came because he has been having persistent nausea with repeated vomiting today, associated with decreased appetite and mild epigastric discomfort. As per daughter nausea and vomiting started 2 weeks before usually 1 or 2 times a day nonbloody, but night before admission patient was vomiting 5 to 6 times a day, nonbloody. He denies chest pain, shortness of breath, palpitations, syncope, diarrhea, or blood in the stool. No hematemesis or melena. He reports feeling weak but remained oriented and interactive during evaluation. Vitals were stable on arrival. Labs showed anemia with Hgb 8.4, mild elevation in alkaline phosphatase, normal electrolytes, and glucose 116. His CT abdomen showed no obstruction, no acute pathology, and findings compatible with gastritis or constipation. Chest X-ray showed hyperinflated lungs consistent with COPD but no acute disease. Troponins were elevated but downtrending ([phone]) without any chest discomfort. EKG showed no ischemic changes. He continues to feel nauseated at bedside but is hemodynamically stable. Past Medical History: COPD, hypertension. Past Surgical History: Pacemaker. Family History: Non-contributory. Social History: Quit smoking over one year ago, denies alcohol and drug use, lives at home. ROS Cardiovascular- deny acute chest pain or shortness of breath or cough or palpitation Respiratory denies cough or short of breath or wheezing Gastrointestinal- nausea or vomiting, abdominal discomfort Musculoskeletal-denies acute joint swelling or tenderness or redness Neurological- denies acute dysarthria, dysphagia, change in vision Psychiatry- denies depression or SI or HI Skin- denies acute rash or purpura Patient was seen today at bedside. Labs and chart reviewed Patient had endoscopy today which revealed Patient had persistent abnormal ulcerated masslike area involving the antrum and distal body of the stomach causing some partial narrowing into the pyloric duodenal channel. There appeared to be a small fistulous opening in the antrum Gastroenterology recommended for Gastrografin upper GI x-ray to rule out any extravasation of contrast from the gastric antrum through the fistulous opening. If there was no extravasation of contrast we can start the patient on a clear liquid diet and advance to full liquid diet and start Carafate 1 g 4 times a day Spoke to daughter [phone], discussed patient's current medical condition, plan of care, answered questions Objective vital signs Vital Sign Date Time Temp Pulse Resp B/P (MAP) Pulse Ox O2 Delivery O2 Flow Rate FiO2 09/26/25 14:45 98.3 96 20 135/62 (86) 96 98.3 09/26/25 13:10 Mask 6.0 100 Total Intake and Output 09/25/25 09/25/25 09/26/25 15:00 23:00 07:00 Intake Total 650 ml 200 ml Balance 650 ml 200 ml medications Current Medications Medications Dose Ordered Sig/Maurisio Route Start Time Stop Time Status Last Admin Dose Admin Sodium Chloride 1,000 ml @ 60 mls/hr [id number] IV 09/23/25 13:15 09/26/25 10:48 60 MLS/HR Acetaminophen 650 mg Q6HP PRN PO 09/23/25 13:15 Morphine Sulfate 2 mg Q4HPRN PRN IV 09/23/25 13:15 Ondansetron HCl 4 mg Q8HPRN PRN IV 09/23/25 13:15 Losartan Potassium 50 mg DAILY PO 09/24/25 10:00 Hold Pantoprazole Sodium 40 mg BID IV 09/23/25 18:45 09/26/25 10:48 40 MG Ferrous Sulfate 325 mg DAILY PO 09/25/25 10:00 09/26/25 10:48 325 MG Sucralfate 1 gm QIDACHS PO 09/24/25 10:30 09/25/25 21:48 1 GM Ergocalciferol 50,000 unit Q7D PO 09/24/25 10:45 09/24/25 11:21 50,000 UNIT Metoprolol Succinate 25 mg DAILY PO 09/25/25 10:00 Flecainide Acetate 50 mg Q12HR PO 09/24/25 22:00 Amino Acids 0 ml @ 0 mls/hr PER PHARMACY IV 09/26/25 14:45 Amino Acids/ Electrolytes/ Dextrose 1,000 ml @ 41 mls/hr DAILY@2200 IV 09/26/25 22:00 Diagnostic Test (Pha) 1 strip Q6HR 09/27/25 00:00 Insulin Human Regular FOLLOW SLIDING SCALE Q6HR SC 09/27/25 00:00 Dextrose 50 ml UD IV 09/26/25 15:00 Examination General examination- awake, alert HEENT- PEERLA, no acute nasal discharge Cardiovascular- S1-S2 audible, rate and rhythm regular, no murmur Respiratory- CTAB, no wheeze or rhonchi Gastrointestinal-abdomen mildly distended, bowel sounds present Musculoskeletal-no acute joint swelling or tenderness or redness Lower extremity- leg edema Neurological- cranial nerves intact, no acute dysarthria or dysphagia Psychiatry- denies depression or SI or HI Skin- no acute rash or purpura laboratory and microbiology Laboratory Tests 09/26/25 08:13 09/26/25 04:49 Test 09/26/25 04:49 Range/Units Serum Glucose 81 74-106 mg/dL Problem List/Assessment/Plan Problem List/Assessment/Plan Assessment and plan # intractable abdominal pain likely due to acute gastroenteritis # suspected gastritis # gastric adenocarcinoma #Gastric antral mass diagnosed in 06/02/2024 with pathology showing adenocarcinoma-status post chemotherapy # possible GI bleeding -continue pantoprazole and sucralfate -status post EGD - EGD on 08/27/2025- persistent abnormal ulcerated masslike area involving the antrum and distal body of the stomach causing some partial narrowing into the pyloric duodenal channel. There appeared to be a small fistulous opening in the antrum -Gastroenterology recommended for Gastrografin upper GI x-ray to rule out any extravasation of contrast from the gastric antrum through the fistulous opening. 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 -gastroenterology ordered upper GI series #NSTEMI type 2 likely demand lead ischemia # atrial fibrillation, on pacemaker -continue current conservative management -consult Cardiology, recommended moderate risk for GI intervention # moderate anemia likely from GI bleeding -pending stool for occult blood test -status post GI consult -continue pantoprazole and sucralfate -on Iron Supplement # BPH -ordered Flomax Goals of care, Code status full code; PUD prophylaxis: Pantoprazole DVT prophylaxis: SCD Plan discussed with Katty Cage , nursing staff, Total time spent on patient evaluation, chart review, assessment and plan, discussion discussion >35 minutes Plan discussed with: Patient, Other (RN, daughter) My Orders My Orders Orders - PATTY ROSENBAUM Procedure Category Date Status Time Transfer Orders XFER 09/26/25 Transmitted 07:54 Clinimix Per Pharmacy PHA 09/26/25 In Process 14:45 Comprehensive LAB 09/27/25 Verified Metabolic Panel 04:00 Magnesium LAB 09/27/25 Verified 04:00 Phosphorus LAB 09/27/25 Verified 04:00 Clinimix Per Pharmacy [facility] 09/26/25 In Process 22:00 Amino Acid Infusion PHA 09/26/25 In Process In D10w (Clinimix 4. 22:00 Dextrose 50% Syringe PHA 09/26/25 In Process 15:00 Glucose Blood PHA 09/27/25 In Process (Accu-Chek Comfort 00:00 Insulin R (Human) PHA 09/27/25 In Process (Insulin R) 00:00 Visit Coding STANDARD RES Billing Provider: MELO VERDIN MD Date of Service if different f: Sep 26, 2025 Common Visit Codes: 90469-[id number] INP/OBS CARE(HIGH) PATTY ROSENBAUM Sep 26, 2025 15:39
[2025-09-26] MEDS: TAMSULOSIN HYDROCHLORIDE 0.4 MG CAP PO SCH (19:13)
[2025-09-26] MEDS: AMINO ACID INFUSION IN D10W 1,000 ML IV SCH (22:21)
[2025-09-26] MEDS: InsuLIN REG 1unit/0.01ml Soln (100units/ml) SC SCH (23:39)
[2025-09-26] MEDS: ACCU-CHEK COMFORT CURVE STRIP VI SCH (23:40)
[2025-09-27] VITALS (10 sets, daily range): BP systolic 133–170; BP diastolic 51–69; PULSE 62–67; RESP 15–18; TEMP 97.6–99; O2SAT 96–98
[2025-09-27 05:01] LABS: Nucleated Red Blood Cells % 0.0 %
[2025-09-27 05:04] LABS: Hematocrit 21.6 % (41.0-53.0); Mean Corpuscular Hemoglobin 26.2 pg (28.0-32.0); Mean Corpuscular Volume 82.3 fL (80.0-100.0)
[2025-09-27 05:08] LABS: Hemoglobin 6.9 g/dL (13.5-17.5)
[2025-09-27 05:11] LABS: Alkaline Phosphatase 82 U/L (46-116); Anion Gap 9 (5-15); BUN/Creatinine Ratio 10.1 (10.0-20.0); Blood Urea Nitrogen 12 mg/dL (9-23); Carbon Dioxide 20 mmol/L (20-31); Glucose 100 mg/dL (74-106); Magnesium 1.7 mg/dL (1.6-2.6); Potassium 3.8 mmol/L (3.5-5.1); Sodium 138 mmol/L (136-145); Total Protein 6.2 g/dL (5.7-8.2)
[2025-09-27 05:16] LABS: Alanine Aminotransferase < 9 U/L (7-40); Albumin 2.5 g/dL (3.2-4.8); Bilirubin, Total 0.3 mg/dL (0.2-1.0); Calcium 7.6 mg/dL (8.7-10.4); Chloride 109 mmol/L (98-107)
[2025-09-27 08:21] LABS: Hemoglobin 7.1 g/dL (13.5-17.5)
[2025-09-27 08:24] LABS: Hematocrit 22.0 % (41.0-53.0)
[2025-09-27] MEDS ORDERED: GASTROGRAFIN 120 ML SOL ONE (08:29)
[2025-09-27] MEDS ORDERED: EZ-GAS II GRANULES (RADIOLOGY USE) PO ONE (08:44)
--- NOTE | 2025-09-27 09:39 | DVH ---
XY UGI WITH GASTROGRAFIN, HISTORY: Gastric antral mass adenocarcinoma with fistulous opening COMPARISON: None PROCEDURE: A fuel house attendant radiograph was obtained prior to the procedure. Gastrografin and effervescent granules were administered orally, and radiographs were obtained under intermittent fluoroscopic observation. Total fluoroscopic time was 1.0. FINDINGS: The esophagus was normal in caliber with no stricture, filling defect or wall irregularity demonstrated. Normal esophageal peristalsis was observed. There was prompt passage of contrast through a normal appearing gastroesophageal junction. The stomach distended. Contour irregularity at the pyloric antrum along the greater curvature could be a mass like ulceration. Contrast flowed into more distal loops of small bowel, with no abnormality identified. IMPRESSION: Contour irregularity at the pyloric antrum along the greater curvature could be a mass like ulceration. Clinically correlate with endoscopy.
--- NOTE | 2025-09-27 12:45 | DVHPNRES ---
Progress Note Date Seen: Sep 27, 2025 Resident Creating Document: PATTY ROSENBAUM RESIDENT Medical Necessity Reason Pt with a Central, PICC or Fol: No Subjective Review of Systems This is a [place]-speaking patient and the daughter serves as medical director of hospice. He came because he has been having persistent nausea with repeated vomiting today, associated with decreased appetite and mild epigastric discomfort. As per daughter nausea and vomiting started 2 weeks before usually 1 or 2 times a day nonbloody, but night before admission patient was vomiting 5 to 6 times a day, nonbloody. He denies chest pain, shortness of breath, palpitations, syncope, diarrhea, or blood in the stool. No hematemesis or melena. He reports feeling weak but remained oriented and interactive during evaluation. Vitals were stable on arrival. Labs showed anemia with Hgb 8.4, mild elevation in alkaline phosphatase, normal electrolytes, and glucose 116. His CT abdomen showed no obstruction, no acute pathology, and findings compatible with gastritis or constipation. Chest X-ray showed hyperinflated lungs consistent with COPD but no acute disease. Troponins were elevated but downtrending (618 - [phone] - 492) without any chest discomfort. EKG showed no ischemic changes. He continues to feel nauseated at bedside but is hemodynamically stable. Past Medical History: COPD, hypertension. Past Surgical History: Pacemaker. Family History: Non-contributory. Social History: Quit smoking over one year ago, denies alcohol and drug use, lives at home. ROS Cardiovascular- deny acute chest pain or shortness of breath or cough or palpitation Respiratory denies cough or short of breath or wheezing Gastrointestinal- nausea or vomiting, abdominal discomfort Musculoskeletal-denies acute joint swelling or tenderness or redness Neurological- denies acute dysarthria, dysphagia, change in vision Psychiatry- denies depression or SI or HI Skin- denies acute rash or purpura Patient was seen today at bedside. Labs and chart reviewed Upper GI series revealed-Contour irregularity at the pyloric antrum along the greater curvature could be a mass like ulceration. Clinically correlate with endoscopy. Patient is having 1 unit of blood transfusion due to severe anemia Patient had hematochezia later in the day, ordered H&H, monitor vitals, continue IV fluid Post transfusion hemoglobin 9.5 Discussed about the possible treatment option for the patient including hospice, patient's family needs some time to think about goal of care. Spoke to daughter [phone], discussed patient's current medical condition, plan of care, answered questions. Objective vital signs Vital Sign Date Time Temp Pulse Resp B/P (MAP) Pulse Ox O2 Delivery O2 Flow Rate FiO2 09/27/25 11:33 97.8 65 16 146/53 97.8 09/27/25 08:45 97 09/27/25 08:00 Room Air* 0 21 Total Intake and Output 09/26/25 09/26/25 09/27/25 15:00 23:00 07:00 Intake Total 10 ml 0 ml 0 ml Balance 10 ml 0 ml 0 ml medications Current Medications Medications Dose Ordered Sig/Maurisio Route Start Time Stop Time Status Last Admin Dose Admin Sodium Chloride 1,000 ml @ 60 mls/hr [id number] IV 09/23/25 13:15 09/26/25 10:48 60 MLS/HR Acetaminophen 650 mg Q6HP PRN PO 09/23/25 13:15 Morphine Sulfate 2 mg Q4HPRN PRN IV 09/23/25 13:15 Ondansetron HCl 4 mg Q8HPRN PRN IV 09/23/25 13:15 Losartan Potassium 50 mg DAILY PO 09/24/25 10:00 Hold Pantoprazole Sodium 40 mg BID IV 09/23/25 18:45 09/27/25 09:57 40 MG Sucralfate 1 gm QIDACHS PO 09/24/25 10:30 Hold 09/26/25 19:13 1 GM Ergocalciferol 50,000 unit Q7D PO 09/24/25 10:45 09/24/25 11:21 50,000 UNIT Metoprolol Succinate 25 mg DAILY PO 09/25/25 10:00 Flecainide Acetate 50 mg Q12HR PO 09/24/25 22:00 Amino Acids 0 ml @ 0 mls/hr PER PHARMACY IV 09/26/25 14:45 Amino Acids/ Electrolytes/ Dextrose 1,000 ml @ 41 mls/hr DAILY@2200 IV 09/26/25 22:00 09/26/25 22:21 41 MLS/HR Diagnostic Test (Pha) 1 strip Q6HR 09/27/25 00:00 09/27/25 05:29 1 STRIP Insulin Human Regular FOLLOW SLIDING SCALE Q6HR SC 09/27/25 00:00 Dextrose 50 ml UD IV 09/26/25 15:00 Tamsulosin HCl 0.4 mg QPM PO 09/26/25 18:00 09/26/25 19:13 0.4 MG Iron Sucrose 110 ml @ 110 mls/hr DAILY@1200 IV 09/27/25 12:00 10/01/25 11:59 Examination General examination- awake, alert HEENT- PEERLA, no acute nasal discharge Cardiovascular- S1-S2 audible, rate and rhythm regular, no murmur Respiratory- CTAB, no wheeze or rhonchi Gastrointestinal-abdomen mildly distended, bowel sounds present Musculoskeletal-no acute joint swelling or tenderness or redness Lower extremity- leg edema Neurological- cranial nerves intact, no acute dysarthria or dysphagia Psychiatry- denies depression or SI or HI Skin- no acute rash or purpura laboratory and microbiology Laboratory Tests 09/27/25 07:30 09/27/25 04:37 Test 09/27/25 04:37 Range/Units Serum Glucose 100 74-106 mg/dL Problem List/Assessment/Plan Problem List/Assessment/Plan Assessment and plan # intractable abdominal pain likely due to acute gastroenteritis # suspected gastritis # gastric adenocarcinoma #Gastric antral mass diagnosed in 06/02/2024 with pathology showing adenocarcinoma-status post chemotherapy # possible GI bleeding -continue pantoprazole and sucralfate -status post EGD - EGD on 08/27/2025- persistent abnormal ulcerated masslike area involving the antrum and distal body of the stomach causing some partial narrowing into the pyloric duodenal channel. There appeared to be a small fistulous opening in the antrum -Gastroenterology recommended for Gastrografin upper GI x-ray to rule out any extravasation of contrast from the gastric antrum through the fistulous opening. If there was no extravasation of contrast we can start the patient on a clear liquid diet and advance to full liquid diet and start Carafate 1 g 4 times a day -GI started Clinimix --Upper GI series revealed-Contour irregularity at the pyloric antrum along the greater curvature could be a mass like ulceration. Clinically correlate with endoscopy. 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 -gastroenterology ordered upper GI series #NSTEMI type 2 likely demand lead ischemia # atrial fibrillation, on pacemaker -continue current conservative management -consult Cardiology, recommended moderate risk for GI intervention # severe anemia likely from GI bleeding # hematochezia -pending stool for occult blood test -status post GI consult -continue pantoprazole and sucralfate -on Iron Supplement Patient is having 1 unit of blood transfusion due to severe anemia -order H&H q.12 hours, monitor vitals, -continue IV fluid Post transfusion hemoglobin 9.5 # BPH -ordered Flomax Goals of care, Code status full code; PUD prophylaxis: Pantoprazole DVT prophylaxis: SCD Plan discussed with Katty Cage , nursing staff, Total time spent on patient evaluation, chart review, assessment and plan, discussion discussion >35 minutes Plan discussed with: Patient, Daughter, Other (RN) My Orders My Orders Orders - PATTY ROSENBAUM RESIDENT Procedure Category Date Status Time Clinimix Per Pharmacy PHA 09/26/25 In Process 14:45 Clinimix Per Pharmacy [facility] 09/26/25 In Process 22:00 Amino Acid Infusion PHA 09/26/25 In Process In D10w (Clinimix 4. 22:00 Dextrose 50% Syringe PHA 09/26/25 In Process 15:00 Glucose Blood PHA 09/27/25 In Process (Accu-Chek Comfort 00:00 Insulin R (Human) PHA 09/27/25 In Process (Insulin R) 00:00 Tamsulosin PHA 09/26/25 In Process Hydrochloride (Flomax) 18:00 Code Status CODE 09/27/25 Transmitted 08:09 Full Liq Diet DIET 09/27/25 Transmitted Lunch Complete Blood Count LAB 09/28/25 Verified 04:00 Basic Metabolic Panel LAB 09/28/25 Verified 04:00 Magnesium LAB 09/28/25 Verified 04:00 Dietary Evaluation Review Comments: Nutrition Recommendation: 1) Advance diet as medically feasible 2) Consider TPN/PPN if pt cannot tolerate PO 3) Monitor PO intake, lab values, weight trend, and I/O Expected Outcomes/Goals: GI symptoms to improve Intake to meet >75% estimated needs FU 3-5 days Visit Coding STANDARD RES Billing Provider: MELO VERDIN MD Date of Service if different f: Sep 27, 2025 Common Visit Codes: [id number] INP/OBS CARE(HIGH) PATTY ROSENBAUM RESIDENT Sep 27, 2025 12:45
[2025-09-27] MEDS ORDERED: PANTOPRAZOLE 40mg/50ML NS AE 50 ML IV SCH (13:30)
[2025-09-27] MEDS: PANTOPRAZOLE 40mg/50ML NS AE 50 ML IV SCH (13:30)
[2025-09-27] MEDS: IRON SUCROSE COMPLEX 110 ML IV SCH (14:22)
[2025-09-27] MEDS: PANTOPRAZOLE 40 MG/10 ML VIAL INJ IV ONE (14:22)
[2025-09-27 14:57] LABS: Hematocrit 30.1 % (41.0-53.0); Hemoglobin 9.5 g/dL (13.5-17.5)
[2025-09-27] MEDS: LOSARTAN POTASSIUM 50 MG TAB PO ONE (22:17)
[2025-09-27 22:21] LABS: Hematocrit 27.5 % (41.0-53.0); Hemoglobin 8.7 g/dL (13.5-17.5)
[2025-09-28] MEDS ORDERED: MELATONIN 5 MG TAB PO ONE
[2025-09-28 01:00] VITALS: BP 143/67; PULSE 65; RESP 17; TEMP 98.4; O2SAT 97
[2025-09-28 05:00] VITALS: BP 154/73; PULSE 70; RESP 19; TEMP 98; O2SAT 98
[2025-09-28 06:16] LABS: Hematocrit 26.0 % (41.0-53.0); Hemoglobin 8.5 g/dL (13.5-17.5); Mean Corpuscular Hemoglobin 27.0 pg (28.0-32.0); Mean Corpuscular Volume 82.7 fL (80.0-100.0); Nucleated Red Blood Cells % 0.1 %
[2025-09-28 06:30] LABS: Alkaline Phosphatase 77 U/L (46-116); Anion Gap 8 (5-15); BUN/Creatinine Ratio 8.7 (10.0-20.0); Bilirubin, Total 0.6 mg/dL (0.2-1.0); Blood Urea Nitrogen 9 mg/dL (9-23); Carbon Dioxide 21 mmol/L (20-31); Glucose 101 mg/dL (74-106); Magnesium 1.8 mg/dL (1.6-2.6); Sodium 139 mmol/L (136-145); Total Protein 6.2 g/dL (5.7-8.2)
[2025-09-28 06:40] LABS: Alanine Aminotransferase < 9 U/L (7-40); Albumin 2.5 g/dL (3.2-4.8); Calcium 7.5 mg/dL (8.7-10.4); Chloride 110 mmol/L (98-107); Potassium 3.4 mmol/L (3.5-5.1)
[2025-09-28] MEDS: POTASSIUM EFFERVESENT TAB 25 MEQ GT ONE (07:00)
[2025-09-28 08:07] VITALS: PULSE 62; RESP 15; O2SAT 98
[2025-09-28] MEDS: MAGNESIUM SULFATE 1GM/100ML 100 ML IV ONE (08:51)
[2025-09-28 09:00] VITALS: BP 148/68; PULSE 71; RESP 16; TEMP 98; O2SAT 95
[2025-09-28] MEDS: POTASSIUM EFFERVESENT TAB 25 MEQ PO ONE (09:00)
[2025-09-28] MEDS ORDERED: FERROUS SULFATE 325mg EC TAB PO SCH (10:00)
[2025-09-28] MEDS: LOSARTAN POTASSIUM 25 MG TAB PO SCH (10:52)
--- NOTE | 2025-09-28 11:12 | DVHINCON2 ---
TARSHA MAE SHOW JUMPING INSTRUCTOR 09/28/25 1112: Consultation - Surgical Date Seen: Sep 28, 2025 Referring Physician Reason for Consultation gastric antral mass History of Present Illness History of Present Illness 80-year-old male presents to the hospital with persistent nausea and repeated vomiting associated with decreased appetite and mild epigastric discomfort. Today, the patient is feeling well and has an appetite. 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 On today's visit, the patient and family are considering surgical intervention but would like to continue to think about it further. The patient is comfortably lying in bed with his daughter at the bedside. He denies any current abdominal pain or nausea and is tolerating his diet per his daughter. He has experienced diarrhea since admission, which is attributed to IV hydration and Clinimax supplementation per the daughter. Past Medical/Surgical History Past Medical/Surgical History COPD , hypertension Family and Social History Family and Social History Social History: Quit smoking over one year ago, denies alcohol and drug use, lives at home. Family History: Noncontributory Allergies and medications Allergies: Coded Allergies: NO KNOWN ALLERGIES (Unverified , 12/13/13) Home Meds Active Scripts Nirmatrelvir/Ritonavir (PAXLOVID 20 x 150 MG & 10 x 100MG) 1 Tab Tab, 1 TAB PO BID for 5 Days, #10 TAB Prov:OLIVIA JACKSON 06/10/24 Ferrous Sulfate (FERROUS SULFATE) 325 Mg Tb, 325 MG PO EOD for 30 Days, #30 TAB Prov:RAY GLASS MD 06/03/24 Saline (Saline Nasal [place]) 0.65 % Spr, 0.65 % NA UD for 30 Days, #1 SPRAY 0 Refills Prov:MARGY QUEVEDO NP 04/10/24 Naphazoline W/ Pheniramine (Naphcon-A 0.025-0.3 %) 1 Matilde Matilde, 1-2 DROP OP QIDPRN, #15 ML Prov:OLIVIA JACKSON 02/14/24 Metoprolol Tartrate (Metoprolol Tartrate) 25 Mg Tab, 1 TAB PO BID, #120 TAB 1 R efill Prov:LUANA JACKSON MD 12/28/19 Atorvastatin Calcium (ATORVASTATIN CALCIUM) 20 Mg Tab, 40 MG PO HS for 90 Days, #90 TAB Prov:LUANA JACKSON MD 12/28/19 Reported Medications Amlodipine Besylate (Amlodipine Besylate) 5 Mg Tab, 1 TAB PO DAILY 09/24/25 Pantoprazole Sodium Sesquihydr (Pantoprazole Sodium) 40 Mg Tab, 1 TAB PO DAILY 09/24/25 Cholecalciferol (VITAMIN D3) 2,000 Unit Tab, 2000 UNIT OR, TAB 05/28/24 Losartan Potassium (Losartan Potassium) 100 Mg Tab, 100 MG PO DAILY for 30 Days, MG 05/28/24 Cholecalciferol (Vitamin D3) 1,000 Unit Cap, 1000 UNIT PO DAILY, CAP 12/25/19 Losartan Potassium (Losartan Potassium) 100 Mg Tab, 100 MG PO DAILY, TAB 12/25/19 Review of systems Review of Systems: HEENT:Normal, CVS:Normal, RESPIRATORY:Normal, GI:Normal, :Normal, MSK:Normal, NEURO:Normal Examination Vital signs Vital Signs Date Time Temp Pulse Resp B/P (MAP) Pulse Ox O2 Delivery O2 Flow Rate FiO2 09/28/25 10:52 148/68 09/28/25 09:00 98.0 71 16 95 98.0 09/28/25 08:07 Room Air* 0 21 Medications Current Medications Medications (Trade) Dose Ordered Sig/Maurisio Route PRN Reason Start Time Stop Time Status Last Admin Iron Sucrose 110 ml @ 110 mls/hr DAILY@1200 IV 09/27/25 12:00 09/28/25 06:55 DC 09/27/25 14:22 Pantoprazole Sodium 50 ml @ 10 mls/hr Q5H IV 09/27/25 13:30 09/28/25 09:30 Pantoprazole Sodium 50 ml @ 10 mls/hr Q5H IV 09/27/25 13:30 09/27/25 13:37 DC Amlodipine Besylate (Norvasc Tablet) 5 mg DAILY PO 09/28/25 07:00 09/28/25 08:58 DC Ferrous Sulfate 325 mg DAILY PO 09/28/25 10:00 09/28/25 08:47 DC Iron Sucrose 110 ml @ 110 mls/hr DAILY@1200 IV 09/28/25 12:00 10/01/25 11:59 Losartan Potassium (Cozaar Tablet) 25 mg DAILY PO 09/28/25 10:00 09/28/25 10:52 Laboratory Labs Test 09/28/25 05:19 09/28/25 04:52 09/24/25 15:00 09/24/25 10:00 Range/Units POC Glucose 119 H 70-106 mg/dl White Blood Count 6.5 4.4-10.8 10^3/uL Red Blood Count 3.14 L 4.5-5.90 10^6/uL Hemoglobin 8.5 L 13.5-17.5 g/dL Hematocrit 26.0 L 41.0-53.0 % Mean Corpuscular Volume 82.7 80.0-100.0 fL Mean Corpuscular Hemoglobin 27.0 L 28.0-32.0 pg Mean Corpuscular Hemoglobin Concent 32.6 32.0-36.0 g/dL Red Cell Distribution Width 15.9 H 11.8-14.3 % Platelet Count 342 140-450 10^3/uL Mean Platelet Volume 7.3 6.9-10.8 fL Neutrophils (%) (Auto) 61.3 37.0-80.0 % Lymphocytes (%) (Auto) 19.4 10.0-50.0 % Monocytes (%) (Auto) 12.5 H 0.0-12.0 % Eosinophils (%) (Auto) 6.4 0.0-7.0 % Basophils (%) (Auto) 0.4 0.0-2.0 % Neutrophils # (Auto) 4.0 1.6-8.6 10 ^3/uL Lymphocytes # (Auto) 1.3 0.4-5.4 10 ^3/uL Monocytes # (Auto) 0.8 0-1.3 10 ^3/uL Eosinophils # (Auto) 0.4 0-0.8 10 ^3/uL Basophils # (Auto) 0 0-0.2 10 ^3/uL Nucleated Red Blood Cells 0.1 % Sodium Level 139 136-145 mmol/L Potassium Level 3.4 L 3.5-5.1 mmol/L Chloride Level 110 H 98-107 mmol/L Carbon Dioxide Level 21 20-31 mmol/L Anion Gap 8 5-15 Blood Urea Nitrogen 9 9-23 mg/dL Creatinine 1.04 0.700-1.30 mg/dL Glomerular Filtration Rate Calc 70 >90 mL/min BUN/Creatinine Ratio 8.7 L 10.0-20.0 Serum Glucose 101 74-106 mg/dL Calcium Level 7.5 L 8.7-10.4 mg/dL Phosphorus Level 2.8 2.4-5.1 mg/dL Magnesium Level 1.8 1.6-2.6 mg/dL Total Bilirubin 0.6 0.2-1.0 mg/dL Aspartate Amino Transferase (AST) 14 13-40 U/L Alanine Aminotransferase (ALT) < 9 7-40 U/L Alkaline Phosphatase 77 46-116 U/L Total Protein 6.2 5.7-8.2 g/dL Albumin 2.5 L 3.2-4.8 g/dL Troponin I High Sensitivity 387 *H </=54 ng/L Lactic Acid Level 1.6 0.4-2.0 mmol/L Test 09/24/25 02:36 09/23/25 11:37 09/23/25 11:23 09/23/25 11:18 Range/Units Prothrombin Time 11.0 9.3-11.8 sec Prothrombin Time INR 1.04 0.9-1.15 Activated Partial Thromboplast Time 31.4 24.5-34.5 SEC Triglycerides Level 72 < 150 mg/dL Cholesterol Level 99 < 200 mg/dL LDL Cholesterol 64 < 100 mg/dL HDL Cholesterol 26 L 40-59 mg/dL Lipase 29 12-53 U/L Vitamin B12 Level 327 211-911 pg/mL Vitamin D 25-Hydroxy 72.6 30.0-100 ng/mL Thyroid Stimulating Hormone (TSH) 1.46 0.55-4.78 uIU/mL Hemoglobin A1c 5.4 <5.7 % A1C Iron Level 20 L 65-175 ug/dL Total Iron Binding Capacity 288 250-425 ug/dL Percent Iron Saturation 6.9 L 20-55 % Ferritin 14.6 L 22-322 ng/mL Urine Opiates Screen Neg NEGATIVE Urine Fentanyl Screen Neg NEGATIVE Urine Barbiturates Screen Neg NEGATIVE Urine Phencyclidine Screen Neg NEGATIVE Urine Amphetamines Screen Neg NEGATIVE Urine Benzodiazepines Screen Neg NEGATIVE Urine Cocaine Screen Neg NEGATIVE Urine Cannabinoids Screen Neg NEGATIVE Urine Color Light-yellow Yellow Urine Clarity Clear Clear Urine pH 6.5 5.0-9.0 Urine Specific [place] 1.022 1.001-1.035 Urine Protein Negative Negative Urine Ketones Negative Negative Urine Blood Negative Negative /uL Urine Nitrite Negative Negative Urine Bilirubin Negative Negative Urine Urobilinogen Normal Negative mg/dL Urine Leukocyte Esterase Negative Negative /uL Urine RBC 2 0 - 3 /hpf Urine Microscopic WBC 1 0-3 /HPF Urine Squamous Epithelial Cells Few <5 /hpf Urine Bacteria None seen None Seen /hpf Urine Glucose Normal Normal mg/dL Examination: GENERAL:Normal (AAO x 3), HEENT:Normal (no eye pain, no hearing loss, no oral lesion, no scleral icterus), NECK:Normal, LUNGS:Normal (Clear), CVS:Normal (RRR), ABDOMEN:Normal (soft, non tender ), MSK:Normal, SKIN:Normal (warm, dry ) Problem List/Assessment/Plan Assessment and Plan patients daughter complaint of diarrhea that started when he came to hospital. per patients daughter he eats well at home his abdominal pain starts at night when he lies down for bed. during the visit with patient and daughter this morning he is tolerating diet, denies nausea or vomiting The patient and his daughter are undecided regarding surgery. The daughter inquired about the necessity of further treatment post-surgery. It was explained that surgery would not be curative and would necessitate possibly chemotherapy and follow-up with oncology. The daughter also asked about the extent of the mass to be removed and the details of the recovery period. The operation and recovery period were explained to the patient and his daughter. The daughter expressed discomfort with the recovery period, she does not want her father to suffer. Given that I could not give her a definite outcome or guarantee of the surgery she would like to further discuss with her father. Daughter and patient are looking for either a surgical intervention or treatment that will be 100% successful to remove the cancer in its entirety and no further treatment would be needed in the future. Patients daughter caregiver for father to please let surgical team if they would like to proceed and Dr. Lee could be paged if she has any further questions. Visit Coding Surgery Date of Service if different f: Sep 28, 2025 Billing Provider: SKYLER LEE MD Surgery Visit Codes: 02175 - INP CONSULT <80 MIN SKYLER LEE MD 10/02/25 1033: Consultation - Surgical Allergies and medications Allergies: Coded Allergies: NO KNOWN ALLERGIES (Unverified , 12/13/13) Home Meds Active Scripts Nirmatrelvir/Ritonavir (PAXLOVID 20 x 150 MG & 10 x 100MG) 1 Tab Tab, 1 TAB PO BID for 5 Days, #10 TAB Prov:OLIVIA JACKSON PAC 06/10/24 Ferrous Sulfate (FERROUS SULFATE) 325 Mg Tb, 325 MG PO EOD for 30 Days, #30 TAB Prov:RAY GLASS MD 06/03/24 Saline (Saline Nasal [place]) 0.65 % Spr, 0.65 % NA UD for 30 Days, #1 SPRAY 0 Refills Prov:MARGY QUEVEDO SHOW JUMPING INSTRUCTOR 04/10/24 Naphazoline W/ Pheniramine (Naphcon-A 0.025-0.3 %) 1 Matilde Matilde, 1-2 DROP OP QIDPRN, #15 ML Prov:OLIVIA JACKSON PAC 02/14/24 Metoprolol Tartrate (Metoprolol Tartrate) 25 Mg Tab, 1 TAB PO BID, #120 TAB 1 Refill Prov:LUANA JACKSON MD 12/28/19 Atorvastatin Calcium (ATORVASTATIN CALCIUM) 20 Mg Tab, 40 MG PO HS for 90 Days, #90 TAB Prov:LUANA JACKSON MD 12/28/19 Reported Medications Amlodipine Besylate (Amlodipine Besylate) 5 Mg Tab, 1 TAB PO DAILY 09/24/25 Pantoprazole Sodium Sesquihydr (Pantoprazole Sodium) 40 Mg Tab, 1 TAB PO DAILY 09/24/25 Cholecalciferol (VITAMIN D3) 2,000 Unit Tab, 2000 UNIT OR, TAB 05/28/24 Losartan Potassium (Losartan Potassium) 100 Mg Tab, 100 MG PO DAILY for 30 Days, MG 05/28/24 Cholecalciferol (Vitamin D3) 1,000 Unit Cap, 1000 UNIT PO DAILY, CAP 12/25/19 Losartan Potassium (Losartan Potassium) 100 Mg Tab, 100 MG PO DAILY, TAB 12/25/19 Plan discussed with Plan discussed with: Patient, Daughter TARSHA MAE SHOW JUMPING INSTRUCTOR Sep 28, 2025 11:12 SKYLER LEE MD Oct 02, 2025 10:33
[2025-09-28] MEDS: IRON SUCROSE COMPLEX 110 ML IV SCH (12:05)
[2025-09-28 13:00] VITALS: BP 164/68; PULSE 66; RESP 16; TEMP 97.3; O2SAT 98
--- NOTE | 2025-09-28 14:22 | DVHPN2 ---
Progress Note Date Seen: Sep 28, 2025 Resident Creating Document: LUCITA CARRIZALES RESIDENT Medical Necessity Reason Pt with a Central, PICC or Fol: No Subjective Review of Systems Pt seen and examined, Hb stable, tolerating cl liq diet Objective vital signs Vital Sign Date Time Temp Pulse Resp B/P (MAP) Pulse Ox O2 Delivery O2 Flow Rate FiO2 09/28/25 10:52 148/68 09/28/25 09:00 98.0 71 16 95 98.0 09/28/25 08:07 Room Air* 0 21 Total Intake and Output 09/27/25 09/27/25 09/28/25 15:00 23:00 07:00 Intake Total 900 ml 200 ml 360 ml Balance 900 ml 200 ml 360 ml medications Current Medications Medications Dose Ordered Sig/Maurisio Route Start Time Stop Time Status Last Admin Dose Admin Acetaminophen 650 mg Q6HP PRN PO 09/23/25 13:15 Morphine Sulfate 2 mg Q4HPRN PRN IV 09/23/25 13:15 Ondansetron HCl 4 mg Q8HPRN PRN IV 09/23/25 13:15 Sucralfate 1 gm QIDACHS PO 09/24/25 10:30 Hold 09/26/25 19:13 1 GM Ergocalciferol 50,000 unit Q7D PO 09/24/25 10:45 09/24/25 11:21 50,000 UNIT Metoprolol Succinate 25 mg DAILY PO 09/25/25 10:00 Flecainide Acetate 50 mg Q12HR PO 09/24/25 22:00 Amino Acids/ Electrolytes/ Dextrose 1,000 ml @ 41 mls/hr DAILY@2200 IV 09/26/25 22:00 09/28/25 21:59 09/27/25 22:08 41 MLS/HR Tamsulosin HCl 0.4 mg QPM PO 09/26/25 18:00 09/27/25 18:00 0.4 MG Pantoprazole Sodium 50 ml @ 10 mls/hr Q5H IV 09/27/25 13:30 09/28/25 09:30 10 MLS/HR Iron Sucrose 110 ml @ 110 mls/hr DAILY@1200 IV 09/28/25 12:00 10/01/25 11:59 09/28/25 12:05 110 MLS/HR Losartan Potassium 25 mg DAILY PO 09/28/25 10:00 09/28/25 10:52 25 MG laboratory and microbiology Laboratory Tests 09/28/25 04:52 Test 09/28/25 04:52 Range/Units Serum Glucose 101 74-106 mg/dL Labs and/or images reviewed: Labs reviewed by me, Image(s) reviewed by me Problem List/Assessment/Plan Problem List/Assessment/Plan Intractable abdominal pain likely due to ulcerated mass in distal stomach 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 UGI WITH GASTROGRAFIN Contour irregularity at the pyloric antrum along the greater curvature could be a mass like ulceration. Clinically correlate with endoscopy. POSTOPERATIVE DIAGNOSES: 09/26/25 1. Patient had persistent abnormal ulcerated masslike area involving the antrum and distal body of the stomach causing some partial narrowing into the pyloric duodenal channel 2. 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 Otherwise normal examination up to the 2nd part of the duodenum and I was able to advance the endoscope up to the 2nd part of the duodenum PLAN: Tolerating soft/pureed diet. Follow up with GI as outpatient for biopsy result. F/U with Surgery recommendations Continue Protonix 40 mg bid IV, Carafate 1 g 4 times a day Gastrografin upper GI x-ray : Contour irregularity at the pyloric antrum along the greater curvature could be a mass like ulceration. Clinically correlate with endoscopy. On IV IRON DC aspirin NSAIDs smoking alcohol, continue supportive care, patient is not a candidate for chemo or surgical intervention as per daughter Case discussed with Dr Sarmiento Plan discussed with: Patient, Daughter Dietary Evaluation Review Comments: Nutrition Recommendation: 1) Advance diet as medically feasible 2) Consider TPN/PPN if pt cannot tolerate PO 3) Monitor PO intake, lab values, weight trend, and I/O Expected Outcomes/Goals: GI symptoms to improve Intake to meet >75% estimated needs FU 3-5 days LUCITA CARRIZALES RESIDENT Sep 28, 2025 14:22
[2025-09-28] MEDS: SUCRALFATE 1 GM/10 ML ORAL SUSP PO ONE (14:30)
--- NOTE | 2025-09-28 15:12 | DVHDSRES ---
Discharge Summary Date of Admission Resident Creating Document: LUCITA CARRIZALES RESIDENT Sep 23, 2025 at 13:02 Date of Discharge: Sep 28, 2025 Admitting Diagnosis Intractable abdominal pain likely due to gastroenteritis/malignancy Wounds: Labs/Diagnostic Data: Laboratory Results Test 09/28/25 11:09 09/28/25 04:52 09/24/25 15:00 09/24/25 10:00 POC Glucose 146 mg/dl (70-106) White Blood Count 6.5 10^3/uL (4.4-10.8) Red Blood Count 3.14 10^6/uL (4.5-5.90) Hemoglobin 8.5 g/dL (13.5-17.5) Hematocrit 26.0 % (41.0-53.0) Mean Corpuscular Volume 82.7 fL (80.0-100.0) Mean Corpuscular Hemoglobin 27.0 pg (28.0-32.0) Mean Corpuscular Hemoglobin Concent 32.6 g/dL (32.0-36.0) Red Cell Distribution Width 15.9 % (11.8-14.3) Platelet Count 342 10^3/uL (140-450) Mean Platelet Volume 7.3 fL (6.9-10.8) Neutrophils (%) (Auto) 61.3 % (37.0-80.0) Lymphocytes (%) (Auto) 19.4 % (10.0-50.0) Monocytes (%) (Auto) 12.5 % (0.0-12.0) Eosinophils (%) (Auto) 6.4 % (0.0-7.0) Basophils (%) (Auto) 0.4 % (0.0-2.0) Neutrophils # (Auto) 4.0 10 ^3/uL (1.6-8.6) Lymphocytes # (Auto) 1.3 10 ^3/uL (0.4-5.4) Monocytes # (Auto) 0.8 10 ^3/uL (0-1.3) Eosinophils # (Auto) 0.4 10 ^3/uL (0-0.8) Basophils # (Auto) 0 10 ^3/uL (0-0.2) Nucleated Red Blood Cells 0.1 % Sodium Level 139 mmol/L (136-145) Potassium Level 3.4 mmol/L (3.5-5.1) Chloride Level 110 mmol/L (98-107) Carbon Dioxide Level 21 mmol/L (20-31) Anion Gap 8 (5-15) Blood Urea Nitrogen 9 mg/dL (9-23) Creatinine 1.04 mg/dL (0.700-1.30) Glomerular Filtration Rate Calc 70 mL/min (>90) BUN/Creatinine Ratio 8.7 (10.0-20.0) Serum Glucose 101 mg/dL (74-106) Calcium Level 7.5 mg/dL (8.7-10.4) Phosphorus Level 2.8 mg/dL (2.4-5.1) Magnesium Level 1.8 mg/dL (1.6-2.6) Total Bilirubin 0.6 mg/dL (0.2-1.0) Aspartate Amino Transferase (AST) 14 U/L (13-40) Alanine Aminotransferase (ALT) < 9 U/L (7-40) Alkaline Phosphatase 77 U/L (46-116) Total Protein 6.2 g/dL (5.7-8.2) Albumin 2.5 g/dL (3.2-4.8) Troponin I High Sensitivity 387 ng/L (</=54) Lactic Acid Level 1.6 mmol/L (0.4-2.0) Test 09/24/25 02:36 09/23/25 11:37 09/23/25 11:23 09/23/25 11:18 Prothrombin Time 11.0 sec (9.3-11.8) Prothrombin Time INR 1.04 (0.9-1.15) Activated Partial Thromboplast Time 31.4 SEC (24.5-34.5) Triglycerides Level 72 mg/dL (< 150) Cholesterol Level 99 mg/dL (< 200) LDL Cholesterol 64 mg/dL (< 100) HDL Cholesterol 26 mg/dL (40-59) Lipase 29 U/L (12-53) Vitamin B12 Level 327 pg/mL (211-911) Vitamin D 25-Hydroxy 72.6 ng/mL (30.0-100) Thyroid Stimulating Hormone (TSH) 1.46 uIU/mL (0.55-4.78) Hemoglobin A1c 5.4 % A1C (<5.7) Iron Level 20 ug/dL (65-175) Total Iron Binding Capacity 288 ug/dL (250-425) Percent Iron Saturation 6.9 % (20-55) Ferritin 14.6 ng/mL (22-322) Urine Opiates Screen Neg (NEGATIVE) Urine Fentanyl Screen Neg (NEGATIVE) Urine Barbiturates Screen Neg (NEGATIVE) Urine Phencyclidine Screen Neg (NEGATIVE) Urine Amphetamines Screen Neg (NEGATIVE) Urine Benzodiazepines Screen Neg (NEGATIVE) Urine Cocaine Screen Neg (NEGATIVE) Urine Cannabinoids Screen Neg (NEGATIVE) Urine Color Light-yellow (Yellow) Urine Clarity Clear (Clear) Urine pH 6.5 (5.0-9.0) Urine Specific [place] 1.022 (1.001-1.035) Urine Protein Negative (Negative) Urine Ketones Negative (Negative) Urine Blood Negative /uL (Negative) Urine Nitrite Negative (Negative) Urine Bilirubin Negative (Negative) Urine Urobilinogen Normal mg/dL (Negative) Urine Leukocyte Esterase Negative /uL (Negative) Urine RBC 2 /hpf (0 - 3) Urine Microscopic WBC 1 /HPF (0-3) Urine Squamous Epithelial Cells Few /hpf (<5) Urine Bacteria None seen /hpf (None Seen) Urine Glucose Normal mg/dL (Normal) Other Laboratory Tests 09/28/25 04:52 Brief Hx & Hospital Course: This is a [place]-speaking patient and the daughter serves as brusher machine. He came because he has been having persistent nausea with repeated vomiting today, associated with decreased appetite and mild epigastric discomfort. As per daughter nausea and vomiting started 2 weeks before usually 1 or 2 times a day nonbloody, but night before admission patient was vomiting 5 to 6 times a day, nonbloody. He denies chest pain, shortness of breath, palpitations, syncope, diarrhea, or blood in the stool. No hematemesis or melena. He reports feeling weak but remained oriented and interactive during evaluation. Vitals were stable on arrival. Labs showed anemia with Hgb 8.4, mild elevation in alkaline phosphatase, normal electrolytes, and glucose 116. His CT abdomen showed no obstruction, no acute pathology, and findings compatible with gastritis or constipation. Chest X-ray showed hyperinflated lungs consistent with COPD but no acute disease. Troponins were elevated but downtrending ([phone] - [phone]) without any chest discomfort. EKG showed no ischemic changes. Patient had endoscopy on which revealed Patient had persistent abnormal ulcerated masslike area involving the antrum and distal body of the stomach causing some partial narrowing into the pyloric duodenal channel. There appeared to be a small fistulous opening in the antrum . Post EGD gastroenterology recommended for Upper GI series revealed-Contour irregularity at the pyloric antrum along the greater curvature could be a mass like ulceration. Post endoscopy and biopsy patient had blood with the stool likely from the bleeding from biopsy site. Patient is wanting to blood transfusion. Discussed with the patient and daughter about treatment options. Patient patient did not want to have any surgical intervention or chemotherapy or radiotherapy. Patient wants to go on home hospice. Patient's discharge with the home hospice. Patient was hemodynamically stable on discharge. All question answered. General examination- awake, alert HEENT- PEERLA, no acute nasal discharge Cardiovascular- S1-S2 audible, rate and rhythm regular, no murmur Respiratory- CTAB, no wheeze or rhonchi Gastrointestinal-abdomen mildly distended, bowel sounds present Musculoskeletal-no acute joint swelling or tenderness or redness Lower extremity- leg edema Neurological- cranial nerves intact, no acute dysarthria or dysphagia Psychiatry- denies depression or SI or HI Skin- no acute rash or purpura Plan of care discussed with Dr. Alaniz Consults/Reason for consult Patient: PAIGE ALAS Acct: [id number] : 1940 Loc: [facility] Age/Sex: 84/M Room: 0232 / Bed: A Attending Phy: PATTY ROSENBAUM RESIDENT Operative Report DATE OF OPERATION: 09/26/25 PROCEDURE: Upper Endoscopy with biopsy PREOPERATIVE INDICATION: The patient is a 84 -year-old male undergoing endoscopy for re-evaluation of gastric adenocarcinoma and recent history of nausea and vomiting POSTOPERATIVE DIAGNOSES: 1. Patient had persistent abnormal ulcerated masslike area involving the antrum and distal body of the stomach causing some partial narrowing into the pyloric duodenal channel 2. 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 Otherwise normal examination up to the 2nd part of the duodenum and I was able to advance the endoscope up to the 2nd part of the duodenum PROCEDURE PERFORMED BY: Meche Chowdary GI NURSE: Pricila SCOPE: Olympus videoendoscope. ASA CLASS: 3. PREOPERATIVE MEDICATIONS: Mac sedation, Dr. Astorga PROCEDURE IN DETAIL: After obtaining an informed consent, the patient was placed on left lateral decubitus position. The patient was then sedated with the above medications. A bite block was placed between his teeth. The endoscope was then passed through the oropharynx, into the esophagus, and through the stomach and pylorus up to the second part of the duodenum. The endoscope was then withdrawn. The duodenal bulb postbulbar area and 2nd part of the duodenal were normal with good bile drainage. Patient had a persistent abnormal ulcerated masslike area involving the antrum and distal body of the stomach. 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 Duodenal and gastric biopsies were obtained. The endoscope was then withdrawn into distal esophagus. Esophagus and oropharynx were unremarkable The patient tolerated the procedure well without difficulty. COMPLICATIONS : None SPECIMENS: Duodenal biopsies Gastric antral mass biopsies DISPOSITION: Transfer back to the floor Stable PLAN: 1. Await for biopsy result 2. Will place pt on Protonix 40 mg bid IV 3. Get a Gastrografin upper GI x-ray to rule out any extravasation of contrast from the gastric antrum through the fistulous opening 4. If there was no extravasation of contrast we can start the patient on a clear liquid diet and advance to full liquid diet and start Carafate 1 g 4 times a day 5. DC aspirin NSAIDs smoking alcohol, continue supportive care, patient is not a candidate for chemo or surgical intervention as per daughter MECHE CHOWDARY MD Sep 26, 2025 13:23 DICTATED BY:MECHE CHOWDARY MD DICTATED DATE/TIME:09/26/25 1323 ELECTRONICALLY SIGNED BY:MECHE CHOWDARY MD 09/26/25 1323 ELECTRONICALLY CO-SIGNED BY: Patient: PAIGE ALAS [facility] Acct: [id number] : 1940 Loc: [facility] Age/Sex: 84/M [id number] Subjective No new complaints Changes from previous H/P or p: No Changes Objective Vitals Vital Signs Date Time Temp Pulse Resp B/P (MAP) Pulse Ox O2 Delivery O2 Flow Rate FiO2 09/25/25 09:09 67 138/68 09/25/25 09:05 98.1 16 98 98.1 09/25/25 08:10 Room Air* 0 21 Intake/Output Intake and Output 09/25/25 07:00 Intake Total 1120 ml Balance 1120 ml Intake Oral 1020 ml IV Total 100 ml Tube Feeding 0 ml # Voids 8 # Bowel Movements 2 Exam General: NAD, AAOX3 Chest: lung stephens clear to auscultation Heart: RRR, no murmur Abdomen: non-distended, no tenderness to palpation, +BS Medications Current Medications Medications Dose Ordered Sig/Maurisio Route Start Time Stop Time Status Last Admin Dose Admin Sodium Chloride 1,000 ml @ 60 mls/hr [id number] IV 09/23/25 13:15 09/24/25 06:36 60 MLS/HR Acetaminophen 650 mg Q6HP PRN PO 09/23/25 13:15 Morphine Sulfate 2 mg Q4HPRN PRN IV 09/23/25 13:15 Ondansetron HCl 4 mg Q8HPRN PRN IV 09/23/25 13:15 Losartan Potassium 50 mg DAILY PO 09/24/25 10:00 Hold Pantoprazole Sodium 40 mg BID IV 09/23/25 18:45 09/25/25 09:01 40 MG Ferrous Sulfate 325 mg DAILY PO 09/25/25 10:00 09/25/25 09:01 325 MG Sucralfate 1 gm QIDACHS PO 09/24/25 10:30 09/24/25 22:11 1 GM Ergocalciferol 50,000 unit Q7D PO 09/24/25 10:45 09/24/25 11:21 50,000 UNIT Metoprolol Succinate 25 mg DAILY PO 09/25/25 10:00 Flecainide Acetate 50 mg Q12HR PO 09/24/25 22:00 Laboratory Results Laboratory Tests 09/25/25 05:05 Chemistry Test 09/25/25 05:05 Calcium Level 8.1 mg/dL (8.7-10.4) L Magnesium Level 2.0 mg/dL (1.6-2.6) Urinalysis Test 09/23/25 11:18 Urine Color Light-yellow (Yellow) Urine Clarity Clear (Clear) Urine pH 6.5 (5.0-9.0) Urine Specific [place] 1.022 (1.001-1.035) Urine Protein Negative (Negative) Urine Ketones Negative (Negative) Urine Blood Negative /uL (Negative) Urine Nitrite Negative (Negative) Urine Bilirubin Negative (Negative) Urine Urobilinogen Normal mg/dL (Negative) Urine Leukocyte Esterase Negative /uL (Negative) Urine RBC 2 /hpf (0 - 3) Urine Microscopic WBC 1 /HPF (0-3) Urine Squamous Epithelial Cells Few /hpf (<5) Urine Bacteria None seen /hpf (None Seen) Urine Glucose Normal mg/dL (Normal) Assessment/Plan Assessment/Plan Abdominal pain Anemia Possible GI bleed Abdominal CT results Gastric antral mass diagnosed in 06/02/2024 with pathology showing adenocarcinoma NSTEMI Pacemaker Plan: Discussed with Dr. Chowdary Patient procedure we will have to be rescheduled for tomorrow due to non availability of MAC sedation with anesthesiologist We will restart clear liquids for today and NPO after midnight Scheduled for EGD tomorrow 09/26/2025 Plan discussed with: Patient, Daughter, Other (RN) My Orders Orders - ANA ROSA ARMENDARIZ Procedure Category Date Status Time Clear Liq Diet DIET 09/25/25 Transmitted Lunch Obtain Consent For GIOVANI 09/25/25 In Process Anesthesia 13:09 Obtain Consent For: ORDERS 09/25/25 Verified 13:09 Date of Service: Sep 25, 2025 Billing Provider: ANA ROSA ARMENDARIZ Common Visit Codes: 39850-[id number] INP/OBS CARE(HIGH) ANA ROSA ARMENDARIZ Sep 25, 2025 13:26 E/M VISIT PERFORMED BY:MECHE CHOWDARY MD TRANSCRIBED BY:ANA ROSA ARMENDARIZ TRANSCRIBED DATE/TIME:09/25/25 1326 ELECTRONICALLY SIGNED BY:ANA ROSA ARMENDARIZ 09/25/25 1326 ELECTRONICALLY CO-SIGNED BY:MECHE CHOWDARY MD09/25/25 1834 Operations or Procedures [place] [id number] Ph: [phone] DIAGNOSTIC IMAGING Diagnostic Imaging Report : [id number] Signed PATIENT: PAIGE ALAS ACCT: [id number] UNIT: [id number] : 1940 LOC: OVERFLOW ROOM / BED: [address] [place] [address] / AGE / SEX: 84 / M ADM STATUS: ADM IN SERVICE 1315 ORDERING PHYSICIAN: MIQUEL QUINTANA RESIDENT PROCEDURE(s): ABPL - CT AB PEL WO CON-NO ORAL OR IV REASON: VOMIT FOR 2 WEEKS, R/O ANY GASTRIC OBSTRUCTION ORDER NUMBER(s): [id number], ACCESSION NUMBER(s): [id number] EXAM: CT CT AB PEL WO CON-NO ORAL OR IV INDICATION: VOMIT FOR 2 WEEKS, R/O ANY GASTRIC OBSTRUCTION TECHNIQUE: Volumetric multidetector CT images of the abdomen and pelvis were obtained without contrast. All CT scans at this facility use dose modulation, iterative reconstruction, and/or weight based dosing when appropriate to reduce radiation dose to as low as reasonably achievable. COMPARISON: CT CT AB PEL WITH IV CON ONLY on DOS: 03/08/25 FINDINGS: [LOWER CHEST]: The partially visualized lung bases are clear without a pleural effusion. Mild cardiomegaly. The cardiac size is normal without pericardial effusion. [LIVER]: Suspected small hypoattenuating lesion which is likely benign in the right inferior hepatic lobe measuring 7 mm. Normal hepatic size. [GALLBLADDER AND BILIARY TREE]: No cholelithiasis. [SPLEEN]: Unremarkable. [PANCREAS]: Unremarkable. [ADRENAL GLANDS]: Unremarkable [KIDNEYS]: No hydronephrosis. No nephroureterolithiasis. No suspicious focal lesion. [BLADDER]: Mild anterior bladder wall thickening. [REPRODUCTIVE ORGANS]: Fish-[id number] prostatomegaly. [BOWEL/MESENTERY]: Inconspicuous air-fluid level in the stomach without significant distention however correlate with clinical exam to exclude gastritis. Mild stool burden. No CT evidence of bowel obstruction. Normal appendix. [ASCITES]: Absent [LYMPHADENOPATHY]: No pathologically enlarged lymph nodes by CT size criteria [VASCULATURE]: Vascular calcifications. No aneurysmal dilatation. [ABDOMINAL WALL]: Unremarkable. [MUSCULOSKELETAL]: No acute fracture or aggressive focal osseous lesion. Multifocal degenerative change of the visualized spine. IMPRESSION: 1. Inconspicuous air-fluid level in the stomach without significant distention however correlate with clinical exam to exclude gastritis. 2. No CT evidence of bowel obstruction. 3. Mild stool burden. Correlate for constipation. 4. Atak-jf-asjmryzr prostatomegaly. ATED BY: LUKE SHAW MD DICTATED DATE/TIME: 09/23/258 SIGNED BY: LUKE SHAW MD SIGNED DATE/TIME: 09/23/25 1408 CC: [place] [id number] Ph: [phone] DIAGNOSTIC IMAGING Diagnostic Imaging Report : [id number] Signed PATIENT: PAIGE ALAS ACCT: [id number] UNIT: [id number] : 1940 LOC: ER ROOM / BED: / AGE / SEX: 84 / M ADM STATUS: REG ER SERVICE 1118 ORDERING PHYSICIAN: LESLY ANTONY MD PROCEDURE(s): CXRP - CHEST PORTABLE REASON: epigastric pain ORDER NUMBER(s): [id number], ACCESSION NUMBER(s): [id number] CHEST RADIOGRAPH Indication: epigastric pain Technique: Single frontal view of the chest was obtained COMPARISON: XY CHEST PORTABLE on DOS: 06/09/24, XY CHEST PORTABLE on DOS: 05/29/24, CT ANGIO CHEST CONTRAST on DOS: 04/04/22, CHEST TWO VIEWS ROUTINE on DOS: 04/04/22, CXR2 on DOS: 04/04/22 FINDINGS: Lines and Tubes: Left chest wall pacemaker. Lungs: Lungs are hyperinflated possibly representing underlying COPD. No focal airspace consolidation. Pleura: No effusion. No pneumothorax. Cardiomediastinal contours: Unremarkable Bones: Unremarkable IMPRESSION: No acute cardiopulmonary disease. ATED BY: CRUTIS FAUST MD DICTATED DATE/TIME: 09/23/25 1153 SIGNED BY: CURTIS FAUST MD SIGNED DATE/TIME: 09/23/25 1153 CC: [place] [id number] Ph: [phone] DIAGNOSTIC IMAGING Diagnostic Imaging Report : [id number] Signed PATIENT: PAIGE ALAS ACCT: [id number] UNIT: [id number] : 1940 LOC: EAST ROOM / BED: 0232 / A AGE / SEX: 84 / M ADM STATUS: ADM IN SERVICE 1324 ORDERING PHYSICIAN: MECHE CHOWDARY MD PROCEDURE(s): GIWAG - UGI WITH GASTROGRAFIN REASON: Gastric antral mass adenocarcinoma with fistulous opening ORDER NUMBER(s): [id number], ACCESSION NUMBER(s): [id number] UGI WITH GASTROGRAFIN, HISTORY: Gastric antral mass adenocarcinoma with fistulous opening COMPARISON: None PROCEDURE: A retail clerk radiograph was obtained prior to the procedure. Gastrografin and effervescent granules were administered orally, and radiographs were obtained under intermittent fluoroscopic observation. Total fluoroscopic time was 1.0. FINDINGS: The esophagus was normal in caliber with no stricture, filling defect or wall irregularity demonstrated. Normal esophageal peristalsis was observed. There was prompt passage of contrast through a normal appearing gastroesophageal junction. The stomach distended. Contour irregularity at the pyloric antrum along the greater curvature could be a mass like ulceration. Contrast flowed into more distal loops of small bowel, with no abnormality identified. IMPRESSION: Contour irregularity at the pyloric antrum along the greater curvature could be a mass like ulceration. Clinically correlate with endoscopy. 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 #NSTEMI type 2 likely demand lead ischemia ## atrial fibrillation, on pacemaker # severe anemia likely from GI bleeding # hematochezia # BPH Discharge Disposition: Hospice - Home Discharge Instruct/Medications Diet: Cardiac 2g Na,low cholest Activity: No Restrictions, As Tolerated Follow Up/Referral: MD at hospice Medications: As above Scheduled Amlodipine Besylate (Amlodipine Besylate), 1 TAB PO DAILY, (Reported) Atorvastatin Calcium (Atorvastatin Calcium), 40 MG PO HS Cholecalciferol (Vitamin D3), 1,000 UNIT PO DAILY, (Reported) Ferrous Sulfate (Ferrous Sulfate), 325 MG PO EOD Losartan Potassium (Losartan Potassium), 100 MG PO DAILY, (Reported) Losartan Potassium (Losartan Potassium), 100 MG PO DAILY, (Reported) Metoprolol Tartrate (Metoprolol Tartrate), 1 TAB PO BID Naphazoline W/ Pheniramine (Naphcon-A 0.025-0.3 %), 1-2 DROP OP QIDPRN Nirmatrelvir/Ritonavir (PAXLOVID 20 x 150 MG & 10 x 100MG), 1 TAB PO BID Pantoprazole Sodium Sesquihydr (Pantoprazole Sodium), 1 TAB PO DAILY, (Reported) Saline (Saline [place]), 0.65 % NA UD Miscellaneous Medications Cholecalciferol (Vitamin D3), 2,000 UNIT OR, (Reported) Discharge Statement: "Patient was advised to return to the ER or call 911 if any headaches, dizziness, shortness of breath, chest pain, abdominal pain, bleeding, fevers, or worsening of medical condition. Patient was counseled about treatment plan, medications, possible side effects, patientverbalized understanding. All questions were answered to the best of my ability. This discharge took greater then 30 minutes in planning, reviewing documentation, counseling the patient, and discussing with other team members." ASSESSMENT ASSESSMENT Assessment Adenocarcinoma of the stomach Status post chemotherapy and radiotherapy Severe anemia Hypertension BPH Visit Coding STANDARD RES Billing Provider: MELO ALANIZ MD Date of Service if different f: Sep 28, 2025 Common Visit Codes: 17112-BAS/OBS DISCH DAY >30min PATTY ROSENBAUM RESIDENT Sep 28, 2025 15:12
[2025-09-28] MEDS ORDERED: SUCRALFATE 1 GM/10 ML ORAL SUSP PO SCH (17:00)
[2025-09-28] MEDS ORDERED: PANTOPRAZOLE 40 MG/10 ML VIAL INJ IV SCH (22:00)
== END 2025-09-28 16:00 | disposition hospice, home (50) | DRG 391 ==
LOC: ER 10:28 → OVERFLOW 13:02 → TELE-EAST 09-24 04:45 → EAST 09-26 07:57
PROVIDERS: ADMIT Internal Medicine Geriatric Medicine; ATTEND Internal Medicine Geriatric Medicine
PROC: 0DB98ZX Excision of Duodenum, Via Natural or Artificial Opening Endoscopic, Diagnostic (ICD-10-PCS; 2025-09-26)
PROC: 0DB68ZX Excision of Stomach, Via Natural or Artificial Opening Endoscopic, Diagnostic (ICD-10-PCS; 2025-09-26)
PROC: 30233N1 Transfusion of Nonautologous Red Blood Cells into Peripheral Vein, Percutaneous Approach (ICD-10-PCS; principal; 2025-09-27)
DX: K52.9 Noninfective gastroenteritis and colitis, unspecified (principal); I21.A1 Myocardial infarction type 2; K31.6 Fistula of stomach and duodenum; D50.9 Iron deficiency anemia, unspecified; I10 Essential (primary) hypertension; J44.9 Chronic obstructive pulmonary disease, unspecified; E78.5 Hyperlipidemia, unspecified; K29.70 Gastritis, unspecified, without bleeding; N40.0 Benign prostatic hyperplasia without lower urinary tract symptoms; I25.10 Atherosclerotic heart disease of native coronary artery without angina pectoris; I48.0 Paroxysmal atrial fibrillation; I25.2 Old myocardial infarction; Z82.3 Family history of stroke; Z82.49 Family history of ischemic heart disease and other diseases of the circulatory system; Z85.028 Personal history of other malignant neoplasm of stomach; Z98.61 Coronary angioplasty status; Z95.0 Presence of cardiac pacemaker; Z87.891 Personal history of nicotine dependence
CPT/HCPCS: 36415; 43239; 71045; 74176; 74246; 80048; 80053; 80061; 80307; 81001; 82306; 82607; 82728; 82962; 83036; 83540; 83550; 83605; 83690; 83735; 84100; 84443; 84484; 85014; 85018; 85025; 85610; 85730; 86850; 86900; 86901; 86920; 93005; 93306; 99291; G0378; J0330; J1756; J1815; J2250; J2470; J2704